=== PATIENT | male | born 1955 | race Caucasian/White ===

== ENCOUNTER → 2020-07-13 15:14 | Outpatient (BNVA) | payer OTHER, SELFPAY | PROVIDERS: PCP Internal Medicine; Referring Provider Physician Assistant; Visit Provider Internal Medicine Cardiovascular Disease | DX: I48.0 Paroxysmal atrial fibrillation (principal) | CPT/HCPCS: 99204 ==

== ENCOUNTER 2020-07-26 09:00 | Outpatient (RCR) | payer OTHER, SELFPAY ==
--- NOTE | 2020-08-29 09:11 | MHC.PT.DC ---
[facility] [place] [facility] [place] [facility] [place] [facility] [address] [phone] F: [phone] F: [phone] F: [phone] F: [phone] Physical Therapy Discharge Report Diagnosis: DIAGNOSIS: RIGHT KNEE OA Date of Surgery: none Date of Evaluation: 07/12/20 Date of Discharge: 07/25/20 Treatments to Date: 3 Cancellations to Date: 0 No Shows to Date: 0 Discharge Status: Recommend MD Follow-up for cardiac complaints Discharge Summary: Pt reported to provider that during bike that he is being worked up for rapid HR/afib. BP after bike 141/104 HR 106, SA02 98%. Following seated rest 118/85 HR 84 [id number] PT cx for Fri. JUL 16 for Cardiac workup. Electronically signed by: Sheila Sheth CONFIGURATION ENGINEER/EVERTON ONEAL PT, DPT Please sign and return to therapist. Thank you for your referral.
== END 2020-08-29 09:20 | disposition other institution (70) ==
LOC: HO.PT 09:00
PROVIDERS: Visit Provider Physician Assistant
DX: M17.11 Unilateral primary osteoarthritis, right knee (principal)
CPT/HCPCS: 97110; 97530

== ENCOUNTER → 2020-07-28 09:24 | Outpatient (REF) | payer OTHER, SELFPAY ==
--- NOTE | 2020-07-28 09:30 | CA_ITS ---
Transthoracic Echocardiogram Patient (Last, First, Middle): Huber Keys R Gender: Male Date of : 1955 Age: 64 Procedure Date: 07/28/2020 Procedure Type: Transthoracic Echocardiogram Location: OP Height: 182.88 cm Weight: 95.25 kg BSA: 2.17 m2 Heart Rate: bpm BP: 122 / 78 mmHg Hydrometer Finisher: Referring MD: Kenny Isabel MD Symptoms: I48.0 PAF Study Quality: Good ECG Rhythm: Atrial Fibrillation Conclusions: - Mildly increased left ventricular cavity size. There is normal left ventricular wall thickness. The left ventricular systolic function is severely decreased. The visually estimated ejection fraction is between 15-20%. - Mildly increased right ventricular cavity size. There is mildly decreased right ventricular systolic function. - Severe biatrial enlargement. - There is moderate to severe mitral valve regurgitation. There is apical tethering of the mitral valve leaflets. - There is moderate tricuspid valve regurgitation. There is apical tethering of the tricuspid valve leaflets. Significantly elevated right atrial pressure. Mild pulmonary hypertension is present. - There is mild dilatation of the ascending aorta. Findings Left Ventricle Mildly increased left ventricular cavity size. There is normal left ventricular wall thickness. The left ventricular systolic function is severely decreased. The visually estimated ejection fraction is between 15 20%. There is severe global hypokinesis. Diastolic function is indeterminate on the basis of available data. Right Ventricle Mildly increased right ventricular cavity size. There is mildly decreased right ventricular systolic function. Atria Severe biatrial enlargement. There is no evidence of interatrial shunt by color Doppler. Aortic Valve There is a normal trileaflet aortic valve. There is no aortic valve stenosis. There is trace (trivial) aortic valve regurgitation. Mitral Valve There is moderate to severe mitral valve regurgitation. There is apical tethering of the mitral valve leaflets. Pulmonic Valve The pulmonic valve is likely normal. Tricuspid Valve There is moderate tricuspid valve regurgitation. There is apical tethering of the tricuspid valve leaflets. Significantly elevated right atrial pressure. Mild pulmonary hypertension is present. Great Vessels There is mild dilatation of the ascending aorta. The visualized portions of the pulmonary artery and branches are normal. Venous The inferior vena cava is dilated and does not collapse with inspiration. Pericardium/Pleural There is no evidence of pericardial effusion. Prior Study Comparison No prior study available for comparison. Measurements 2D Linear Measurements IVSd: 1.05 0.6-0.9/0.6-1.0 cm LVIDd: 6.17 3.9-5.3/4.2-5.9 cm LVIDs: 5.55 2.0-3.6 cm LVPWd: 1.01 0.7-1.1 cm Ao Root: 3.59 2.1-3.5 cm LV Mass: 335.90 67-162/88-224 g LVOT Diam: 2.21 3.0+(-)1.3 cm Mitral Valve MR VTI: 1.85 Aortic Valve AoV Pk Fam: 0.89 AoV Mn Fam: 0.65 AoV VTI: 0.18 AoV Pk Grad: 3.14 Aov Mn Grad: 1.91 LVOT LVOT Pk Fam: 0.81 LVOT Mn Fam: 0.54 LVOT VTI: 0.15 LVOT Pk Grad: 2.65 LVOT Mn Grad: 1.42 LVOT Diam: 2.21 LVOT Area: 3.85 Tricuspid Valve TR Pk Fam: 2.64 TR Pk Grad: 27.90 RA Press: 3.00 RVSP: 45.00 Great Vessels Aorta Ao Root-2D: 3.59 2.0-3.7 cm Ao Asc: 3.70 2.1-3.4 cm Pulmonary Valve PV Pk Fam: 0.74 Peak PV Grad: 2.20 Updated in Other Vendor System with Status of Final Kenny Isabel MD electronically signed on 07/30/2020 8:02:49 PM with status of Final
== END ==
LOC: HO.CARD 09:24
PROVIDERS: Visit Provider Internal Medicine Cardiovascular Disease
DX: I48.0 Paroxysmal atrial fibrillation (principal)
CPT/HCPCS: 93306

== ENCOUNTER 2020-10-19 15:42 | Inpatient (IN) | payer OTHER, SELFPAY ==
[2020-10-19 19:09] VITALS: PULSE 105; RESP 16; TEMP 36.7; O2SAT 97; BMI 29.7
--- NOTE | 2020-10-19 19:38 | ED_ITS ---
HPI - Fall General Chief Complaint: Fall Stated Complaint: FALL Time Seen by Provider: 10/19/20 19:32 Source: patient Mode of arrival: ambulatory Limitations: no limitations History of Present Illness HPI Narrative: Patient was standing on the ladder about 10 ft high did not eat much all day today was exhausted felt lightheaded and next thing he noticed that he fell down was wearing the hard hat found himself face down on the dirt complaining of upper back pain no chest pain or shortness of breath no palpitation a similar episode of dizziness last year patient complaining of pain in the upper back and the lower jaw no headache no extremities pain patient was told that he has atrial fibrillation about 2 months ago and had intermittent palpitation but he did not aware most of the time not been treated with any medications and today also patient earlier in the morning felt dizzy and has slight palpitation but is not sure when he was on the ladder. When he arrived his heart rate was between 130s in 140s AFib complaint: fall Related Data Home Medications Medication Instructions Recorded Confirmed No Known Home Meds 07/13/20 07/13/20 Allergies Allergy/AdvReac Type Severity Reaction Status Date / Time amoxicillin [AMOXICILLIN] AdvReac Unknown STOMACH Verified 07/13/20 15:29 UPSET Review of Systems Review of Systems: Constitutional : No Weight loss, No Fever, No Chills ENT/Mouth : No sore throat, No Rhinorrhea Eyes: No Eye Pain, No Swelling Cardiovascular : No Chest Pain, no palpitations Respiratory : No Cough, No Sputum, no shortness of breath Gastrointestinal : no Nausea, No Vomiting, No Diarrhea, No abdominal Pain, no black stools Genitourinary : No Dysuria, No Urinary Frequency Musculoskeletal : No joint pain, No Myalgias, No Joint Swelling Skin : No Skin Lesions, No rash Neuro : No Weakness, No Numbness, ++ Dizziness, No Headache Psych : No Anxiety/Panic, No Depression Heme/Lymph: No Bruising, No Lymphadenopathy Endocrine : No Polyuria, No Polydipsia All other systems reviewed and are negative [facility] Past Medical History Medical History Basal cell carcinoma Elevated PSA 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 Surgical History Hx of vein stripping S/P left inguinal herniorrhaphy Family History Family History Father Lymphoma Mother Hemochromatosis Factor V Leiden Esophageal cancer Social History Social History Alcohol intake: current Alcohol intake frequency: a few times a month Smoking Status: Never smoker Use of substances other than those prescribed or required for medical reasons: No Advance Directives: No Advance Directives Information Provided: Yes Physical Exam Vital Signs: Vital Signs: Last Vital Signs Temp 98.1 F 10/19/20 19:09 Pulse 93 10/19/20 22:17 Resp 18 10/19/20 22:17 BP 131/93 H 10/19/20 22:17 Pulse Ox 97 10/19/20 22:17 Body Mass Index 29.7 Const: General: cooperative, healthy appearing, comfortable and no acute distress Nutritional Appearance: average body habitus Orientation/con sciousness: oriented to person, oriented to place, oriented to time and patient oriented x3 HENMT: Head: Yes No palpable skull fracture present, Yes normocephalic and Yes atraumatic Ears: hearing grossly normal bilaterally, external ears normal and TM's normal bilaterally General nose exam: Normal external nose present Face and sinus: Yes normal facial exam Mouth: Normal oral and palatal mucosa present Teeth and gingiva: dentition normal Teeth image: 1. Diffuse tenderness lower teeth Eyes: General: appearance normal, both eyes and all related structures Conjunctivae: conjunctivae normal Sclerae: sclerae normal Pupils: Equal, round and reactive pupils present Neck: Neck: Yes normal visual inspection, Yes full ROM, Yes no lymphadenopathy, No midline deformity and No tender Chest: Chest palpation & inspection: normal inspection of the chest and normal palpation of entire chest wall Resp: Effort & Inspection: normal respiratory effort Auscultation: clear to auscultation bilaterally, no crackles, no rales and no rhonchi Cardio: Rate: tachycardic Rhythm: abnormal rhythm irregularly irregular Heart sounds: S1 normal heart sound present and S2 normal heart sound present GI: Inspection: Yes normal to inspection Palpation (GI): Soft to palpation and nontender Percussion: Yes normal to percussion : General: Yes no CVA tenderness Back/Spine/Pelvis: Back: no CVA tenderness Cervical Spine: normal cervical lordosis, cervical ROM normal and No pain with cervical ROM Thoracic/Lumbar Spine: straight leg raise negative bilaterally, thoraco-lumbar spasm, thoracic spinal tenderness at T6 and at T7, No lumbar spinal tenderness and No straight leg raise positive Skin: General skin exam: no rashes or lesions noted Neuro: General: oriented to person, oriented to place, oriented to time, patie nt oriented x3, gait normal, tone normal, moves all extremities, no focal motor deficits, CN's II-XI intact bilaterally and normal sensation to monofilament Cranial nerves: Yes Equal, round and reactive pupils present Extrem: General: Yes normal to inspection, Yes full ROM and Yes no pedal edema MDM - Fall MDM Narrative Medical decision making narrative: Patient with atrial fibrillation not on any treatment came here after syncope episode with fall while on the ladder CT scan did not show any acute injury radiographer cardiac catheterization showed atrial fibrillation with ventricular rate in 130s responded to IV Cardizem patient started on heparin patient denies any chest pain troponin is elevated likely from increased demand because of AFib of the head C-spine and facial bones and thoracic spine is negative for any acute fracture will admit patient for AFib syncope and ACS Differential Diagnosis Differential diagnosis: Likely syncope Medical Records Attestation: I reviewed the patient's medical records. Lab Data Attestation: I reviewed the patient's lab results. Result diagrams: 10/19/20 20:04 10/19/20 20:04 Labs: Lab Results 10/19/20 10/19/20 10/19/20 Range/Units 20:04 20:04 20:04 WBC 10.0 (4.8-10.8) X10*3/uL RBC 4.57 L (4.60-5.80) X10*6/uL Hgb 14.9 (14.0-18.0) g/dl Hct 42.4 (42-52) % MCV 92.8 (80-98) fL MCH 32.6 (27.0-33.0) pg MCHC 35.1 (31.0-36.0) g/dl RDW 12.6 (11.0-16.0) % Plt Count 146 L (160-400) X10*3/uL MPV 9.7 (9.4-12.4) fL Immature Gran % (Auto) 0.2 (0.0-0.4) % Neut % (Auto) 86.0 H (45-73) % Lymph % (Auto) 6.6 L (20-40) % [place] % (Auto) 6.8 (2-11) % Eos % (Auto) 0.1 (0-4) % Baso % (Auto) 0.3 (0-2) % Lymph # (Auto) 0.7 L (1.2-4.9) X10*3/uL [place] # (Auto) 0.7 (0.1-1.2) X10*3/uL Eos # (Auto) 0.0 (0.0-0.4) X10*3/uL Baso # (Auto) 0.0 (0.0-0.2) X10*3/uL Abs Immat Gran (auto) 0.02 (0.00-0.03) X10*3/uL Absolute Neuts (auto) 8.6 H (2.0-8.3) X10*3/uL Absolute Nucleated RBC 0.000 (0.0-0.012) X10*3/uL Nucleated RBC % (auto) 0.0 (0.0-0.2) /100WBC PT 14.1 H (10.8-13.0) SEC INR 1.2 H (0.9-1.1) APTT 35.2 (24.1-38.0) SEC Sodium (135-145) mmol/L Potassium (3.3-5.1) mmol/l Chloride (96-108) mmol/L Carbon Dioxide (22-29) mmol/L Anion Gap (12-20) BUN (9-16) mg/dL Creatinine (0.5-1.4) mg/dL Estim Creat Clear Calc Estimated GFR Random Glucose (60-115) mg/dL Calcium (8.4-10.2) mg/dL Total Bilirubin (0.0-1.0) mg/dL Direct Bilirubin (0.0-0.5) mg/dL AST (5-37) U/L ALT (0-40) U/L Alkaline Phosphatase (39-117) U/L Troponin I High Sens 1149.7 H (<3.5-35.0) ng/L Total Protein (6.5-8.0) g/dL Albumin (3.5-5.0) g/dL 10/19/20 Range/Units 20:04 WBC (4.8-10.8) X10*3/uL RBC (4.60-5.80) X10*6/uL Hgb (14.0-18.0) g/dl Hct (42-52) % MCV (80-98) fL MCH (27.0-33.0) pg MCHC (31.0-36.0) g/dl RDW (11.0-16.0) % Plt Count (160-400) X10*3/uL MPV (9.4-12.4) fL Immature Gran % (Auto) (0.0-0.4) % Neut % (Auto) (45-73) % Lymph % (Auto) (20-40) % [place] % (Auto) (2-11) % Eos % (Auto) (0-4) % Baso % (Auto) (0-2) % Lymph # (Auto) (1.2-4.9) X10*3/uL [place] # (Auto) (0.1-1.2) X10*3/uL Eos # (Auto) (0.0-0.4) X10*3/uL Baso # (Auto) (0.0-0.2) X10*3/uL Abs Immat Gran (auto) (0.00-0.03) X10*3/uL Absolute Neuts (auto) (2.0-8.3) X10*3/uL Absolute Nucleated RBC (0.0-0.012) X10*3/uL Nucleated RBC % (auto) (0.0-0.2) /100WBC PT (10.8-13.0) SEC INR (0.9-1.1) APTT (24.1-38.0) SEC Sodium 136 (135-145) mmol/L Potassium 4.2 (3.3-5.1) mmol/l Chloride 102 (96-108) mmol/L Carbon Dioxide 25 (22-29) mmol/L Anion Gap 13 (12-20) BUN 20 H (9-16) mg/dL Creatinine 0.91 (0.5-1.4) mg/dL Estim Creat Clear Calc 107.3 Estimated GFR > 60 Random Glucose 129 H (60-115) mg/dL Calcium 8.5 (8.4-10.2) mg/dL Total Bilirubin 3.3 H (0.0-1.0) mg/dL Direct Bilirubin 0.7 H (0.0-0.5) mg/dL AST 91 H (5-37) U/L ALT 81 H (0-40) U/L Alkaline Phosphatase 75 (39-117) U/L Troponin I High Sens (<3.5-35.0) ng/L Total Protein 6.8 (6.5-8.0) g/dL Albumin 4.5 (3.5-5.0) g/dL ECG Data Attestation: I personally reviewed and interpreted this ECG as follows: Interpretation: Atrial fibrillation with rapid ventricular rate heart rate 125 incomplete right bundle-branch block left anterior fascicular block no acute ischemic changes impression atrial fibrillation with fast ventricular rate Discharge Plan Discharge Clinical Impression: Atrial fibrillation with rapid ventricular response Syncope Qualifiers: Syncope type: unspecified Qualified Code(s): R55 - Syncope and collapse Fall from ladder Qualifiers: Encounter type: initial encounter Qualified Code(s): W11.XXXA - Fall on and from ladder, initial encounter Patient Disposition: Admitted As Inpatient
--- NOTE | 2020-10-19 19:42 | CT_ITS ---
EXAMINATION: CT THORACIC SPINE WITHOUT CONTRAST CLINICAL INFORMATION: Fall. Pain. COMPARISON: None TECHNIQUE: Axial images obtained through the thoracic spine. Coronal and sagittal reformatted images are performed at CT scanner This CT examination was performed using dose optimization techniques as appropriate, variously including the following: *Automated exposure control *Adjustment of mA and/or kV according to patient size (this includes techniques or standardized protocols for targeted exams where dose is matched to indication/reason for exam; i.e. extremities or head) *Use of iterative reconstruction technique DLP: 831.49+23.39 mGy-cm FINDINGS: Thoracic vertebrae have normal height and alignment. No fracture or bone destruction. No paraspinal soft tissue hematoma or mass. There is degenerative spondylosis. There is multilevel disc height narrowing with bridging and nonbridging vertebral endplate spurs. CT/CT thoracic spine wo con IMPRESSION: No acute abnormality CT of thoracic spine.
--- NOTE | 2020-10-19 19:43 | CT_ITS ---
EXAMINATION: CT HEAD WITHOUT CONTRAST CT FACIAL BONES WITHOUT CONTRAST CT CERVICAL SPINE WITHOUT CONTRAST CLINICAL INFORMATION: Fall. COMPARISON: None. TECHNIQUE: Imaging was performed from the skull base to vertex without intravenous administration of contrast. In addition, helical noncontrast CT imaging was acquired through the cervical spine and facial bones and source images were reviewed along with axial reconstructions and sagittal and coronal MPRs. [This CT examination was performed using dose optimization techniques as appropriate, variously including the following: *Automated exposure control *Adjustment of mA and/or kV according to patient size (this includes techniques or standardized protocols for targeted exams where dose is matched to indication/reason for exam; i.e. extremities or head) *Use of iterative reconstruction technique] DLP: 826.55+513.78+297.02+10.25 mGy-cm FINDINGS: HEAD: No intracranial mass, hemorrhage, or midline shift is visualized. The ventricles and sulci are age-appropriate. No extra-axial collections are identified. FACIAL BONES: There is no facial bone fracture. The orbits and retrobulbar structures are normal. There are small areas of lobular mucosal thickening in the right maxillary sinus. The paranasal sinuses are otherwise normally aerated. There is normal aeration of the mastoid air cells and middle ear cavities. CERVICAL SPINE: There is no evidence of acute cervical spine fracture. Vertebral bodies remain normal in height. There is degenerative disc height narrowing and vertebral endplate spurring C4-C5 through C6-C7. No pre- or paravertebral soft tissue abnormality is identified. Limited assessment of the lung apices is unremarkable. CT/CT cervical spine wo con IMPRESSION: 1. No acute intracranial process or discrete facial bone fracture. 2. No acute cervical spine fracture or traumatic subluxation.
--- NOTE | 2020-10-19 19:45 | ECG_ITS ---
Test Reason : SYNCOPE Blood Pressure : / mmHG Vent. Rate : 125 BPM Atrial Rate : 115 BPM P-R Int : 000 ms QRS Dur : 116 ms QT Int : 342 ms P-R-T Axes : 000 -53 002 degrees QTc Int : 493 ms Atrial fibrillation with rapid ventricular response with premature ventricular or aberrantly conducted complexes Incomplete right bundle branch block Left anterior fascicular block Septal infarct , age undetermined Abnormal ECG No previous ECGs available Referred By: John Avendano Electronically Signed By:Kenny Isabel
--- NOTE | 2020-10-19 19:56 | PC.NURSE ---
pt put on monitor, rythm afib RVR rate 150-161. Pt reports mild dizziness. He states his MD told him he had afib but he was going to seek a second oppinion. He is not taking any meds or blood thinners
[2020-10-19 20:20] LABS: Basophils Percent Auto 0.3 % (0-2); Eosinophils Percent Auto 0.1 % (0-4); Hematocrit 42.4 % (42-52); Hemoglobin 14.9 g/dl (14.0-18.0); Imm Gran Abs Auto 0.02 X10*3/uL (0.00-0.03); Imm Gran Pct Auto 0.2 % (0.0-0.4); Lymphocytes Absolute Auto 0.7 X10*3/uL (1.2-4.9); Lymphocytes Percent Auto 6.6 % (20-40); Mean Corpuscular HGB Conc 35.1 g/dl (31.0-36.0); Mean Corpuscular Hemoglobin 32.6 pg (27.0-33.0); Mean Corpuscular Volume 92.8 fL (80-98); Mean Platelet Volume 9.7 fL (9.4-12.4); Monocytes Absolute Auto 0.7 X10*3/uL (0.1-1.2); Monocytes Percent Auto 6.8 % (2-11); Neutrophils Absolute Auto 8.6 X10*3/uL (2.0-8.3); Platelet Count 146 X10*3/uL (160-400); Red Blood Count 4.57 X10*6/uL (4.60-5.80); Red Cell Distribution Width 12.6 % (11.0-16.0); SCAN SMEAR FLAG 1
[2020-10-19 20:23] LABS: MANUAL DIFF FLAG NO
[2020-10-19 20:26] LABS: INTERNATIONAL NORM RATIO 1.2 (0.9-1.1); Prothrombin Time 14.1 SEC (10.8-13.0)
[2020-10-19 20:28] LABS: Partial Thromboplastin Time 35.2 SEC (24.1-38.0)
[2020-10-19 20:46] LABS: Alanine Aminotransferase 81 U/L (0-40); Albumin Level 4.5 g/dL (3.5-5.0); Alkaline Phosphatase 75 U/L (39-117); Anion Gap 13 (12-20); Aspartate Amino Transferase 91 U/L (5-37); Bilirubin Direct 0.7 mg/dL (0.0-0.5); Bilirubin Total 3.3 mg/dL (0.0-1.0); Blood Urea Nitrogen 20 mg/dL (9-16); Calcium 8.5 mg/dL (8.4-10.2); Carbon Dioxide 25 mmol/L (22-29); Chloride 102 mmol/L (96-108); Creatinine Clr Calc Pharmacy 107.3; Estimated Glomerular Filt Rate > 60; Glucose Random 129 mg/dL (60-115); Potassium 4.2 mmol/l (3.3-5.1); Sodium 136 mmol/L (135-145); Total Protein 6.8 g/dL (6.5-8.0)
[2020-10-19 20:59] LABS: Troponin-I High Sensitivity 1149.7 ng/L (<3.5-35.0)
[2020-10-19] MEDS: dilTIAZem HCL 50 MG/10 ML VIAL 20 MG IVPUSH (21:01)
[2020-10-19 21:25] VITALS: BP 126/99; PULSE 93; RESP 16; O2SAT 99
[2020-10-19] MEDS: Heparin Sodium,Porcine 5,000 UNIT/ML VIAL 5000 UNIT IVPUSH (21:28)
[2020-10-19] MEDS: Heparin Sodium,Porcine/1/2NS 25,000 UNIT/250 ML IV.SOLN 10.5 UNIT IVCONT (21:32)
[2020-10-19] MEDS: Aspirin 81 MG TAB.CHEW 162 MG PO (21:39)
--- NOTE | 2020-10-19 22:10 | PC.NURSE ---
pt got first dose of IVP diltiazem with improvement of HR. He is afib rate 90-100. Pt tolerating PO snack. Hepari drip started per protocol. Will continue to monitor
[2020-10-19 22:17] VITALS: BP 131/93; PULSE 93; RESP 18; O2SAT 97
--- NOTE | 2020-10-19 23:30 | PC.NURSE ---
ASSUMED CARE OF PT. PT RESTING IN STRETCHER IN NAD. PT DENIES ANY COMPLAINTS. HEPARIN UP AND RUNNING ON PUMP AT 10UNITS/KG/HR, SITE INTACT. PT REMAIN ON MONITOR IN A-FIB WTIH A HR OF 90. PT WAKES TO VERBAL STIMULI, RESPIRATIONS EASY, N/L. SKIN W/D. PT ADMITTED AND AWAITING FOR ROOM ASSIGNMENT IN AM.
[2020-10-20] VITALS (12 sets, daily range): BP systolic 121–144; BP diastolic 68–98; PULSE 84–111; RESP 15–24; TEMP 36.9–37.1; O2SAT 95–98
--- NOTE | 2020-10-20 | ECG_ITS ---
Test Reason : SYNCOPE Blood Pressure : / mmHG Vent. Rate : 092 BPM Atrial Rate : 202 BPM P-R Int : 000 ms QRS Dur : 120 ms QT Int : 404 ms P-R-T Axes : 000 -52 -42 degrees QTc Int : 499 ms Atrial fibrillation with premature ventricular or aberrantly conducted complexes Right bundle branch block Left anterior fascicular block Bifascicular block Septal infarct (cited on or before 19-OCT-2020) T wave abnormality, consider lateral ischemia Abnormal ECG When compared with ECG of 19-OCT-2020 20:09, No significant changes seen Referred By: Heather Richter Electronically Signed By:Kenny Isabel
[2020-10-20 00:50] LABS: Appearance Urine CLEAR; Color Urine YELLOW; Glucose Urine UA NEG (NEG); Leukocyte Esterase Urine NEG (NEG); Nitrite Urine NEG (NEG); PH 6.5 (5.0-8.0); Urine Blood 3+ (NEG); Urine Ketones NEG (NEG); Urine Protein NEG (NEG-TRACE)
[2020-10-20 00:57] LABS: Bacteria Urine 1+ /LPF; Squamous Epithelial Cell Urine 1+ /LPF
[2020-10-20] MEDS: oxyCODONE HCl Immed Release 5 MG TABLET 10 MG PO (03:24)
--- NOTE | 2020-10-20 03:45 | PC.NURSE ---
PT C/O PAIN IN NECK, HEAD, AND UPPER BACK. MD AWARE AND MEDICATED FOR PAIN. PT ALSO UNABLE TO SLEEP D/T NOISE FROM OTHER PATIENTS IN ED. PT DENIES ANY OTHER COMPLAINTS. PT REMAINS ON MONITOR WITH HR 90. LABS DRAWN TO LAB FOR EVAL. HEPARIN REMAINS RUNNING ON PUMP, SITE INTACT. CALL ODEN AND URINAL W/I REACH OF PT. BED IN LOW LOCKED POSITION. WILL CONTINUE TO MONITOR PT.
[2020-10-20 04:00] LABS: PLT CLUMP 1
[2020-10-20 04:02] LABS: Hematocrit 39.9 % (42-52); Hemoglobin 13.8 g/dl (14.0-18.0); Mean Corpuscular HGB Conc 34.6 g/dl (31.0-36.0); Mean Corpuscular Volume 92.6 fL (80-98); Mean Platelet Volume 10.2 fL (9.4-12.4); Platelet Count 136 X10*3/uL (160-400); Red Blood Count 4.31 X10*6/uL (4.60-5.80); Red Cell Distribution Width 12.5 % (11.0-16.0); White Blood Count 8.5 X10*3/uL (4.8-10.8)
[2020-10-20 04:06] LABS: INTERNATIONAL NORM RATIO 1.3 (0.9-1.1); Prothrombin Time 15.6 SEC (10.8-13.0)
[2020-10-20 04:08] LABS: PTT Heparin Drip 88.7 SEC (53-77.9)
--- NOTE | 2020-10-20 04:11 | PC.NURSE ---
Pt resting in stretcher in NAD. Heparin up and running on pump, site intact. Pt remains on monitor with HR 71. Pt denies any complaints at this time.
--- NOTE | 2020-10-20 08:05 | PC.NURSE ---
report taken from Mehnaz SOTELO. pt sleeping upon assessment. woke easily to voice. breakfast provided. pt asking when he will be moved to room. informed pt that as soon as room is available and assign will inform him. heparin drip running at 8units/kg/hour. next ptt to be drawn at 930. pt reporting back pain from fall yesterday. alert and oriented x 3. .
[2020-10-20 10:00] LABS: PTT Heparin Drip 66.7 SEC (53-77.9)
--- NOTE | 2020-10-20 10:21 | PC.NURSE ---
pt PTT result 66.7. per protocol no bolus, no rate change. next PTT due 1530.
[2020-10-20] MEDS: Acetaminophen 325 MG TABLET 650 MG PO (11:56)
[2020-10-20 17:00] LABS: PTT Heparin Drip 60.2 SEC (53-77.9)
[2020-10-20 17:18] LABS: COVID-19 Test Negative (Negative); IDNOW Serial# 9DD0AD1C
[2020-10-20 18:03] LABS: Troponin-I High Sensitivity 266.7 ng/L (<3.5-35.0)
--- NOTE | 2020-10-20 18:26 | P.HPHOSP_ITS ---
History of Present Illness Date of Service: 10/20/20 <TYRONE Terrazas - Last Filed: 10/20/20 18:40> Chief Complaint: Syncope <TYRONE Terrazas - Last Filed: 10/20/20 18:40> This is a 64-year-old male who presents the emergency department after syncopal event. Patient states that he was working on his a ladder when he felt himself becoming lightheaded. He passed out falling from the ladder landing face 1st. This fall was witnessed and he came to immediately after falling. He denies any palpitations chest pain or shortness of breath prior to his fall. Imaging including facial bone CT, C-spine CT, thoracic spine CT, head CT showed no acute abnormalities. Patient does report intermittent palpitations over the past several weeks. He denies any chest pain or shortness of breath. He was diagnosed with atrial fibrillation and was evaluated by Cardiology in July. History CHADs score was low and he was not started on anticoagulation and he did not want to start any other rate control medication. He had an echocardiogram which showed an ejection fraction of 15-20%. On arrival he was noted to be in atrial fibrillation with rapid ventricular response. He was treated with a dose of IV Cardizem. Lab work revealed troponin of 1149. He was started on heparin drip. Repeat troponin has decreased to 266. EKG shows T-wave inversions in leads V4 through V6. <TYRONE Terrazas - Last Filed: 10/20/20 18:40> Review of Systems Review of Systems: Yes all other systems are reviewed and are negative <TYRONE Terrazas Last Filed: 10/20/20 18:40> Constitutional: Constitutional: Denies chills and Denies fever(s) <TYRONE Terrazas Last Filed: 10/20/20 18:40> Cardiovascular: Cardiovascular: Denies chest pain <TYRONE Terrazas Last Filed: 10/20/20 18:40> Respiratory: Respiratory: Denies cough <TYRONE Terrazas Last Filed: 10/20/20 18:40> Gastrointestinal: Gastrointestinal: Denies abdominal pain <TYRONE Terrazas Last Filed: 10/20/20 18:40> [facility] Medical History: Medical History (Updated 10/20/20 @ 18:35 by TYRONE Terrazas) Atrial fibrillation Basal cell carcinoma Elevated PSA 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 <TYRONE Terrazas - Last Filed: 10/20/20 18:40> Functional capacity: independent ambulation <TYRONE Terrazas - Last Filed: 10/20/20 18:40> Family History: Family History Father Lymphoma Mother Hemochromatosis Factor V Leiden Esophageal cancer <TYRONE Terrazas - Last Filed: 10/20/20 18:40> Surgical History: Surgical History Hx of vein stripping S/P left inguinal herniorrhaphy <TYRONE Terrazas - Last Filed: 10/20/20 18:40> Social History: Social History Household Members: Spouse Housing: House Do you presently have visiting nurse or other home services: No Alcohol intake: current Alcohol intake frequency: a few times a month Smoking Status: Never smoker Smoked in Last 30 Days: No Patient Interested in Nicotine Replacement: No Patient Given Instructions on How to Stop Smoking: No Second Hand Smoke Exposure: No Use of substances other than those prescribed or required for medical reasons: No Currently Displaying Signs/Symptoms of Drug Intoxication Withdrawal: No Any prior treatment program specific to substance use: No Have you been hit, kicked, punched, or otherwise hurt by someone within the past year? If so, by whom?: No Do you feel safe in your current relationship?: Yes Is there a partner from a previous relationship who is making you feel unsafe now?: No Are you made to feel afraid or neglected: No Advance Directives: No Advance Directives Information Provided: Yes Do you have thoughts of harming others: None Do you have a plan to hurt others: No Plan Recently lost weight without trying: No <TYRONE Terrazas - Last Filed: 10/20/20 18:40> Meds Allergies/Adverse reactions: Allergies Allergy/AdvReac Type Severity Reaction Status Date / Time amoxicillin [AMOXICILLIN] AdvReac Unknown STOMACH Verified 07/13/20 15:29 UPSET <TYRONE Terrazas Last Filed: 10/20/20 18:40> Home medications: Home Medications Medication Instructions Recorded Confirmed Type No Known Home Meds 07/13/20 10/20/20 History <TYRONE Terrazas Last Filed: 10/20/20 18:40> Physical Exam Vital Signs and Narrative: Vital Signs: Last Vital Signs Temp 98.4 F 10/20/20 11:07 Pulse 103 H 10/20/20 16:06 Resp 18 10/20/20 16:00 BP 144/68 H 10/20/20 16:00 Pulse Ox 98 10/20/20 16:00 Body Mass Index 29.7 <TYRONE Terrazas Last Filed: 10/20/20 18:40> Const: Nutritional Appearance: well nourished <TYRONE Terrazas Last Filed: 10/20/20 18:40> Orientation/consciousness: patient oriented x3 <TYRONE Terrazas Last Filed: 10/20/20 18:40> HENMT: Head: Yes normocephalic and Yes atraumatic <TYRONE Terrazas Last Filed: 10/20/20 18:40> Eyes: Sclerae: sclerae normal <TYRONE Terrazas Last Filed: 10/20/20 18:40> Chest: Chest palpation & inspection: normal inspection of the chest <TYRONE Alvarenga Last Filed: 10/20/20 18:40> Resp: Effort & Inspection: normal respiratory effort and no respiratory distress <TYRONE Terrazas Last Filed: 10/20/20 18:40> Auscultation: clear to auscultation bilaterally <TYRONE Terrazas Last Filed: 10/20/20 18:40> Cardio: Rate: tachycardic <TYRONE Terrazas Last Filed: 10/20/20 18:40> Rhythm: abnormal rhythm irregularly irregular <TYRONE Terrazas Last Filed: 10/20/20 18:40> GI: Palpation (GI): Soft to palpation and nontender <TYRONE Terrazas - Last Filed: 10/20/20 18:40> Skin: General skin exam: no rashes or lesions noted <TYRONE Terrazas - Last Filed: 10/20/20 18:40> Neuro: General: patient oriented x3 <TYRONE Terrazas - Last Filed: 10/20/20 18:40> Cranial nerves: Yes CN's II-XII intact bilaterally and Yes Bilaterally intact EOM present <TYRONE Terrazas - Last Filed: 10/20/20 18:40> Extrem: General: Yes normal to inspection <TYRONE Terrazas - Last Filed: 10/20/20 18:40> Results Labs CBC and Chem 7: : 10/21/20 05:57 10/21/20 05:57 <TYRONE Terrazas - Last Filed: 10/20/20 18:40> Labs: Laboratory Results - last 24 hr 10/19/20 10/19/20 10/19/20 20:04 20:04 20:04 MCV 92.8 MCH 32.6 MCHC 35.1 RDW 12.6 Plt Count 146 L MPV 9.7 Immature Gran % (Auto) 0.2 Neut % (Auto) 86.0 H Lymph % (Auto) 6.6 L [place] % (Auto) 6.8 Eos % (Auto) 0.1 Baso % (Auto) 0.3 Lymph # (Auto) 0.7 L [place] # (Auto) 0.7 Eos # (Auto) 0.0 Baso # (Auto) 0.0 Abs Immat Gran (auto) 0.02 Absolute Neuts (auto) 8.6 H Absolute Nucleated RBC 0.000 Nucleated RBC % (auto) 0.0 PT 14.1 H INR 1.2 H APTT 35.2 PTT (Heparin Protocol) Anion Gap Estim Creat Clear Calc Estimated GFR Random Glucose Calcium Total Bilirubin Direct Bilirubin AST ALT Alkaline Phosphatase Troponin I High Sens 1149.7 H Total Protein Albumin Urine Color Urine Appearance Urine pH Ur Specific [place] Urine Protein Urine Glucose (UA) Urine Ketones Urine Blood Urine Nitrite Ur Leukocyte Esterase Urine RBC Urine WBC Ur Squamous Epith Cells Urine Bacteria COVID-19 ([facility]) COVID-19 Clin Com 10/19/20 10/20/20 10/20/20 20:04 00:30 03:42 MCV 92.6 MCH 32.0 MCHC 34.6 RDW 12.5 Plt Count 136 L MPV 10.2 Immature Gran % (Auto) Neut % (Auto) Lymph % (Auto) [place] % (Auto) Eos % (Auto) Baso % (Auto) Lymph # (Auto) [place] # (Auto) Eos # (Auto) Baso # (Auto) Abs Immat Gran (auto) Absolute Neuts (auto) Absolute Nucleated RBC 0.000 Nucleated RBC % (auto) 0.0 PT INR APTT PTT (Heparin Protocol) Anion Gap 13 Estim Creat Clear Calc 107.3 Estimated GFR > 60 Random Glucose 129 H Calcium 8.5 Total Bilirubin 3.3 H Direct Bilirubin 0.7 H AST 91 H ALT 81 H Alkaline Phosphatase 75 Troponin I High Sens Total Protein 6.8 Albumin 4.5 Urine Color YELLOW Urine Appearance CLEAR Urine pH 6.5 Ur Specific [place] 1.020 Urine Protein NEG Urine Glucose (UA) NEG Urine Ketones NEG Urine Blood 3+ H Urine Nitrite NEG Ur Leukocyte Esterase NEG Urine RBC 15-29 H Urine WBC 1-4 Ur Squamous Epith Cells 1+ Urine Bacteria 1+ COVID-19 ([facility]) COVID-19 [place] 10/20/20 10/20/20 10/20/20 03:42 03:42 09:35 MCV MCH MCHC RDW Plt Count MPV Immature Gran % (Auto) Neut % (Auto) Lymph % (Auto) [place] % (Auto) Eos % (Auto) Baso % (Auto) Lymph # (Auto) [place] # (Auto) Eos # (Auto) Baso # (Auto) Abs Immat Gran (auto) Absolute Neuts (auto) Absolute Nucleated RBC Nucleated RBC % (auto) PT Cancelled 15.6 H INR Cancelled 1.3 H APTT PTT (Heparin Protocol) 88.7 H 66.7 D Anion Gap Estim Creat Clear Calc Estimated GFR Random Glucose Calcium Total Bilirubin Direct Bilirubin AST ALT Alkaline Phosphatase Troponin I High Sens Total Protein Albumin Urine Color Urine Appearance Urine pH Ur Specific [place] Urine Protein Urine Glucose (UA) Urine Ketones Urine Blood Urine Nitrite Ur Leukocyte Esterase Urine RBC Urine WBC Ur Squamous Epith Cells Urine Bacteria COVID-19 ([facility]) COVID-19 Clin Com 10/20/20 10/20/20 10/20/20 16:24 16:24 16:44 MCV MCH MCHC RDW Plt Count MPV Immature Gran % (Auto) Neut % (Auto) Lymph % (Auto) [place] % (Auto) Eos % (Auto) Baso % (Auto) Lymph # (Auto) [place] # (Auto) Eos # (Auto) Baso # (Auto) Abs Immat Gran (auto) Absolute Neuts (auto) Absolute Nucleated RBC Nucleated RBC % (auto) PT INR APTT PTT (Heparin Protocol) 60.2 Anion Gap Estim Creat Clear Calc Estimated GFR Random Glucose Calcium Total Bilirubin Direct Bilirubin AST ALT Alkaline Phosphatase Troponin I High Sens 266.7 H D Total Protein Albumin Urine Color Urine Appearance Urine pH Ur Specific [place] Urine Protein Urine Glucose (UA) Urine Ketones Urine Blood Urine Nitrite Ur Leukocyte Esterase Urine RBC Urine WBC Ur Squamous Epith Cells Urine Bacteria COVID-19 ([facility]IE) Negative COVID-19 Clin Com See Note <TYRONE Terrazas - Last Filed: 10/20/20 18:40> Imaging Radiologist's Impressions: Impressions Face CT 10/19/20 19:42 IMPRESSION: 1. No acute intracranial process or discrete facial bone fracture. 2. No acute cervical spine fracture or traumatic subluxation. Thoracic Spine CT 10/19/20 19:42 IMPRESSION: No acute abnormality CT of thoracic spine. Cervical Spine CT 10/19/20 19:43 IMPRESSION: 1. No acute intracranial process or discrete facial bone fracture. 2. No acute cervical spine fracture or traumatic subluxation. Head CT 10/19/20 19:43 IMPRESSION: 1. No acute intracranial process or discrete facial bone fracture. 2. No acute cervical spine fracture or traumatic subluxation. <TYRONE Terrazas - Last Filed: 10/20/20 18:40> Assessment and Plan (1) Syncope: Qualifiers: Syncope type: unspecified Qualified Code(s): R55 - Syncope and collapse <TYRONE Terrazas Last Filed: 10/20/20 18:40> Status: Acute <TYRONE Terrazas Last Filed: 10/20/20 18:40> (2) Atrial fibrillation with rapid ventricular response: Status: Acute <TYRONE Terrazas Last Filed: 10/20/20 18:40> (3) NSTEMI (non-ST elevated myocardial infarction): Status: Acute <TYRONE Terrazas - Last Filed: 10/20/20 18:40> This is a 64-year-old male with a history of atrial fibrillation who presents the emergency department after syncopal then found to have atrial fibrillation with rapid ventricular response, NSTEMI NSTEMI Initial troponin 1149, repeat 266 Anticoagulation with heparin Aspirin, statin, beta-xavier Echocardiogram Lipid profile Cardiology consult Syncope Possibly secondary to a AFib with RVR Tele monitoring Echocardiogram AFib with RVR Heart rate improved somewhat after IV Cardizem Started on beta-xavier Cardiac monitoring Cardiology consult Elevated LFTs No abdominal pain Repeat LFTs DVT prophylaxis-heparin Code status-full code This case was discussed with Dr. Cordoba <TYRONE Terrazas - Last Filed: 10/20/20 18:40>
[2020-10-20] MEDS: Metoprolol Tartrate 25 MG TABLET PO (21:59)
[2020-10-20] MEDS: Atorvastatin Calcium 80 MG TABLET PO (22:00)
[2020-10-21] VITALS (7 sets, daily range): BP systolic 104–122; BP diastolic 67–98; PULSE 57–120; RESP 18–20; TEMP 36.4–36.8; O2SAT 97–98
[2020-10-21] MEDS: Heparin Sodium,Porcine/1/2NS 25,000 UNIT/250 ML IV.SOLN 8.4 UNIT IVCONT (02:35)
[2020-10-21 06:53] LABS: Basophils Absolute Auto 0.1 X10*3/uL (0.0-0.2); Basophils Percent Auto 0.8 % (0-2); Hemoglobin 13.9 g/dl (14.0-18.0); Imm Gran Abs Auto 0.02 X10*3/uL (0.00-0.03); Imm Gran Pct Auto 0.3 % (0.0-0.4); MANUAL DIFF FLAG SCAN; PLT CLUMP 1; SCAN SMEAR FLAG 1
[2020-10-21 06:54] LABS: Eosinophils Absolute Auto 0.1 X10*3/uL (0.0-0.4); Eosinophils Percent Auto 1.8 % (0-4); Hematocrit 40.4 % (42-52); Lymphocytes Absolute Auto 1.3 X10*3/uL (1.2-4.9); Mean Corpuscular HGB Conc 34.4 g/dl (31.0-36.0); Mean Corpuscular Hemoglobin 31.8 pg (27.0-33.0); Mean Corpuscular Volume 92.4 fL (80-98); Mean Platelet Volume 10.3 fL (9.4-12.4); Monocytes Absolute Auto 0.8 X10*3/uL (0.1-1.2); Monocytes Percent Auto 11.3 % (2-11); Neutrophils Percent Auto 67.8 % (45-73); Red Blood Count 4.37 X10*6/uL (4.60-5.80); Red Cell Distribution Width 12.1 % (11.0-16.0); White Blood Count 7.4 X10*3/uL (4.8-10.8)
[2020-10-21 07:31] LABS: Alanine Aminotransferase 76 U/L (0-40); Albumin Level 3.9 g/dL (3.5-5.0); Alkaline Phosphatase 66 U/L (39-117); Anion Gap 12 (12-20); Aspartate Amino Transferase 75 U/L (5-37); Bilirubin Direct 0.5 mg/dL (0.0-0.5); Bilirubin Total 4.7 mg/dL (0.0-1.0); Blood Urea Nitrogen 16 mg/dL (9-16); Calcium 8.3 mg/dL (8.4-10.2); Carbon Dioxide 26 mmol/L (22-29); Chloride 102 mmol/L (96-108); Cholesterol 146 mg/dL; Creatinine Clr Calc Pharmacy 131.9; Estimated Glomerular Filt Rate > 60; Glucose Random 97 mg/dL (60-115); HDL Cholesterol 51 mg/dL; LDL Cholesterol Calculated 82 mg/dl; Potassium 4.3 mmol/l (3.3-5.1); Sodium 136 mmol/L (135-145); Triglycerides 66 mg/dL
[2020-10-21 08:00] LABS: PTT Heparin Drip 51.6 SEC (53-77.9)
[2020-10-21] MEDS: Heparin Sodium,Porcine 5,000 UNIT/ML VIAL 4200 UNIT IVPUSH ×2 (08:42→23:14)
[2020-10-21] MEDS: Metoprolol Tartrate 25 MG TABLET PO ×2 (08:43→21:26)
[2020-10-21] MEDS: Aspirin Enteric Coated 81 MG TABLET.DR PO (08:43)
[2020-10-21 09:57] LABS: Platelet Count 135 X10*3/uL (160-400); SLIDE REVIEW VERIFIED
--- NOTE | 2020-10-21 13:41 | P.PNIM_ITS ---
Subjective Subjective Date of Service: 10/27/20 Interval History: Patient seen and examined at bedside patient denies any chest pain or shortness of breath Constitutional Constitutional: Denies chills and Denies fever(s) Cardiovascular Cardiovascular: Denies chest pain Respiratory Respiratory: Denies cough Gastrointestinal Gastrointestinal: Denies abdominal pain Physical Exam Vital Signs: Vital Signs: Last Vital Signs Temp 97.8 F 10/21/20 12:00 Pulse 57 10/21/20 12:00 Resp 20 10/21/20 12:00 BP 107/79 10/21/20 12:00 Pulse Ox 98 10/21/20 12:00 Body Mass Index 29.7 Const: Nutritional Appearance: well nourished Orientation/consciousness: patient oriented x3 HENMT: Head: Yes normocephalic and Yes atraumatic Eyes: Sclerae: sclerae normal Chest: Chest palpation & inspection: normal inspection of the chest Resp: Effort & Inspection: normal respiratory effort and no respiratory distress Auscultation: clear to auscultation bilaterally Cardio: Rate: tachycardic Rhythm: abnormal rhythm irregularly irregular GI: Palpation (GI): Soft to palpation and nontender Skin: General skin exam: no rashes or lesions noted Neuro: General: patient oriented x3 Cranial nerves: Yes CN's II-XII intact bilaterally and Yes Bilaterally intact EOM present Extrem: General: Yes normal to inspection Objective Data Current Medications Generic Name Dose Route Start Last Admin Trade Name Freq PRN Reason Stop Dose Admin Acetaminophen 650 mg 10/20/20 18:23 Acetaminophen 325 Mg Tablet PO Q6H PRN Pain, Mild (Pain Scale 1-3) Aspirin 81 mg 10/21/20 09:00 10/21/20 08:43 Aspirin Enteric Coated 81 Mg Tablet.Dr PO 81 mg DAILY RUBI Administration Atorvastatin Calcium 80 mg 10/20/20 21:00 10/20/20 22:00 Atorvastatin Calcium 80 Mg Tablet PO 80 mg BEDTIME RUBI Administration Docusate Sodium 100 mg 10/20/20 18:23 Docusate Sodium 100 Mg Capsule PO DAILY PRN Constipation Heparin Sodium (Porcine) 8,400 unit 10/19/20 21:01 Heparin Sodium,Porcine 5,000 Unit/Ml Vial 80 unit/kg (8400 unit) IVPUSH BOLUS PRN 80 unit/kg - Heparin Protocol Heparin Sodium (Porcine) 4,200 unit 10/19/20 21:01 10/21/20 08:42 Heparin Sodium,Porcine 5,000 Unit/Ml Vial 40 unit/kg (4200 unit) 4,200 unit IVPUSH Administration BOLUS PRN HEPARINPRO Heparin Sodium/Sodium Chloride 25,000 unit in 250 mls @ 0 mls/hr 10/19/20 21:15 10/21/20 08:44 IVCONT 10 units/kg/hr .Q0M RUBI 10.5 mls/hr Titration Protocol Per Protocol Metoprolol Tartrate 25 mg 10/20/20 21:00 10/21/20 08:43 Metoprolol Tartrate 25 Mg Tablet PO 25 mg BID RUBI Administration Protocol Sodium Chloride 3 ml 10/21/20 00:00 10/21/20 08:50 0.9 % Sodium Chloride Flush 3 Ml Syringe IVFLUSH Not Given QSHIFT [facility] Labs CBC & Chem 7: 10/21/20 05:57 10/23/20 05:34 Assessment and Plan (1) Syncope: Status: Acute (2) Atrial fibrillation with rapid ventricular response: Status: Acute (3) NSTEMI (non-ST elevated myocardial infarction): Status: Acute Assessment and Plan: This is a 64-year-old male with a history of atrial fibrillation who presents the emergency department after syncopal then found to have atrial fibrillation with rapid ventricular response, NSTEMI NSTEMI Initial troponin 1149, repeat 266 continue heparin drip Aspirin, statin, beta-xavier Echocardiogram pending Lipid profile Cardiology consult Syncope Possibly secondary to a AFib with RVR Tele monitoring Echocardiogrampending AFib with RVR heart rate improving continue beta-xavier Cardiac monitoring Cardiology consult Elevated LFTs No abdominal pain Repeat LFTs DVT prophylaxis-heparin
[2020-10-21 15:23] LABS: PTT Heparin Drip 87.6 SEC (53-77.9)
--- NOTE | 2020-10-21 18:56 | P.CONCA_ITS ---
History of Present Illness History of Present Illness Date of Service: 10/21/20 Requesting physician: Danny Cordoba Chief complaint: NSTEMI Atrial fibrillation Syncope Narrative: 64-year-old gentleman who is here for syncope. He has background history of atrial fibrillation for which I saw him in the office few months back. He was clinically stable. He was sent for echocardiography which showed ejection fraction was 15-20% with severe global hypokinesis, mildly increased right ventricular cavity size and mildly decreased right ventricular systolic function, severe biatrial enlargement, moderate severe mitral valve regurgitation, moderate tricuspid valve regurgitation and significantly elevated right atrial pressures and mild dilation of ascending aorta. He lost to follow- up and did not come back for follow-up despite multiple phone calls and discussi on with his primary care physician. 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 He was on a ladder when he felt he is going to pass out and then blacked out and fell. After this he was brought to the emergency department. He was noticed to be in atrial fibrillation with rapid ventricular response. He denied chest pain or shortness of breath. He said occasionally feels shortness of breath and sometimes he gets orthopnea like episodes. He has some palpitations off and on but not all the time. He rarely drinks. He does not do any drugs. He does not smoke. I am reading in past history that he has hemochromatosis which I do not know details of right now. I do not show any recent blood workup. 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 Functional capacity: independent ambulation Family History Family History Father Lymphoma Mother Hemochromatosis Factor V Leiden Esophageal cancer Surgical History Surgical History Hx of vein stripping S/P left inguinal herniorrhaphy Social History Social History Household Members: Spouse Housing: House Do you presently have visiting nurse or other home services: No Alcohol intake: current Alcohol intake frequency: a few times a month Smoking Status: Never smoker Smoked in Last 30 Days: No Patient Interested in Nicotine Replacement: No Patient Given Instructions on How to Stop Smoking: No Second Hand Smoke Exposure: No Use of substances other than those prescribed or required for medical reasons: No Currently Displaying Signs/Symptoms of Drug Intoxication Withdrawal: No Any prior treatment program specific to substance use: No Have you been hit, kicked, punched, or otherwise hurt by someone within the past year? If so, by whom?: No Do you feel safe in your current relationship?: Yes Is there a partner from a previous relationship who is making you feel unsafe now?: No Are you made to feel afraid or neglected: No Advance Directives: No Advance Directives Information Provided: Yes Do you have thoughts of harming others: None Do you have a plan to hurt others: No Plan Recently lost weight without trying: No Meds Allergies Allergy/AdvReac Type Severity Reaction Status Date / Time amoxicillin [AMOXICILLIN] AdvReac Unknown STOMACH Verified 07/13/20 15:29 UPSET Home Medications Medication Instructions Recorded Confirmed Type No Known Home Meds 07/13/20 10/20/20 History Physical Exam Vital Signs: Vital Signs: Last Vital Signs Temp 98.3 F 10/21/20 15:31 Pulse 78 10/21/20 15:31 Resp 18 10/21/20 15:31 BP 104/67 10/21/20 15:31 Pulse Ox 98 10/21/20 15:31 Body Mass Index 29.7 GENERAL APPEARANCE: in no acute distress, well developed, well nourished. HEENT: unremarkable. HEAD: normocephalic, atraumatic. NECK/THYROID: no carotid bruit, no jugular venous distention. SKIN: no suspicious lesions, warm and dry. HEART: no murmurs, irregular rate and rhythm, S1, S2 normal. LUNGS: clear to auscultation bilaterally. ABDOMEN: normal, bowel sounds present, soft, nontender, nondistended. EXTREMITIES: no clubbing, cyanosis, or edema. PERIPHERAL PULSES: equal. NEUROLOGIC: nonfocal, alert and oriented. PSYCH: mood/affect full range. Results Labs and Meds Result diagrams: 10/21/20 05:57 10/21/20 05:57 Lab results: Laboratory Results - last 24 hr 10/21/20 10/21/20 10/21/20 05:57 05:57 07:33 WBC 7.4 RBC 4.37 L Hgb 13.9 L Hct 40.4 L MCV 92.4 MCH 31.8 MCHC 34.4 RDW 12.1 Plt Count 135 L MPV 10.3 Immature Gran % (Auto) 0.3 Neut % (Auto) 67.8 Lymph % (Auto) 18.0 L [place] % (Auto) 11.3 H Eos % (Auto) 1.8 Baso % (Auto) 0.8 Lymph # (Auto) 1.3 [place] # (Auto) 0.8 Eos # (Auto) 0.1 Baso # (Auto) 0.1 Abs Immat Gran (auto) 0.02 Absolute Neuts (auto) 5.0 Absolute Nucleated RBC 0.000 Nucleated RBC % (auto) 0.0 Smear Tech's Comments VERIFIED PTT (Heparin Protocol) 51.6 L Sodium 136 Potassium 4.3 Chloride 102 Carbon Dioxide 26 Anion Gap 12 BUN 16 Creatinine 0.74 Estim Creat Clear Calc 131.9 Estimated GFR > 60 Random Glucose 97 Calcium 8.3 L Total Bilirubin 4.7 H Direct Bilirubin 0.5 AST 75 H ALT 76 H Alkaline Phosphatase 66 Total Protein 6.0 L Albumin 3.9 Triglycerides 66 Cholesterol 146 LDL Cholesterol, Calc 82 HDL Cholesterol 51 10/21/20 14:20 WBC RBC Hgb Hct MCV MCH MCHC RDW Plt Count MPV Immature Gran % (Auto) Neut % (Auto) Lymph % (Auto) [place] % (Auto) Eos % (Auto) Baso % (Auto) Lymph # (Auto) [place] # (Auto) Eos # (Auto) Baso # (Auto) Abs Immat Gran (auto) Absolute Neuts (auto) Absolute Nucleated RBC Nucleated RBC % (auto) Smear Tech's Comments PTT (Heparin Protocol) 87.6 H D Sodium Potassium Chloride Carbon Dioxide Anion Gap BUN Creatinine Estim Creat Clear Calc Estimated GFR Random Glucose Calcium Total Bilirubin Direct Bilirubin AST ALT Alkaline Phosphatase Total Protein Albumin Triglycerides Cholesterol LDL Cholesterol, Calc HDL Cholesterol Assessment and Plan (1) NSTEMI (non-ST elevated myocardial infarction): Status: Acute (2) Syncope: Qualifiers: Syncope type: unspecified Qualified Code(s): R55 - Syncope and collapse Status: Acute (3) Atrial fibrillation with rapid ventricular response: Status: Acute (4) Cardiomyopathy: Status: Acute 64-year-old gentleman who is presenting with syncope. He has background history of atrial fibrillation and had echocardiography in July which showed severe but LV dysfunction with moderate severe mitral regurgitation and mild right ventricular dysfunction. He lost to follow-up in the clinic and has not come back to the clinic since then. While working he developed some dizziness and passed out. He came and his cardiac enzymes were abnormal. He had no chest pain or shortness of breath. He was in atrial fibrillation with rapid ventricular response. Rate control is okay on metoprolol. I think he can tolerate for more metoprolol and he can be changed to 50 mg twice a day. If his rates are still not controlled on digoxin can be tried. I had a detailed discussion with the patient about the seriousness of his situation. He was in favor of going home but he has agreed to stay and try medications. I think he does not need IV diuretics as he is clinically compensated. I think will try to do a FREEDOM cardioversion on him on Friday. If in fact we can break atrial fibrillation then possibilities will be to put him on amiodarone short-term to see his cardiomyopathy improves. He does not have any significant dyspnea or chest discomfort to suggest coronary disease but I think he will require cardiac catheterization at some stage. I think his syncope is likely ventricular tachycardia or VFib. He has severe cardiomyopathy and that is the likely cause for him passing out. Once cardioverted he may require a Zoll vest. BP soft and he may not be able tolerate multiple neural hormonal medications. We will follow along with you. Thank you for allowing me to participate in the care of your patient. Please feel free to contact me if you have any questions.
--- NOTE | 2020-10-21 19:43 | PC.NURSE ---
pt alert, oriented and very pleasant. Afebrile. BP staple HR 80-110s at rest. in a fib at this time HR goes up to 120s with any exertion HR did go up to the 160s when pt is OOB walking - cardio aware In all situations pt is not feeling any chest pain/pressure/palpitations/heart racing in any way. No SOB, no edema. Pt states he does occasionally get SOB or sometimes at home has felt like his heart was racing when lying flat in the middle of the night but there is no pattern and has not happened here. Pt remains on hep drip PTTHD q6hr and titrating appropriately per protocol. Echo ordered at this time Cardio closely following Lungs remain clear. Skin intact besides some bruise/scab on his face r/t his recent fall. NO dizziness/headache Only reported pain was some back pain possibily related to the fall per pt. Offered pt hot or ice packs or prn tylenol - pt refused a this time but stated would ask if he wanted any of those items. Supervising pt to bathroom because of recent fall- pt remains steady on his feet at this time. High fall risk measures remain in place.
[2020-10-21] MEDS: Atorvastatin Calcium 80 MG TABLET PO (21:26)
[2020-10-21 22:27] LABS: PTT Heparin Drip 49.9 SEC (53-77.9)
[2020-10-22] VITALS (8 sets, daily range): BP systolic 103–125; BP diastolic 73–94; PULSE 68–132; RESP 18–20; TEMP 36.4–37; O2SAT 95–98
[2020-10-22] MEDS: Heparin Sodium,Porcine/1/2NS 25,000 UNIT/250 ML IV.SOLN 10.5 UNIT IVCONT (00:35)
[2020-10-22 04:20] LABS: PTT Heparin Drip 95.5 SEC (53-77.9)
--- NOTE | 2020-10-22 07:45 | US_ITS ---
EXAMINATION: US ABDOMEN LIMITED CLINICAL INFORMATION: Elevated LFTs evaluate for CBD stones. COMPARISON: None TECHNIQUE: Real-time imaging of the right upper quadrant abdominal viscera. FINDINGS: PANCREAS: Normal. LIVER: The liver is normal in size. The liver contour is normal. Parenchymal echogenicity is normal. No focal hepatic lesion. There is no intrahepatic biliary duct dilatation seen. GALLBLADDER: Normal. The gallbladder is physiologically distended without evidence of stones, sludge, polyps, wall thickening or pericholecystic fluid. Sonographic Gaffney sign is negative. COMMON BILE DUCT: Normal in caliber measuring 0.3 cm in diameter. RIGHT KIDNEY: No hydronephrosis. No renal calculi or focal parenchymal lesions. The kidney measures 13.1 cm in maximum dimension. In the interpolar region there are 2 cysts noted measuring 1.2 x 1.2 x 1.4 cm and 0.8 x 0.9 x 0.8 cm. FREE FLUID: Trace free fluid noted adjacent to the right hepatic lobe US/US abdomen limited IMPRESSION: 1. No cholelithiasis or sonographic evidence of acute cholecystitis. 2. Trace free fluid noted adjacent to the right hepatic lobe. 3. Right renal interpolar cysts, the largest measuring up to 1.4 cm.
[2020-10-22 08:01] LABS: Ferritin 809 ng/mL (20-250)
[2020-10-22] MEDS: Metoprolol Tartrate 25 MG TABLET PO (09:08)
[2020-10-22] MEDS: Aspirin Enteric Coated 81 MG TABLET.DR PO (09:08)
--- NOTE | 2020-10-22 13:58 | HO.PM.IMPN ---
Subjective Subjective Date of Service: 10/22/20 Interval History: Patient is sitting comfortably offers no acute complaints other than chest and back pain with sneezing, no overnight acute issues. Review of Systems General no headache, no dizziness no fever chills. CVS no chest pain, no palpitation. Respiratory no cough, no sputum production, no respiratory distress. Gastrointestinal no nausea, no vomiting, no abdominal pain Musculoskeletal back and chest pain with sneezing Physical Exam Vital Signs: Vital Signs: Last Vital Signs Temp 97.6 F 10/22/20 12:00 Pulse 73 10/22/20 12:00 Resp 18 10/22/20 12:00 BP 111/80 10/22/20 12:00 Pulse Ox 98 10/22/20 12:00 Body Mass Index 29.7 Const: Other: General patient resting comfortably in no acute distress. Neck is supple no JVD. CVS iregular rate rhythm, Respiratory lungs clear to auscultation, no respiratory distress. Gastrointestinal abdomen soft, nontender, bowel sounds audible Extremities no clubbing cyanosis or edema. Neuro nonfocal , speech clear. Skin no rash Objective Data Current Medications Generic Name Dose Route Start Last Admin Trade Name Freq PRN Reason Stop Dose Admin Acetaminophen 650 mg 10/20/20 18:23 Acetaminophen 325 Mg Tablet PO Q6H PRN Pain, Mild (Pain Scale 1-3) Apixaban 5 mg 10/22/20 21:00 Apixaban 5 Mg Tablet PO BID [facility] Atorvastatin Calcium 80 mg 10/20/20 21:00 10/21/20 21:26 Atorvastatin Calcium 80 Mg Tablet PO 80 mg BEDTIME [facility] Administration Docusate Sodium 100 mg 10/20/20 18:23 Docusate Sodium 100 Mg Capsule PO DAILY PRN Constipation Metoprolol Tartrate 50 mg 10/22/20 21:00 Metoprolol Tartrate 25 Mg Tablet PO BID [facility] Protocol Sodium Chloride 3 ml 10/21/20 00:00 10/22/20 09:01 0.9 % Sodium Chloride Flush 3 Ml Syringe IVFLUSH Not Given QSHIFT [facility] Labs CBC & Chem 7: 10/21/20 05:57 10/21/20 05:57 Assessment and Plan (1) Syncope: Status: Acute (2) Atrial fibrillation with rapid ventricular response: Status: Acute (3) NSTEMI (non-ST elevated myocardial infarction): Status: Acute Assessment and Plan: This is a 64-year-old male with a history of atrial fibrillation who presents the emergency department after syncopal then found to have atrial fibrillation with rapid ventricular response, NSTEMI Elevated troponin, patient seen by Cardiology since patient had no chest discomfort or shortness of breath, Cardiology feel elevated troponin is related to atrial fibrillation with rapid ventricular rate Will discontinue IV heparin drip, Initial troponin 1149, repeat 266 Echocardiogram showed EF 15-20,, severe biatrial enlargement, moderate to severe mitral valve regurgitation, moderate tricuspid valve with regurgitation, significantly elevated right atrial pressure Patient will need outpatient cardiac catheterization. Syncope/cardiomyopathy Possibly secondary to ventricular tachycardia or VFib since he has severe cardiomyopathy, patient is scheduled for cardioversion tomorrow, will need outpatient cardiac catheterization to assess for ischemia, continue tele monitor, and adjust medication Elevated ferritin of 809, normal MCV will obtain iron saturation to rule out hemochromatosis. AFib with RVR heart rate improving,continue beta-xavier, will add Eliquis Elevated LFTs Total bili trending up but liver enzymes are stable, No abdominal pain Await abdominal ultrasound report, follow LFTs DVT prophylaxis-heparin
--- NOTE | 2020-10-22 15:42 | MHC.CM.PN ---
PT REPORTS HE LIVES AT HOME WITH HIS AND IS INDEPENDENT WITH CARE AND MOBILITY. PT REPORTS HE HAS A CANE THAT HE DOES NOT USE AT BASELINE BUT HAS BEEN USING RECENTLY. PT DOES NOT HAVE A HCP AND DOES NOT WANT TO COMPLETE ONE TODAY BUT DID TAKE A BLANK ONE TO CONSIDER. PTS CURRENT DC PLAN IS HOME WITH NO SERVICES PT WILL SELF ARRANGE TRANSPORT
[2020-10-22] MEDS: 0.9 % Sodium Chloride Flush 3 ML SYRINGE IVFLUSH ×2 (18:17→20:51)
[2020-10-22] MEDS: Metoprolol Tartrate 25 MG TABLET 50 MG PO (20:42)
[2020-10-22] MEDS: Apixaban 5 MG TABLET PO (20:42)
[2020-10-23] VITALS (13 sets, daily range): BP systolic 94–129; BP diastolic 61–99; PULSE 59–108; RESP 14–18; TEMP 36.2–36.9; O2SAT 96–98
[2020-10-23 07:33] LABS: Alanine Aminotransferase 51 U/L (0-40); Albumin Level 3.7 g/dL (3.5-5.0); Alkaline Phosphatase 68 U/L (39-117); Anion Gap 14 (12-20); Aspartate Amino Transferase 40 U/L (5-37); Bilirubin Direct 0.5 mg/dL (0.0-0.5); Bilirubin Total 3.2 mg/dL (0.0-1.0); Blood Urea Nitrogen 17 mg/dL (9-16); Calcium 8.4 mg/dL (8.4-10.2); Carbon Dioxide 25 mmol/L (22-29); Chloride 103 mmol/L (96-108); Creatinine Clr Calc Pharmacy 126.8; Estimated Glomerular Filt Rate > 60; Glucose Random 94 mg/dL (60-115); Iron 97 mcg/dL (45-160); Percent Iron Saturation 37 % (15-50); Potassium 4.7 mmol/l (3.3-5.1); Sodium 137 mmol/L (135-145); Total Iron Binding Capacity 265 mcg/dL (228-428); Total Protein 5.9 g/dL (6.5-8.0); Unsaturated Iron Binding 168 ug/dL
[2020-10-23] MEDS: 0.9 % Sodium Chloride Flush 3 ML SYRINGE IVFLUSH ×2 (08:27→16:12)
[2020-10-23] MEDS: Metoprolol Tartrate 25 MG TABLET 50 MG PO (08:27)
[2020-10-23] MEDS: Apixaban 5 MG TABLET PO ×2 (08:27→20:57)
--- NOTE | 2020-10-23 09:58 | PM.PNCARD ---
Subjective Subjective Date of Service: 10/23/20 Principal diagnosis: Atrial fibrillation, cardiomyopathy Interval history: Patient is denying any significant complaints at this time. No palpitations. Heart rate is better controlled than on admission. Still in the 90-100 range. No significant ventricular arrhythmias Review of Systems Cardiovascular: Reports irregular heart rhythm, Reports palpitations and Reports orthopnea (Occasionally at home) Respiratory: Reports no additional respiratory complaints Gastrointestinal: Reports no additional gastrointestinal complaints Reports system reviewed and no additional complaints, except as documented Psychiatric: Reports no additional psychiatric complaints Endocrine: Reports no additional endocrine complaints and Reports palpitations Physical Exam Vital Signs: Last Vital Signs Temp 98.3 F 10/23/20 08:00 Pulse 88 10/23/20 08:27 Resp 18 10/23/20 08:00 BP 125/90 H 10/23/20 08:27 Pulse Ox 97 10/23/20 08:00 Body Mass Index 29.7 Const General: cooperative, alert and awake Nutritional Appearance: average body habitus Orientation/consciousness: patient oriented x3 Limitations: no limitations HENMT Head: Yes normocephalic and Yes atraumatic Neck Neck: Yes trachea midline, Yes supple and Yes no JVD Chest Chest palpation & inspection: normal inspection of the chest Resp Effort & Inspection: normal respiratory effort Auscultation: clear to auscultation bilaterally Cardio Palpation: abnormal PMI displaced PMI Rhythm: abnormal rhythm irregularly irregular Heart sounds: S1 normal heart sound present, S2 normal heart sound present and Murmur heart sound present Skin General skin exam: no rashes or lesions noted Neuro General: patient oriented x3 Extrem General: Yes no clubbing, cyanosis or edema Results Labs and Meds Result diagrams: 10/21/20 05:57 10/23/20 05:34 Lab results: Laboratory Results - last 24 hr 10/23/20 05:34 Sodium 137 Potassium 4.7 Chloride 103 Carbon Dioxide 25 Anion Gap 14 BUN 17 H Creatinine 0.77 Estim Creat Clear Calc 126.8 Estimated GFR > 60 Random Glucose 94 Calcium 8.4 Iron 97 TIBC 265 % Saturation 37 Unsat Iron Binding 168 Total Bilirubin 3.2 H Direct Bilirubin 0.5 AST 40 H D ALT 51 H Alkaline Phosphatase 68 Total Protein 5.9 L Albumin 3.7 Progress Note: A&P Assessment and plan (1) Syncope: Status: Acute Assessment and Plan: Syncope of unclear etiology. Given his severe LV systolic dysfunction ventricular arrhythmias highly likely. There is no evidence of any ventricular arrhythmias on cardiac telemetry at this point in time. On discharge will need external vest defibrillator to prevent sudden cardiac that. This was discussed with him. He understands and agrees. (2) Cardiomyopathy: Status: Acute Assessment and Plan: Cardiomyopathy by echocardiogram in July. He does have some symptoms related to cardiomyopathy but without any symptoms of overt heart failure. Possible related to tachycardia mediated cardiomyopathy due to uncontrolled atrial fibrillation. This was discussed with him. Other etiologies including ischemic etiology will need to be eventually ruled out. Will perform a FREEDOM guided cardioversion for better rate control later today if possible. Will add valsartan to his regimen for neurohormonal modulation. Continue metoprolol as well for neurohormonal modulation. Signs and symptoms of heart failure were discussed. (3) Atrial fibrillation with rapid ventricular response: Status: Acute Assessment and Plan: Atrial fibrillation with borderline rate control. Will up titrate metoprolol to 50 mg 3 times a day. Continue Eliquis therapy. Given his significant biatrial enlargement possible that atrial fibrillation is longer lasting than suspected. This was discussed in. He says he does have sleep apnea symptoms at home will need sleep study as an outpatient. Will try to achieve rhythm control approach as soon as possible. Discussed about FREEDOM guided cardioversion today. We discussed risks, benefits, alternatives 2nd opinion to the procedure. He understands and agrees any is planned for later today. Once cardioverted if he successfully cardioverted today. Will start him on amiodarone therapy for rhythm control as outpatient given his significant biatrial enlargement while V pursue outpatient workup. This was discussed with him as well. He understands and agrees. Will follow with the patient. Fall Risk Details Current Medications: Current Medications Generic Name Dose Route Start Last Admin Trade Name Freq PRN Reason Stop Dose Admin Acetaminophen 650 mg 10/20/20 18:23 Acetaminophen 325 Mg Tablet PO Q6H PRN Pain, Mild (Pain Scale 1-3) Apixaban 5 mg 10/22/20 21:00 10/23/20 08:27 Apixaban 5 Mg Tablet PO 5 mg BID [facility] Administration Docusate Sodium 100 mg 10/20/20 18:23 Docusate Sodium 100 Mg Capsule PO DAILY PRN Constipation Metoprolol Tartrate 50 mg 10/23/20 15:00 Metoprolol Tartrate 25 Mg Tablet PO TID [facility] Protocol Sodium Chloride 3 ml 10/21/20 00:00 10/23/20 08:27 0.9 % Sodium Chloride Flush 3 Ml Syringe IVFLUSH 3 ml QSHIFT [facility] Administration Time Spent With Patient Time: Total time spent is greater than 50% in coordination of care (as documented) at patient's floor/unit and/or counseling patient: Time with patient: 25 - 35 minutes
--- NOTE | 2020-10-23 10:06 | CA_ITS ---
Transesophageal Echocardiogram Patient (Last, First, Middle): Huber Keys R Gender: Male Date of : 1955 Age: 64 Procedure Date: 10/23/2020 Procedure Type: Transesophageal Echocardiogram [place] [facility] [place]: 170.18 cm Weight: kg [place] Operator: FELY Referring MD: Rk Shipman MD Symptoms: AFIB, Pre cardioversion Conclusion: ??? 1. Mildly dilated LV with severe LV systolic dysfunction with LVEF of 15-20% 2. No intracardiac thrombi, masses or vegetations 3. Moderate biatrial enlargement 4. [id number] mitral regurgitation 5. No gross pericardial effusion 6. No significant atherosclerosis in the aorta Findings Procedure Information Consent was obtained prior to the procedure. Pre FREEDOM oral cavity was checked and revealed no overcrowding. The adult 3D probe was passed with no difficulty. Left Ventricle Mildly increased left ventricular cavity size. The visually estimated ejection fraction is between 15-20%. There is severe global hypokinesis. Diastolic function is indeterminate on the basis of available data. Right Ventricle Normal right ventricular cavity size and systolic function. Atria There is no evidence of interatrial shunt. Moderate left atrial enlargement. There are no clots seen in the left atrial cavity. Left atrial appendage was identified in multiple view. There are no clots seen within left atrial appendage cavity. There is smoke formation seen within left atrium. The left atrial appendage ejection velocity significantly reduce consistent with atrial stunning. The left upper, right upper and right lower pulmonary vein drain normally into the left atrium. right atrium also appears to be at least moderately enlarged. The IVC and SVC drain normally into the right atrium. There are no clots seen with the right atrial cavity. Aortic Valve Normal aortic valve structure and function. There is no aortic valve stenosis. There is trace (trivial) aortic valve regurgitation. Mitral Valve There is mild anterior and posterior mitral leaflet thickening. There is mild to moderate mitral valve regurgitation. There is no mitral valve stenosis. During the initial phase of the FREEDOM, when patient was slightly tachycardic appeared the mitral regurgitation was moderate in severity. However after complete sedation the severity reduced to [id number] range. Pulmonic Valve The pulmonic valve is normal. Tricuspid Valve Normal tricuspid valve structure. There is mild tricuspid valve regurgitation. The right ventricular systolic pressure is not calculated. Great Vessels All visible segments of the aorta are normal in size. The pulmonary artery was not well visualized. Venous The inferior vena cava is normal in size. Pericardium/Pleural There is no evidence of pericardial effusion. Updated by Rk Shipman on 05:10 PM with Status of Final Rk Shipman MD electronically signed on 10/23/2020 5:10:59 PM with status of Final
[2020-10-23] MEDS: Valsartan 40 MG TABLET PO ×2 (10:29→20:57)
--- NOTE | 2020-10-23 11:10 | MHC.CM.PN ---
Patient will have Cardioversion today. Home w/o services is the goal for dc and CM will continue to follow for dc planning and the possible need to adjust the dc plan.
--- NOTE | 2020-10-23 11:15 | HO.ANESPROP2 ---
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 Severe left ventricular systolic dysfunction Varicose veins of left lower extremity Functional capacity: independent ambulation Family History Family History Father Lymphoma Mother Hemochromatosis Factor V Leiden Esophageal cancer Surgical History Surgical History Hx of vein stripping S/P left inguinal herniorrhaphy Social History Social History Household Members: Spouse Housing: House Do you presently have visiting nurse or other home services: No Alcohol intake: current Alcohol intake frequency: a few times a month Smoking Status: Never smoker Smoked in Last 30 Days: No Patient Interested in Nicotine Replacement: No Patient Given Instructions on How to Stop Smoking: No Second Hand Smoke Exposure: No Use of substances other than those prescribed or required for medical reasons: No Currently Displaying Signs/Symptoms of Drug Intoxication Withdrawal: No Any prior treatment program specific to substance use: No Have you been hit, kicked, punched, or otherwise hurt by someone within the past year? If so, by whom?: No Do you feel safe in your current relationship?: Yes Is there a partner from a previous relationship who is making you feel unsafe now?: No Are you made to feel afraid or neglected: No Advance Directives: No Advance Directives Information Provided: Yes Do you have thoughts of harming others: None Do you have a plan to hurt others: No Plan Recently lost weight without trying: No service: No Current occupational status: employed Meds Allergies Allergy/AdvReac Type Severity Reaction Status Date / Time amoxicillin [AMOXICILLIN] AdvReac Unknown STOMACH Verified 10/23/20 11:08 UPSET Home Medications Medication Instructions Recorded Confirmed Type No Known Home Meds 07/13/20 10/20/20 History Exam Exam Date and Time: October 23, 2020 1115 Height,Weight and Vital Signs: Height 6 ft 2 in Weight 105 kg Last Vital Signs Temp 98.0 F 10/23/20 10:58 Pulse 108 H 10/23/20 10:58 Resp 18 10/23/20 10:58 BP 129/99 H 10/23/20 10:58 Pulse Ox 97 10/23/20 10:58 Pertinent Lab Results Pertinent Lab Results: Laboratory Tests 10/19/20 10/19/20 10/19/20 20:04 20:04 20:04 WBC 10.0 RBC 4.57 L Hgb 14.9 Hct 42.4 MCV 92.8 MCH 32.6 MCHC 35.1 RDW 12.6 Plt Count 146 L MPV 9.7 Immature Gran % (Auto) 0.2 Neut % (Auto) 86.0 H Lymph % (Auto) 6.6 L [place] % (Auto) 6.8 Eos % (Auto) 0.1 Baso % (Auto) 0.3 Lymph # (Auto) 0.7 L [place] # (Auto) 0.7 Eos # (Auto) 0.0 Baso # (Auto) 0.0 Abs Immat Gran (auto) 0.02 Absolute Neuts (auto) 8.6 H Absolute Nucleated RBC 0.000 Nucleated RBC % (auto) 0.0 Smear Tech's Comments PT 14.1 H INR 1.2 H APTT 35.2 PTT (Heparin Protocol) Sodium Potassium Chloride Carbon Dioxide Anion Gap BUN Creatinine Estim Creat Clear Calc Estimated GFR Random Glucose Calcium Iron TIBC % Saturation Unsat Iron Binding Ferritin Total Bilirubin Direct Bilirubin AST ALT Alkaline Phosphatase Troponin I High Sens 1149.7 H Total Protein Albumin Triglycerides Cholesterol LDL Cholesterol, Calc HDL Cholesterol Urine Color Urine Appearance Urine pH Ur Specific [place] Urine Protein Urine Glucose (UA) Urine Ketones Urine Blood Urine Nitrite Ur Leukocyte Esterase Urine RBC Urine WBC Ur Squamous Epith Cells Urine Bacteria COVID-19 ([facility]) COVID-19 Clin Com 10/19/20 10/20/20 10/20/20 20:04 00:30 03:42 WBC 8.5 RBC 4.31 L Hgb 13.8 L Hct 39.9 L MCV 92.6 MCH 32.0 MCHC 34.6 RDW 12.5 Plt Count 136 L MPV 10.2 Immature Gran % (Auto) Neut % (Auto) Lymph % (Auto) [place] % (Auto) Eos % (Auto) Baso % (Auto) Lymph # (Auto) [place] # (Auto) Eos # (Auto) Baso # (Auto) Abs Immat Gran (auto) Absolute Neuts (auto) Absolute Nucleated RBC 0.000 Nucleated RBC % (auto) 0.0 Smear Tech's Comments PT INR APTT PTT (Heparin Protocol) Sodium 136 Potassium 4.2 Chloride 102 Carbon Dioxide 25 Anion Gap 13 BUN 20 H Creatinine 0.91 Estim Creat Clear Calc 107.3 Estimated GFR > 60 Random Glucose 129 H Calcium 8.5 Iron TIBC % Saturation Unsat Iron Binding Ferritin Total Bilirubin 3.3 H Direct Bilirubin 0.7 H AST 91 H ALT 81 H Alkaline Phosphatase 75 Troponin I High Sens Total Protein 6.8 Albumin 4.5 Triglycerides Cholesterol LDL Cholesterol, Calc HDL Cholesterol Urine Color YELLOW Urine Appearance CLEAR Urine pH 6.5 Ur Specific [place] 1.020 Urine Protein NEG Urine Glucose (UA) NEG Urine Ketones NEG Urine Blood 3+ H Urine Nitrite NEG Ur Leukocyte Esterase NEG Urine RBC 15-29 H Urine WBC 1-4 Ur Squamous Epith Cells 1+ Urine Bacteria 1+ COVID-19 ([facility]IE) COVID-19 [employer] 10/20/20 10/20/20 10/20/20 03:42 03:42 09:35 WBC RBC Hgb Hct MCV MCH MCHC RDW Plt Count MPV Immature Gran % (Auto) Neut % (Auto) Lymph % (Auto) [place] % (Auto) Eos % (Auto) Baso % (Auto) Lymph # (Auto) [place] # (Auto) Eos # (Auto) Baso # (Auto) Abs Immat Gran (auto) Absolute Neuts (auto) Absolute Nucleated RBC Nucleated RBC % (auto) Smear Tech's Comments PT Cancelled 15.6 H INR Cancelled 1.3 H APTT PTT (Heparin Protocol) 88.7 H 66.7 D Sodium Potassium Chloride Carbon Dioxide Anion Gap BUN Creatinine Estim Creat Clear Calc Estimated GFR Random Glucose Calcium Iron TIBC % Saturation Unsat Iron Binding Ferritin Total Bilirubin Direct Bilirubin AST ALT Alkaline Phosphatase Troponin I High Sens Total Protein Albumin Triglycerides Cholesterol LDL Cholesterol, Calc HDL Cholesterol Urine Color Urine Appearance Urine pH Ur Specific [place] Urine Protein Urine Glucose (UA) Urine Ketones Urine Blood Urine Nitrite Ur Leukocyte Esterase Urine RBC Urine WBC Ur Squamous Epith Cells Urine Bacteria COVID-19 ([facility]) COVID-19 Clin Com 10/20/20 10/20/20 10/20/20 16:24 16:24 16:44 WBC RBC Hgb Hct MCV MCH MCHC RDW Plt Count MPV Immature Gran % (Auto) Neut % (Auto) Lymph % (Auto) [place] % (Auto) Eos % (Auto) Baso % (Auto) Lymph # (Auto) [place] # (Auto) Eos # (Auto) Baso # (Auto) Abs Immat Gran (auto) Absolute Neuts (auto) Absolute Nucleated RBC Nucleated RBC % (auto) Smear Tech's Comments PT INR APTT PTT (Heparin Protocol) 60.2 Sodium Potassium Chloride Carbon Dioxide Anion Gap BUN Creatinine Estim Creat Clear Calc Estimated GFR Random Glucose Calcium Iron TIBC % Saturation Unsat Iron Binding Ferritin Total Bilirubin Direct Bilirubin AST ALT Alkaline Phosphatase Troponin I High Sens 266.7 H D Total Protein Albumin Triglycerides Cholesterol LDL Cholesterol, Calc HDL Cholesterol Urine Color Urine Appearance Urine pH Ur Specific [place] Urine Protein Urine Glucose (UA) Urine Ketones Urine Blood Urine Nitrite Ur Leukocyte Esterase Urine RBC Urine WBC Ur Squamous Epith Cells Urine Bacteria COVID-19 ([facility]) Negative COVID-19 Clin Com See Note 10/21/20 10/21/20 10/21/20 05:57 05:57 07:33 WBC 7.4 RBC 4.37 L Hgb 13.9 L Hct 40.4 L MCV 92.4 MCH 31.8 MCHC 34.4 RDW 12.1 Plt Count 135 L MPV 10.3 Immature Gran % (Auto) 0.3 Neut % (Auto) 67.8 Lymph % (Auto) 18.0 L [place] % (Auto) 11.3 H Eos % (Auto) 1.8 Baso % (Auto) 0.8 Lymph # (Auto) 1.3 [place] # (Auto) 0.8 Eos # (Auto) 0.1 Baso # (Auto) 0.1 Abs Immat Gran (auto) 0.02 Absolute Neuts (auto) 5.0 Absolute Nucleated RBC 0.000 Nucleated RBC % (auto) 0.0 Smear Tech's Comments VERIFIED PT INR APTT PTT (Heparin Protocol) 51.6 L Sodium 136 Potassium 4.3 Chloride 102 Carbon Dioxide 26 Anion Gap 12 BUN 16 Creatinine 0.74 Estim Creat Clear Calc 131.9 Estimated GFR > 60 Random Glucose 97 Calcium 8.3 L Iron TIBC % Saturation Unsat Iron Binding Ferritin Total Bilirubin 4.7 H Direct Bilirubin 0.5 AST 75 H ALT 76 H Alkaline Phosphatase 66 Troponin I High Sens Total Protein 6.0 L Albumin 3.9 Triglycerides 66 Cholesterol 146 LDL Cholesterol, Calc 82 HDL Cholesterol 51 Urine Color Urine Appearance Urine pH Ur Specific [place] Urine Protein Urine Glucose (UA) Urine Ketones Urine Blood Urine Nitrite Ur Leukocyte Esterase Urine RBC Urine WBC Ur Squamous Epith Cells Urine Bacteria COVID-19 ([facility]) COVID-19 Clin Com 10/21/20 10/21/20 10/22/20 14:20 22:08 04:01 WBC RBC Hgb Hct MCV MCH MCHC RDW Plt Count MPV Immature Gran % (Auto) Neut % (Auto) Lymph % (Auto) [place] % (Auto) Eos % (Auto) Baso % (Auto) Lymph # (Auto) [place] # (Auto) Eos # (Auto) Baso # (Auto) Abs Immat Gran (auto) Absolute Neuts (auto) Absolute Nucleated RBC Nucleated RBC % (auto) Smear Tech's Comments PT INR APTT PTT (Heparin Protocol) 87.6 H D 49.9 L D 95.5 H D Sodium Potassium Chloride Carbon Dioxide Anion Gap BUN Creatinine Estim Creat Clear Calc Estimated GFR Random Glucose Calcium Iron TIBC % Saturation Unsat Iron Binding Ferritin Total Bilirubin Direct Bilirubin AST ALT Alkaline Phosphatase Troponin I High Sens Total Protein Albumin Triglycerides Cholesterol LDL Cholesterol, Calc HDL Cholesterol Urine Color Urine Appearance Urine pH Ur Specific [place] Urine Protein Urine Glucose (UA) Urine Ketones Urine Blood Urine Nitrite Ur Leukocyte Esterase Urine RBC Urine WBC Ur Squamous Epith Cells Urine Bacteria COVID-19 ([facility]) COVID-19 Clin Com 10/22/20 10/23/20 06:02 05:34 WBC RBC Hgb Hct MCV MCH MCHC RDW Plt Count MPV Immature Gran % (Auto) Neut % (Auto) Lymph % (Auto) [place] % (Auto) Eos % (Auto) Baso % (Auto) Lymph # (Auto) [place] # (Auto) Eos # (Auto) Baso # (Auto) Abs Immat Gran (auto) Absolute Neuts (auto) Absolute Nucleated RBC Nucleated RBC % (auto) Smear Tech's Comments PT INR APTT PTT (Heparin Protocol) Sodium 137 Potassium 4.7 Chloride 103 Carbon Dioxide 25 Anion Gap 14 BUN 17 H Creatinine 0.77 Estim Creat Clear Calc 126.8 Estimated GFR > 60 Random Glucose 94 Calcium 8.4 Iron 97 TIBC 265 % Saturation 37 Unsat Iron Binding 168 Ferritin 809 H Total Bilirubin 3.2 H Direct Bilirubin 0.5 AST 40 H D ALT 51 H Alkaline Phosphatase 68 Troponin I High Sens Total Protein 5.9 L Albumin 3.7 Triglycerides Cholesterol LDL Cholesterol, Calc HDL Cholesterol Urine Color Urine Appearance Urine pH Ur Specific [place] Urine Protein Urine Glucose (UA) Urine Ketones Urine Blood Urine Nitrite Ur Leukocyte Esterase Urine RBC Urine WBC Ur Squamous Epith Cells Urine Bacteria COVID-19 ([facility]) COVID-19 Clin Com
[2020-10-23] MEDS: Lactated Ringers 1,000 ML 50 ML IVCONT (11:24)
--- NOTE | 2020-10-23 11:26 | HO.PM.IMPN ---
Subjective Subjective Date of Service: 10/23/20 Interval History: Patient being followed for atrial fibrillation RVR and syncope patient offers no acute complaints is NPO for cardioversion this morning no overnight abnormal rhythm on tele monitor. Review of Systems General no headache, no dizziness, no fever, chills. CVS no chest pain, no palpitation. Respiratory no cough, no sputum production, no respiratory distress. Gastrointestinal no nausea, no vomiting, no abdominal pain Physical Exam Vital Signs: Vital Signs: Last Vital Signs Temp 98.0 F 10/23/20 10:58 Pulse 108 H 10/23/20 10:58 Resp 18 10/23/20 10:58 BP 129/99 H 10/23/20 10:58 Pulse Ox 97 10/23/20 10:58 Body Mass Index 29.7 Const: Other: General no acute distress. Neck is supple no JVD. CVS irregular rate rhythm, Respiratory lungs clear to auscultation, no respiratory distress Gastrointestinal abdomen soft, nontender, bowel sounds audible, Extremities no clubbing cyanosis or edema. Neuro nonfocal . Skin no rash Objective Data Current Medications Generic Name Dose Route Start Last Admin Trade Name Freq PRN Reason Stop Dose Admin Acetaminophen 650 mg 10/20/20 18:23 Acetaminophen 325 Mg Tablet PO Q6H PRN Pain, Mild (Pain Scale 1-3) Apixaban 5 mg 10/22/20 21:00 10/23/20 08:27 Apixaban 5 Mg Tablet PO 5 mg BID RUBI Administration Docusate Sodium 100 mg 10/20/20 18:23 Docusate Sodium 100 Mg Capsule PO DAILY PRN Constipation Lactated Ringer's 1,000 mls @ 50 mls/hr 10/23/20 11:30 10/23/20 11:24 Lr IVCONT 50 mls/hr .Q20H RUBI Administration Metoprolol Tartrate 50 mg 10/23/20 15:00 Metoprolol Tartrate 50 Mg Tablet PO TID RUBI Protocol Sodium Chloride 3 ml 10/21/20 00:00 10/23/20 08:27 0.9 % Sodium Chloride Flush 3 Ml Syringe IVFLUSH 3 ml QSHIFT RUBI Administration Valsartan 40 mg 10/23/20 10:05 10/23/20 10:29 Valsartan 40 Mg Tablet PO 40 mg BID RUBI Administration Protocol Labs CBC & Chem 7: 10/21/20 05:57 10/23/20 05:34 Assessment and Plan (1) Syncope: Status: Acute (2) Atrial fibrillation with rapid ventricular response: Status: Acute (3) NSTEMI (non-ST elevated myocardial infarction): Status: Acute Assessment and Plan: This is a 64-year-old male with a history of atrial fibrillation who presents the emergency department after syncopal then found to have atrial fibrillation with rapid ventricular response, NSTEMI Elevated troponin, likely due to atrial fibrillation and rapid ventricular rate, no chest pain no shortness of breath troponin 1149, repeat 266 Echocardiogram showed EF 15-20,, severe biatrial enlargement, moderate to severe mitral valve regurgitation, moderate tricuspid valve with regurgitation, significantly elevated right atrial pressure Patient will need outpatient cardiac catheterization. LDL 82 total cholesterol 146, aspirin discontinued AFib with RVR heart rate improving, but remain elevated dose of metoprolol increased to 50 mg q.8 hours by Cardiology, continue Eliquis patient is scheduled for FREEDOM cardioversion this a.m. by Cardiology, Goal is for rhythm control. Syncope/cardiomyopathy Possibly secondary to ventricular tachycardia or VFib since he has severe cardiomyopathy, patient is scheduled for cardioversion today ,will need outpatient cardiac catheterization to assess for ischemia, continue tele monitor, continue losartan, beta-blockers and Eliquis Elevated ferritin of 809, normal MCV, normal iron saturation less likely hemochromatosis. Elevated LFTs LFTs trending down, No abdominal pain, abdominal ultrasound showed no gallstones but showed mild fluid above the right lobe, likely related to passive congestion Await abdominal ultrasound report, follow LFTs DVT prophylaxis-heparin
--- NOTE | 2020-10-23 11:50 | MHC.SHP ---
Pre-Procedural Eval Section A The patient is an INPATIENT: Yes Changes since office visit: Yes Patient answered all questions The History & Physical has been completed within 30 days and I have reviewed it.: Yes Section B Chief Complaint: NSTEMI Atrial fibrillation Syncope Allergies: Allergies Allergy/AdvReac Type Severity Reaction Status Date / Time amoxicillin [AMOXICILLIN] AdvReac Unknown STOMACH Verified 10/23/20 11:08 UPSET Plan I have reviewed the history and physical and performed a pertinent physical examination on my patient. No changes have occurred unless specified.
--- NOTE | 2020-10-23 12:23 | ECG_ITS ---
Test Reason : CARDIOVERSION Blood Pressure : / mmHG Vent. Rate : 062 BPM Atrial Rate : 044 BPM P-R Int : 128 ms QRS Dur : 166 ms QT Int : 476 ms P-R-T Axes : 000 240 070 degrees QTc Int : 483 ms Suspect limb lead reversal, interpretation assumes no reversal Normal sinus rhythm with Accelerated Idioventricular rhythm with AV block Abnormal ECG When compared with ECG of 20-OCT-2020 16:09, Sinus rhythm has replaced Atrial fibrillation Vent. rate has decreased BY 30 BPM Accelerated Idioventricular rhythm with AV block is now Present Referred By: Rk Shipman Electronically Signed By:RK SHIPMAN MD
--- NOTE | 2020-10-23 12:24 | HO.CARDIVERS ---
Cardioversion Procedure Note Cardioversion Date of Procedure: 10/23/2020 Ordering Provider: Myself Performing Provider: Myself Indication for Procedure: Persistent atrial fibrillation rapid ventricular response with cardiomyopathy suspected to be tachycardia mediated Pre-Op Diagnosis: Persistent atrial fibrillation Post-Op Diagnosis: Sinus bradycardia with PVC Performed with Transesophageal Echo: Yes FREEDOM findings (if FREEDOM Performed): Dictated separately. In brief there were no left atrial or left atrial appendage thrombi noted History: See the consult note Consent: Verbal and Written consent was obtained from the patient before starting. The patient was made aware of the risk benefits, alternatives a 2nd opinion. Understood and agreed. Procedure: After consent obtained, cardioversion pads were attached in anteroposterior and the patient was sedated by the anesthesia team. Once adequate sedation achieved, patient was delivered 200 joules of biphasic synchronized energy in anteroposterior configuration. Complications: None Impression: Patient converted to sinus rhythm with PACs and PVCs with sinus bradycardia Recommendations: 1. Plan reduce metoprolol to 25 mg b.i.d. 2. Start amiodarone 400 mg b.i.d. for rhythm support 3. Continue full oral anticoagulation 4. Twelve lead EKG.
[2020-10-23] MEDS: Amiodarone HCL 200 MG TABLET 400 MG PO ×2 (13:32→20:57)
--- NOTE | 2020-10-23 18:23 | CA_ITS ---
Transthoracic Echocardiogram Patient (Last, First, Middle): Huber Keys R Gender: Male Date of : 1955 Age: 64 Procedure Date: 10/23/2020 Procedure Type: Transthoracic Echocardiogram Location: [facility] [place] Height: 187.96 cm Weight: 104.78 kg BSA: 2.31 m2 Heart Rate: bpm BP: 122 / 65 mmHg [employer]: SEAN Referring MD: Heather HANSEN Superintendent Nonselling: Rk Shipman MD Symptoms: nstemi Study Quality: Good ECG Rhythm: Sinus Conclusions: - 1. Mildly dilated left ventricle with severe LV systolic dysfunction with LVEF of 15-20% 2. Moderate biatrial enlargement 3. Moderate mitral regurgitation 4. Normal RV systolic pressure 5. No pericardial effusion Findings Left Ventricle Mildly increased left ventricular cavity size. The left ventricular systolic function is severely decreased. The visually estimated ejection fraction is between 15-20%. There is severe global hypokinesis. Diastolic function is indeterminate on the basis of available data. Right Ventricle Mildly increased right ventricular cavity size. There is normal right ventricular systolic function. Atria Moderate biatrial enlargement. There is no evidence of interatrial shunt. Aortic Valve Normal aortic valve structure and function. There is no aortic valve stenosis. There is trace (trivial) aortic valve regurgitation. Mitral Valve There is mild anterior and posterior mitral leaflet thickening. There is moderate mitral valve regurgitation. There is no mitral valve stenosis. Pulmonic Valve The pulmonic valve is likely normal. There is trace pulmonic valve regurgitation. Tricuspid Valve Normal tricuspid valve structure. There is mild tricuspid valve regurgitation. The right ventricular systolic pressure is normal. The right ventricular systolic pressure is 30 mmHg. Normal right atrial pressure. There is no evidence of pulmonary hypertension. Great Vessels All visible segments of the aorta are normal in size. The pulmonary artery was not well visualized. Venous The inferior vena cava is normal in size and collapses greater than 50% with inspiration. Pericardium/Pleural There is no evidence of pericardial effusion. Prior Study Comparison No significant change compared to prior study. Measurements M-Mode Liner Measurements Normals - Women/Men LVIDd: 7.17 3.9-5.3/4.2-5.9 cm LVIDd Index: 3.10 1.9-3.2 cm/m2 LVIDs: 5.57 2.0-3.8 cm M-Mode Volumes LV EDV: 270.00 LV ESV: 152.00 2D Linear Measurements IVSd: 1.17 0.6-0.9/0.6-1.0 cm LVIDd: 6.15 3.9-5.3/4.2-5.9 cm LVIDd Index: 2.66 2.4-3.2/2.2-3.1 cm/m2 LVIDs: 5.20 2.0-3.6 cm LVPWd: 1.60 0.7-1.1 cm Ao Root: 3.00 2.1-3.5 cm LA Diam: 4.10 2.7-3.8/3.0-4.0 cm LAIDs Index: 1.77 1.5-2.3 cm/m2 LV Mass: 496.21 67-162/88-224 g LV Mass Index: 214.81 43-95/49-115 g/m2 LVOT Diam: 2.30 3.0+(-)1.3 cm 2D Systolic Function EF 4C: 40.40 >55% EF 2C: 58.10 >55% M-Mode Systolic Function FS: 22.30 27-47/25-43% Mitral Valve MV Pk E: 0.65 MV Decel Time: 167.00 E'Medial: 6.93 E/E' Med: 9.40 PHT: 49.00 MVA PHT: 4.49 Decel [place]: 3.89 Aortic Valve AoV Pk Fam: 1.03 AoV Pk Grad: 4.00 LVOT LVOT Pk Fam: 1.01 LVOT Mn Fam: 0.69 LVOT VTI: 0.17 LVOT Pk Grad: 4.00 LVOT Mn Grad: 3.00 LVOT Diam: 2.30 LVOT Area: 4.15 Diastolic Function MV Pk E: 0.65 E'Medial: 6.93 E/E' Med: 9.40 Tricuspid Valve TR Pk Fam: 2.35 TR Pk Grad: 22.00 RA Press: 8.00 RVSP: 30.00 Great Vessels Aorta Ao Root-2D: 3.00 2.0-3.7 cm Ao Asc: 3.40 2.1-3.4 cm Updated in Other Vendor System with Status of Final Rk Shipman MD electronically signed on 10/23/2020 5:02:33 PM with status of Final
[2020-10-23] MEDS: Metoprolol Tartrate 25 MG TABLET PO (20:56)
[2020-10-24] VITALS: BP 98/68; PULSE 64; RESP 18; TEMP 36.8; O2SAT 94
--- NOTE | 2020-10-24 | ECG_ITS ---
Test Reason : CK RHYTHM Blood Pressure : / mmHG Vent. Rate : 071 BPM Atrial Rate : 071 BPM P-R Int : 136 ms QRS Dur : 172 ms QT Int : 474 ms P-R-T Axes : 016 -51 108 degrees QTc Int : 515 ms Sinus rhythm with Accelerated Idioventricular rhythm with AV block Abnormal ECG When compared with ECG of 24-OCT-2020 09:04, Sinus rhythm has replaced Accelerated Idioventricular rhythm with AV block Referred By: Nica Flynn Electronically Signed By:SELENA KIDD MD
--- NOTE | 2020-10-24 | ECG_ITS ---
Test Reason : CK RHYTHM Blood Pressure : / mmHG Vent. Rate : 067 BPM Atrial Rate : 066 BPM P-R Int : 000 ms QRS Dur : 162 ms QT Int : 478 ms P-R-T Axes : 000 -53 108 degrees QTc Int : 505 ms Accelerated Idioventricular rhythm with AV block Abnormal ECG When compared with ECG of 23-OCT-2020 12:37, Persistent AIVR is present Referred By: Nica Flynn Electronically Signed By:SELENA KIDD MD
[2020-10-24] MEDS: 0.9 % Sodium Chloride Flush 3 ML SYRINGE IVFLUSH ×2 (00:54→08:23)
[2020-10-24 04:00] VITALS: BP 104/80; PULSE 67; RESP 18; TEMP 37.1; O2SAT 99
[2020-10-24 07:23] VITALS: BP 116/84; PULSE 69; RESP 20; TEMP 36.6; O2SAT 98
[2020-10-24 08:23] VITALS: BP 116/84; PULSE 70
[2020-10-24] MEDS: Apixaban 5 MG TABLET PO (08:23)
[2020-10-24] MEDS: Metoprolol Tartrate 25 MG TABLET PO (08:23)
[2020-10-24 08:24] VITALS: BP 116/84; PULSE 70
[2020-10-24] MEDS: Valsartan 40 MG TABLET PO (08:24)
[2020-10-24] MEDS: Amiodarone HCL 200 MG TABLET 400 MG PO (08:24)
--- NOTE | 2020-10-24 09:34 | P.PNCA_ITS ---
Subjective Subjective Date of Service: 10/24/20 <CHARLOTTE Saunders - Last Filed: 10/24/20 10:01> 10/24/20 <Rk Shipman MD - Last Filed: 10/24/20 10:09> Principal diagnosis: Syncope, Atrial fibrillation, cardiomyopathy <CHARLOTTE Saunders - Last Filed: 10/24/20 10:01> Interval history: Cardiology follow up for syncope, afib, CMP. Seen at 0845. Today he report feeling good with less heart palpitations then prior to CVR. He denies sob, chest discomfort, dizziness, presyncope. No PND, orthopnea or edema. Did not sleep well due to hospital activity. Requesting to go home today. <CHARLOTTE Saunders - Last Filed: 10/24/20 10:01> Review of Systems Review of Systems as above <CHARLOTTE Saunders - Last Filed: 10/24/20 10:01> Yes all other systems are reviewed and are negative <CHARLOTTE Saunders - Last Filed: 10/24/20 10:01> Physical Exam Vital Signs: Last Vital Signs Temp 97.8 F 10/24/20 07:23 Pulse 70 10/24/20 08:24 Resp 20 10/24/20 07:23 BP 116/84 10/24/20 08:24 Pulse Ox 98 10/24/20 07:23 Body Mass Index 29.7 <CHARLOTTE Saunders - Last Filed: 10/24/20 10:01> Const General: cooperative, healthy appearing, no acute distress, alert and awake <CHARLOTTE Saunders - Last Filed: 10/24/20 10:01> Orientation/consciousness: patient oriented x3 <CHARLOTTE Saunders - Last Filed: 10/24/20 10:01> Neck Neck: Yes normal visual inspection and Yes no JVD <CHARLOTTE Saunders Last Filed: 10/24/20 10:01> Resp Effort & Inspection: normal respiratory effort, able to speak in complete sentences and not labored <CHARLOTTE Saunders - Last Filed: 10/24/20 10:01> Auscultation: clear to auscultation bilaterally, no crackles, no rales, no rhonchi and no wheezes <CHARLOTTE Saunders - Last Filed: 10/24/20 10:01> Cardio Palpation: normal PMI <CHARLOTTE Saunders Last Filed: 10/24/20 10:01> Rate: regular rate <MAYRA Saunders - Last Filed: 10/24/20 10:01> Rhythm: regular rhythm <MAYRA Saunders - Last Filed: 10/24/20 10:01> Heart sounds: S1 normal heart sound present and S2 normal heart sound present <CHARLOTTE Saunders - Last Filed: 10/24/20 10:01> Peripheral pulses: Peripheral pulses 2+ throughout <MAYRA Saunders - Last Filed: 10/24/20 10:01> GI Inspection: Yes normal to inspection <Nica Flynn MAYRA Hugo Last Filed: 10/24/20 10:01> Skin General skin exam: no rashes or lesions noted <MAYRA Saunders - Last Filed: 10/24/20 10:01> Neuro General: patient oriented x3 <CHARLOTTE Saunders Last Filed: 10/24/20 10:01> Extrem General: Yes normal to inspection and No edema <Nica Flynn MAYRA - Last Filed: 10/24/20 10:01> Results Labs and Meds Result diagrams: : 10/21/20 05:57 10/23/20 05:34 <Nica Flynn MAYRA - Last Filed: 10/24/20 10:01> Progress Note: A&P Assessment and plan (1) Syncope: Status: Acute <Nica Flynn CHARLOTTE Arias Last Filed: 10/24/20 10:01> Assessment and Plan: Syncope while at work prior to admit. Has known reduced EF. He likely had ventricular arrhythmia contributing to this event. Echo shows EF 15- 20%, mod biatrial enlargement, mod MR, normal RV. He did have afib RVR, CVR. Now on Amiodarone and Metoprolol. EKG pending for this am. Tele does show Accelerated idioventricular rhythm alternating with SR, PACs, brief PAF episodes, average rates 60-70s. Reviewed with Dr Shipman. Will stop Metoprolol and continue Amiodarone. We are arranging Life Vest for him, for outpt use. Spent 15 minute with him going over all of his questions regarding medical condition, meds, life vest. <CHARLOTTE Saunders - Last Filed: 10/24/20 10:01> Patient seen and examined with non Rina. Case was discussed in details. Physical exam as above. Syncope of unclear etiology in patient with severe LV systolic dysfunction. Ventricular arrhythmias likely. Will arrange for external vest defibrillator prior to discharge. <Rk Shipman MD - Last Filed: 10/24/20 10:09> (2) Atrial fibrillation with rapid ventricular response: Status: Acute <CHARLOTTE Saunders - Last Filed: 10/24/20 10:01> Assessment and Plan: Afib RVR on admit. He had not been on any meds at home. Started on Eliquis for anticoagulation. Amiodarone and Metoprolol for rhythm and rate control. He underwent FREEDOM CVR yesterday with successful conversion back to SR. Tele this am as above. Will stop Metoprolol. Ongoing Tele monitoring during admit. <CHARLOTTE Saunders - Last Filed: 10/24/20 10:01> (3) Cardiomyopathy: Status: Acute <CHARLOTTE Saunders - Last Filed: 10/24/20 10:01> Assessment and Plan: Severe reduced LV systolic function with EF 15-20%. No clinical signs of decompensated HF. CMP may be tachycardia induced with his untreated Afib RVR prior to admit. May also be ischemic. Has been started on Diovan for neurohormonal modulation. Metoprolol being stopped due to accelerated idioventricular rhythm. Will need outpt ischemic evaluation. 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 Ischemic workup will be pursued as an outpatient. Will eventually re-evaluate LV systolic function as outpatient once rate is adequately controlled. Hold metoprolol for now due to x-ray did idioventricular rhythm, see below. Continue valsartan for neurohormonal modulation. Signs and symptoms of heart failure were discussed, he understands. <Rk Shipman MD - Last Filed: 10/24/20 10:09> (4) NSTEMI (non-ST elevated myocardial infarction): Status: Acute <CHARLOTTE Saunders - Last Filed: 10/24/20 10:01> Assessment and Plan: Troponin elevated at 1100 on admit. No report of CP, sob. EKG initially without ischemic changes. EKG on 10/20 with inverted T waves V4-V6. Likely a secondary type NSTEMI in setting of his afib RVR. Pt is insistent on going home today. Will need outpt ischemic eval and cardiology follow up in next week. <CHARLOTTE Saunders - Last Filed: 10/24/20 10:01> (5) Accelerated idioventricular rhythm: Status: Acute <CHARLOTTE Saunders - Last Filed: 10/24/20 10:01> Assessment and Plan: Excellent idioventricular rhythm, could suggest underlying sinoatrial edith dysfunction of ventricular irritability. However this is not a very malignant arrhythmias. Will reduce metoprolol as above. Continue amiodarone therapy. Vest defibrillator. Will obtain outpatient Holter monitor. <Rk Shipman MD - Last Filed: 10/24/20 10:09> (6) PAF (paroxysmal atrial fibrillation): Status: Acute <CHARLOTTE Saunders - Last Filed: 10/24/20 10:01> Assessment and Plan: Paroxysmal atrial fibrillation status post FREEDOM guided cardioversion. Tolerated this procedure well. Now noted some sinus rhythm with accelerated idioventricular rhythm. Will continue amiodarone therapy. Hold of her metoprolol therapy. Outpatient Holter monitor will be pursued. Continue full oral anticoagulation as prescribed currently. Management of atrial fibrillation including rhythm control approach was discussed in details. He shows understanding. Symptoms of palpitations have improved. Once the vest defibrillator as attached to the patient patient can be discharged home. Will set up for followup in 7-10 days. <Rk Shipman MD - Last Filed: 10/24/20 10:09> Fall Risk Details Current Medications: Current Medications Generic Name Dose Route Start Last Admin Trade Name Russ PRN Reason Stop Dose Admin Acetaminophen 650 mg 10/20/20 18:23 Acetaminophen 325 Mg Tablet PO Q6H PRN Pain, Mild (Pain Scale 1-3) Amiodarone HCl 400 mg 10/23/20 12:30 10/24/20 08:24 Amiodarone Hcl 200 Mg Tablet PO 400 mg BID RUBI Administration Apixaban 5 mg 10/22/20 21:00 10/24/20 08:23 Apixaban 5 Mg Tablet PO 5 mg BID RUBI Administration Docusate Sodium 100 mg 10/20/20 18:23 Docusate Sodium 100 Mg Capsule PO DAILY PRN Constipation Metoprolol Tartrate 25 mg 10/23/20 21:00 10/24/20 08:23 Metoprolol Tartrate 25 Mg Tablet PO 25 mg BID RUBI Administration Protocol Sodium Chloride 3 ml 10/21/20 00:00 10/24/20 08:23 0.9 % Sodium Chloride Flush 3 Ml Syringe IVFLUSH 3 ml QSHIFT RUBI Administration Valsartan 40 mg 10/23/20 10:05 10/24/20 08:24 Valsartan 40 Mg Tablet PO 40 mg BID RUBI Administration Protocol <CHARLOTTE Saunders - Last Filed: 10/24/20 10:01> Time Spent With Patient Time: Total time spent is greater than 50% in coordination of care (as documented) at patient's floor/unit and/or counseling patient: 24min <CHARLOTTE Saunders - Last Filed: 10/24/20 10:01> Time with patient: 15 - 24 minutes <CHARLOTTE Saunders - Last Filed: 10/24/20 10:01>
[2020-10-24 11:42] VITALS: BP 110/75; PULSE 66; RESP 20; TEMP 36.8; O2SAT 97
--- NOTE | 2020-10-24 12:22 | MHC.CM.PN ---
CM informed that Patient's Life Vest has been ordered and once it has arrived it will be fitted (Contact is Ruddy @ [phone]).
--- NOTE | 2020-10-24 14:42 | PM.DS ---
DS: Providers Provider Date of Service: 10/24/20 Date of admission: 10/20/20 18:23 Primary care physician: Kati Russ MD Consults: 10/20/20 18:23 Consult to Cardiology Routine Consulting Provider: Kenny Isabel Reason for consultation: NSTEMI, syncope, atrial fibrillation Has provider been notified: No DS: Diagnosis Discharge Diagnosis (1) Syncope: Status: Acute (2) Cardiomyopathy: Status: Acute (3) Accelerated idioventricular rhythm: Status: Acute (4) PAF (paroxysmal atrial fibrillation): Status: Acute DS: Medications Discharge Medications Home Medications: Home Medications Medication Instructions Recorded Confirmed No Known Home Meds 07/13/20 10/20/20 DS: Summary Hospital Course Hospital Course: History of presenting illness Syncope This is a 64-year-old male who presents the emergency department after syncopal event. Patient states that he was working on his a ladder when he felt himself becoming lightheaded. He passed out falling from the ladder landing face 1st. This fall was witnessed and he came to immediately after falling. He denies any palpitations chest pain or shortness of breath prior to his fall. Imaging including facial bone CT, C-spine CT, thoracic spine CT, head CT showed no acute abnormalities. Patient does report intermittent palpitations over the past several weeks. He denies any chest pain or shortness of breath. He was diagnosed with atrial fibrillation and was evaluated by Cardiology in July. History CHADs score was low and he was not started on anticoagulation and he did not want to start any other rate control medication. He had an echocardiogram which showed an ejection fraction of 15-20%. On arrival he was noted to be in atrial fibrillation with rapid ventricular response. He was treated with a dose of IV Cardizem. Lab work revealed troponin of 1149. He was started on heparin drip. Repeat troponin has decreased to 266. EKG shows T-wave inversions in leads V4 through V6. Hospital course Syncope/cardiomyopathy with EF 15-20 64-year-old gentleman with past medical history of known reduced EF presented to [facility] due to syncopal episode that was felt to be related to ventricular arrhythmia and echocardiogram showed an EF of 15-20% with moderate by atrial enlargement, moderate mitral regurg and normal right ventricle patient was noted to be in AFib with rapid ventricular rate therefore treated with metoprolol initially a IV heparin later transitioned to Eliquis subsequently patient underwent a successful FREEDOM guided cardioversion patient remains in sinus rhythm patient is being followed by Dr. Cruz and has been placed on amiodarone and Lupillo inhibitors due to significantly low EF and ventricular arrhythmia of external vest defibrillator has been arranged for the patient he has been instructed to have follow-up with cardiology in next 7-10 days it was felt the patient cardiomyopathy is likely rate related consistent with tachycardia ischemic workup will be pursued as an outpatient by Cardiology Patient has received teachings with for congestive heart failure Atrial fibrillation with RVR continue amiodarone and Eliquis patient is status post successful cardioversion Syncope likely due to ventricular arrhythmia Secondary non ST-elevation LA in setting of atrial fibrillation with RVR Time Spent with Patient Time attestation: Total time spent providing and/or coordinating discharge services: Discharge coordination time: Greater than 30 minutes Physical Exam Vital Signs: Vital Signs: Last Vital Signs Temp 98.2 F 10/24/20 11:42 Pulse 66 10/24/20 11:42 Resp 20 10/24/20 11:42 BP 110/75 10/24/20 11:42 Pulse Ox 97 10/24/20 11:42 Body Mass Index 29.7 General patient resting comfortably in no acute distress. Neck is supple no JVD. CVS regular rate rhythm, Respiratory lungs clear to auscultation, no respiratory distress Gastrointestinal abdomen soft, nontender, bowel sounds audible Extremities no clubbing cyanosis or edema. Neuro nonfocal . Skin no rash DS: Data Data Completed and Pending Labs on day of discharge: Laboratory Tests 10/19/20 10/19/20 10/19/20 20:04 20:04 20:04 WBC 10.0 RBC 4.57 L Hgb 14.9 Hct 42.4 MCV 92.8 MCH 32.6 MCHC 35.1 RDW 12.6 Plt Count 146 L MPV 9.7 Immature Gran % (Auto) 0.2 Neut % (Auto) 86.0 H Lymph % (Auto) 6.6 L [place] % (Auto) 6.8 Eos % (Auto) 0.1 Baso % (Auto) 0.3 Lymph # (Auto) 0.7 L [place] # (Auto) 0.7 Eos # (Auto) 0.0 Baso # (Auto) 0.0 Abs Immat Gran (auto) 0.02 Absolute Neuts (auto) 8.6 H Absolute Nucleated RBC 0.000 Nucleated RBC % (auto) 0.0 Smear Tech's Comments PT 14.1 H INR 1.2 H APTT 35.2 PTT (Heparin Protocol) Sodium Potassium Chloride Carbon Dioxide Anion Gap BUN Creatinine Estim Creat Clear Calc Estimated GFR Random Glucose Calcium Iron TIBC % Saturation Unsat Iron Binding Ferritin Total Bilirubin Direct Bilirubin AST ALT Alkaline Phosphatase Troponin I High Sens 1149.7 H Total Protein Albumin Triglycerides Cholesterol LDL Cholesterol, Calc HDL Cholesterol Urine Color Urine Appearance Urine pH Ur Specific [place] Urine Protein Urine Glucose (UA) Urine Ketones Urine Blood Urine Nitrite Ur Leukocyte Esterase Urine RBC Urine WBC Ur Squamous Epith Cells Urine Bacteria COVID-19 ([facility]) COVID-19 Clin Com 10/19/20 10/20/20 10/20/20 20:04 00:30 03:42 WBC 8.5 RBC 4.31 L Hgb 13.8 L Hct 39.9 L MCV 92.6 MCH 32.0 MCHC 34.6 RDW 12.5 Plt Count 136 L MPV 10.2 Immature Gran % (Auto) Neut % (Auto) Lymph % (Auto) [place] % (Auto) Eos % (Auto) Baso % (Auto) Lymph # (Auto) [place] # (Auto) Eos # (Auto) Baso # (Auto) Abs Immat Gran (auto) Absolute Neuts (auto) Absolute Nucleated RBC 0.000 Nucleated RBC % (auto) 0.0 Smear Tech's Comments PT INR APTT PTT (Heparin Protocol) Sodium 136 Potassium 4.2 Chloride 102 Carbon Dioxide 25 Anion Gap 13 BUN 20 H Creatinine 0.91 Estim Creat Clear Calc 107.3 Estimated GFR > 60 Random Glucose 129 H Calcium 8.5 Iron TIBC % Saturation Unsat Iron Binding Ferritin Total Bilirubin 3.3 H Direct Bilirubin 0.7 H AST 91 H ALT 81 H Alkaline Phosphatase 75 Troponin I High Sens Total Protein 6.8 Albumin 4.5 Triglycerides Cholesterol LDL Cholesterol, Calc HDL Cholesterol Urine Color YELLOW Urine Appearance CLEAR Urine pH 6.5 Ur Specific [place] 1.020 Urine Protein NEG Urine Glucose (UA) NEG Urine Ketones NEG Urine Blood 3+ H Urine Nitrite NEG Ur Leukocyte Esterase NEG Urine RBC 15-29 H Urine WBC 1-4 Ur Squamous Epith Cells 1+ Urine Bacteria 1+ COVID-19 ([facility]) COVID-19 Clin Com 10/20/20 10/20/2010/20/21 03:42 03:42 09:35 WBC RBC Hgb Hct MCV MCH MCHC RDW Plt Count MPV Immature Gran % (Auto) Neut % (Auto) Lymph % (Auto) [place] % (Auto) Eos % (Auto) Baso % (Auto) Lymph # (Auto) [place] # (Auto) Eos # (Auto) Baso # (Auto) Abs Immat Gran (auto) Absolute Neuts (auto) Absolute Nucleated RBC Nucleated RBC % (auto) Smear Tech's Comments PT Cancelled 15.6 H INR Cancelled 1.3 H APTT PTT (Heparin Protocol) 88.7 H 66.7 D Sodium Potassium Chloride Carbon Dioxide Anion Gap BUN Creatinine Estim Creat Clear Calc Estimated GFR Random Glucose Calcium Iron TIBC % Saturation Unsat Iron Binding Ferritin Total Bilirubin Direct Bilirubin AST ALT Alkaline Phosphatase Troponin I High Sens Total Protein Albumin Triglycerides Cholesterol LDL Cholesterol, Calc HDL Cholesterol Urine Color Urine Appearance Urine pH Ur Specific [place] Urine Protein Urine Glucose (UA) Urine Ketones Urine Blood Urine Nitrite Ur Leukocyte Esterase Urine RBC Urine WBC Ur Squamous Epith Cells Urine Bacteria COVID-19 ([facility]IE) COVID-19 Clin Com 10/20/20 10/20/20 10/20/20 16:24 16:24 16:44 WBC RBC Hgb Hct MCV MCH MCHC RDW Plt Count MPV Immature Gran % (Auto) Neut % (Auto) Lymph % (Auto) [place] % (Auto) Eos % (Auto) Baso % (Auto) Lymph # (Auto) [place] # (Auto) Eos # (Auto) Baso # (Auto) Abs Immat Gran (auto) Absolute Neuts (auto) Absolute Nucleated RBC Nucleated RBC % (auto) Smear Tech's Comments PT INR APTT PTT (Heparin Protocol) 60.2 Sodium Potassium Chloride Carbon Dioxide Anion Gap BUN Creatinine Estim Creat Clear Calc Estimated GFR Random Glucose Calcium Iron TIBC % Saturation Unsat Iron Binding Ferritin Total Bilirubin Direct Bilirubin AST ALT Alkaline Phosphatase Troponin I High Sens 266.7 H D Total Protein Albumin Triglycerides Cholesterol LDL Cholesterol, Calc HDL Cholesterol Urine Color Urine Appearance Urine pH Ur Specific [place] Urine Protein Urine Glucose (UA) Urine Ketones Urine Blood Urine Nitrite Ur Leukocyte Esterase Urine RBC Urine WBC Ur Squamous Epith Cells Urine Bacteria COVID-19 ([facility]) Negative COVID-19 Clin Com See Note 01/09/21 01/09/21 01/09/21 05:57 05:57 07:33 WBC 7.4 RBC 4.37 L Hgb 13.9 L Hct 40.4 L MCV 92.4 MCH 31.8 MCHC 34.4 RDW 12.1 Plt Count 135 L MPV 10.3 Immature Gran % (Auto) 0.3 Neut % (Auto) 67.8 Lymph % (Auto) 18.0 L [place] % (Auto) 11.3 H Eos % (Auto) 1.8 Baso % (Auto) 0.8 Lymph # (Auto) 1.3 [place] # (Auto) 0.8 Eos # (Auto) 0.1 Baso # (Auto) 0.1 Abs Immat Gran (auto) 0.02 Absolute Neuts (auto) 5.0 Absolute Nucleated RBC 0.000 Nucleated RBC % (auto) 0.0 Smear Tech's Comments VERIFIED PT INR APTT PTT (Heparin Protocol) 51.6 L Sodium 136 Potassium 4.3 Chloride 102 Carbon Dioxide 26 Anion Gap 12 BUN 16 Creatinine 0.74 Estim Creat Clear Calc 131.9 Estimated GFR > 60 Random Glucose 97 Calcium 8.3 L Iron TIBC % Saturation Unsat Iron Binding Ferritin Total Bilirubin 4.7 H Direct Bilirubin 0.5 AST 75 H ALT 76 H Alkaline Phosphatase 66 Troponin I High Sens Total Protein 6.0 L Albumin 3.9 Triglycerides 66 Cholesterol 146 LDL Cholesterol, Calc 82 HDL Cholesterol 51 Urine Color Urine Appearance Urine pH Ur Specific [place] Urine Protein Urine Glucose (UA) Urine Ketones Urine Blood Urine Nitrite Ur Leukocyte Esterase Urine RBC Urine WBC Ur Squamous Epith Cells Urine Bacteria COVID-19 ([facility]IE) COVID-19 Clin Com 10/21/20 10/21/20 10/22/20 14:20 22:08 04:01 WBC RBC Hgb Hct MCV MCH MCHC RDW Plt Count MPV Immature Gran % (Auto) Neut % (Auto) Lymph % (Auto) [place] % (Auto) Eos % (Auto) Baso % (Auto) Lymph # (Auto) [place] # (Auto) Eos # (Auto) Baso # (Auto) Abs Immat Gran (auto) Absolute Neuts (auto) Absolute Nucleated RBC Nucleated RBC % (auto) Smear Tech's Comments PT INR APTT PTT (Heparin Protocol) 87.6 H D 49.9 L D 95.5 H D Sodium Potassium Chloride Carbon Dioxide Anion Gap BUN Creatinine Estim Creat Clear Calc Estimated GFR Random Glucose Calcium Iron TIBC % Saturation Unsat Iron Binding Ferritin Total Bilirubin Direct Bilirubin AST ALT Alkaline Phosphatase Troponin I High Sens Total Protein Albumin Triglycerides Cholesterol LDL Cholesterol, Calc HDL Cholesterol Urine Color Urine Appearance Urine pH Ur Specific [place] Urine Protein Urine Glucose (UA) Urine Ketones Urine Blood Urine Nitrite Ur Leukocyte Esterase Urine RBC Urine WBC Ur Squamous Epith Cells Urine Bacteria COVID-19 ([facility]IE) COVID-19 Clin Com 10/22/20 10/23/20 06:02 05:34 WBC RBC Hgb Hct MCV MCH MCHC RDW Plt Count MPV Immature Gran % (Auto) Neut % (Auto) Lymph % (Auto) [place] % (Auto) Eos % (Auto) Baso % (Auto) Lymph # (Auto) [place] # (Auto) Eos # (Auto) Baso # (Auto) Abs Immat Gran (auto) Absolute Neuts (auto) Absolute Nucleated RBC Nucleated RBC % (auto) Smear Tech's Comments PT INR APTT PTT (Heparin Protocol) Sodium 137 Potassium 4.7 Chloride 103 Carbon Dioxide 25 Anion Gap 14 BUN 17 H Creatinine 0.77 Estim Creat Clear Calc 126.8 Estimated GFR > 60 Random Glucose 94 Calcium 8.4 Iron 97 TIBC 265 % Saturation 37 Unsat Iron Binding 168 Ferritin 809 H Total Bilirubin 3.2 H Direct Bilirubin 0.5 AST 40 H D ALT 51 H Alkaline Phosphatase 68 Troponin I High Sens Total Protein 5.9 L Albumin 3.7 Triglycerides Cholesterol LDL Cholesterol, Calc HDL Cholesterol Urine Color Urine Appearance Urine pH Ur Specific [place] Urine Protein Urine Glucose (UA) Urine Ketones Urine Blood Urine Nitrite Ur Leukocyte Esterase Urine RBC Urine WBC Ur Squamous Epith Cells Urine Bacteria COVID-19 ([facility]) COVID-19 Clin Com Discharge Plan Discharge Patient Disposition: Home, Self-Care Referrals: Kati Baird MD [Primary Care Provider] - Discharge Medications: New Eliquis 5 mg Tablet 5 mg PO BID Qty: 60 RF: 0 valsartan 40 mg Tablet 40 mg PO BID Qty: 60 RF: 0 amiodarone 200 mg tablet 200 mg PO DAILY Qty: 30 RF: 0 amiodarone 200 mg tablet 400 mg PO BID Qty: 60 RF: 0 Discharge Orders: Discharge Order (Routine); Ordered 10/24/20 Ordered By: Matias Cao Diet: low fat, low cholesterol and low salt diet Activity on Discharge: As tolerated Patient Instructions: Amiodarone (By mouth), Apixaban (By mouth) Visit Report Forms: Patient Portal Discharge page Care Plan Goals: Take all medications as prescribed Health Concerns: Cardiomyopathy Plan of Treatment: Close outpatient follow-up with Cardiology and primary care physician
--- NOTE | 2020-10-24 14:45 | MHC.CM.PN ---
Patient has been medically cleared for dc to home today, no services.
--- NOTE | 2020-10-24 14:51 | HO.POSTANES ---
Post Anesthesia Evaluation Post Anesthesia Evaluation Vital Signs: Vital Signs Temp Pulse Resp BP Pulse Ox 10/24/20 11:42 98.2 F 66 20 110/75 97 10/24/20 08:24 70 116/84 10/24/20 08:23 70 116/84 10/24/20 07:23 97.8 F 69 20 116/84 98 10/24/20 04:00 98.8 F 67 18 104/80 99 Anesthesia: Monitored Mental Status: Awake Pain Control: Satisfactory Nausea/Vomiting: None Hydration: Adequate Anesthesia-Related Issues: No Anes. Related Issues
== END 2020-10-24 15:30 | disposition home or self-care (01) | DRG 201 ==
LOC: HO.ED 23:00 → HO.IMC 10-20 18:28
PROVIDERS: Internal Medicine; Internal Medicine Cardiovascular Disease; Nurse Practitioner Family; Physician Assistant Medical; Admitting Provider Internal Medicine; Emergency Provider Internal Medicine; PCP Internal Medicine; Visit Provider Hospitalist
PROC: 5A2204Z Restoration of Cardiac Rhythm, Single (ICD-10-PCS; principal; 2020-10-23 11:30)
DX: I48.0 Paroxysmal atrial fibrillation (principal); I21.A1 Myocardial infarction type 2; I42.9 Cardiomyopathy, unspecified; Z20.828 Contact with and (suspected) exposure to other viral communicable diseases; Z88.0 Allergy status to penicillin; Z79.01 Long term (current) use of anticoagulants; Z79.899 Other long term (current) drug therapy
CPT/HCPCS: 36415; 70450; 70486; 72125; 72128; 76705; 80048; 80061; 80076; 81001; 82728; 83540; 84484; 85025; 85027; 85610; 85730; 87635; 92960; 93005; 93306; 93312; 96374; 96375; 99285

== ENCOUNTER → 2020-11-09 10:09 | Outpatient (REF) | payer OTHER, SELFPAY ==
--- NOTE | 2020-11-09 10:00 | CA_ITS ---
Acquisition Time: 2020-11-09 11:34:26 Total Exercise Time: 00:02:00 Test Indications: Post IA Medications: ELIQUIS VALSARTAN AMIODORONE Protocol: LEXISCAN Max HR: 150 BPM 95% of Pred: 157 BPM Max BP: 148/080 mmHG Max Work Load: 1.0 METS Pharmacological stress test with Lexiscan injection, while sitting and kicking his legs, without anginal symptoms, with isolated PVCs, with normotensive response to injection, with nondiagnostic EKG for ischemia. Heart rate elevated to max of 150, 95% MPHR. In recovery he was given Aminophylline 75mg IVP to reverse Lexiscan. Nuclear images pending. Test reviewed with Dr Shipman. Referred By: Rk Shipman Overread By: ARANZA FARRIS
--- NOTE | 2020-11-09 10:29 | NM_ITS ---
Lexiscan Myocardial perfusion study Indication: Atrial fibrillation, cardiomyopathy, assess for coronary disease and ischemia Technique: The patient was brought in for a Lexiscan perfusion study on 11/09/2020 and was injected 0.4 mg of Lexiscan intravenously. Within a minute of this injection 30 mCi of sestamibi was given intravenously. Images were obtained using the SPECT gamma camera interlaced with the gating device. Images were obtained in supine position. Resting perfusion study was performed on 11/10/2020. Patient was administered 30 mCi of sestamibi intravenously at rest. Images were then obtained in supine position. Total DLP 74mGy-cm. Images were processed with the software and compared side to side in short axis, horizontal long axis and vertical long axis views. Findings: Raw acquisition was reviewed. The stress perfusion study showed diminished tracer uptake along the inferior wall and inferolateral wall. With CT attenuation correction, this improves suggestive of diaphragmatic attenuation artifact. The gated study shows globally diminished LV systolic function with calculated LVEF of 32%. LV cavity is dilated in size. The gated study shows diminished wall thickening and contraction of segments. Resting study shows diminished tracer uptake along the inferior wall and inferolateral wall which improves with CT attenuation correction. Gating at rest reveals ejection fraction at 38%. The findings are consistent with no reversible defects. Fixed inferior/inferolateral defect suspected be from diaphragmatic attenuation. NM/NM cardiolite stress test Impression: 1. Myocardial perfusion imaging study shows no evidence of any ischemia. Fixed inferior/inferolateral defect suspected to be from diaphragmatic attenuation artifact. 2. Gated LVEF is 32% during stress; 38% during rest. Correlate with echocardiogram. 3. Transient ischemic dilatation not present but LV cavity is dilated. EKG component of the test reported separately.
== END ==
LOC: HO.CARD 10:09
PROVIDERS: PCP Internal Medicine; Visit Provider Internal Medicine Cardiovascular Disease
DX: I48.0 Paroxysmal atrial fibrillation (principal); R55 Syncope and collapse; I21.4 Non-ST elevation (NSTEMI) myocardial infarction; I42.9 Cardiomyopathy, unspecified; I51.9 Heart disease, unspecified
CPT/HCPCS: 78452; 93017; A9500; J0280; J2785

== ENCOUNTER → 2020-11-13 11:08 | Outpatient (BNVA) | payer OTHER, SELFPAY | PROVIDERS: PCP Internal Medicine; Visit Provider Nurse Practitioner Family | DX: I48.0 Paroxysmal atrial fibrillation (principal); I42.9 Cardiomyopathy, unspecified; I51.9 Heart disease, unspecified; I44.2 Atrioventricular block, complete; I21.4 Non-ST elevation (NSTEMI) myocardial infarction; R55 Syncope and collapse | CPT/HCPCS: 93005; 99212 ==

== ENCOUNTER 2020-11-15 10:32 | Day surgery (SDC) | payer OTHER, SELFPAY ==
[2020-11-14 12:48] VITALS: BMI 27.0
[2020-11-15] VITALS (9 sets, daily range): BP systolic 122–138; BP diastolic 83–105; PULSE 54–83; RESP 12–18; TEMP 36.3–36.4; O2SAT 96–100
--- NOTE | 2020-11-15 08:47 | MHC.SHP ---
Pre-Procedural Eval Section A The patient is an INPATIENT: No Changes since office visit: Yes Patient answered all questions; No Cold of Flu in the past 2 weeks, No New Medical Problems and No Changes in Medication The History & Physical has been completed within 30 days and I have reviewed it.: Yes Section B Chief Complaint: afib Allergies: Allergies Allergy/AdvReac Type Severity Reaction Status Date / Time amoxicillin [AMOXICILLIN] AdvReac Unknown STOMACH Verified 10/23/20 11:08 UPSET Plan I have reviewed the history and physical and performed a pertinent physical examination on my patient. No changes have occurred unless specified.
--- NOTE | 2020-11-15 11:26 | HO.ANESPROP2 ---
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 NSTEMI (non-ST elevated myocardial infarction) Severe left ventricular systolic dysfunction Syncope Varicose veins of left lower extremity Family History Family History Father Lymphoma Mother Hemochromatosis Factor V Leiden Esophageal cancer Surgical History Surgical History Hx of vein stripping S/P left inguinal herniorrhaphy Social History Social History Household Members: Spouse Housing: House Alcohol intake: current Alcohol intake frequency: a few times a month Smoking Status: Never smoker Second Hand Smoke Exposure: No Use of substances other than those prescribed or required for medical reasons: No Advance Directives: No Advance Directives Information Provided: No Recently lost weight without trying: No service: No Current occupational status: employed Meds Allergies Allergy/AdvReac Type Severity Reaction Status Date / Time amoxicillin [AMOXICILLIN] AdvReac Unknown STOMACH Verified 10/23/20 11:08 UPSET Exam Exam Date and Time: November 15, 2020 1126 Height,Weight and Vital Signs: Height 6 ft 2 in Weight 95.51 kg Last Vital Signs Temp 97.5 F 11/15/20 11:12 Pulse 83 11/15/20 11:12 Resp 16 11/15/20 11:12 BP 138/105 H 11/15/20 11:12 Pulse Ox 96 11/15/20 11:12 Airway Mallampati Class: II (Trauma from fall shift ) TM Dist: >3cm Neck ROM: Full Heart: RRR Lungs: CTA BL Assessment and Plan Assessment Anesthesia Assessment: Anesthesia Plan Discussed and Chart Reviewed Final Anesthetic Review NPO: Yes (Sip water with med) ASA Class: III Final Preanesthetic Review: Meds/Allgs Chart Reviewed and Consent Obtained/Reviewed Patient Risk: Intermediate Procedure Risk: Intermediate Anesthetic Plan Anesthetic Plan: MAC: Disposition: Standard PACU
[2020-11-15] MEDS: Lactated Ringers 1,000 ML 100 ML IVCONT (11:27)
--- NOTE | 2020-11-15 12:23 | ECG_ITS ---
Test Reason : S/P CARDIOVERSION Blood Pressure : / mmHG Vent. Rate : 057 BPM Atrial Rate : 057 BPM P-R Int : 170 ms QRS Dur : 128 ms QT Int : 478 ms P-R-T Axes : 060 -45 012 degrees QTc Int : 465 ms Sinus bradycardia with Premature atrial complexes Right bundle branch block Left anterior fascicular block Bifascicular block Minimal voltage criteria for LVH, may be normal variant Abnormal ECG When compared with ECG of 24-OCT-2020 09:07, Premature atrial complexes are now Present Accelerated idioventricular rhythm is not present Referred By: Rk Shipman Electronically Signed By:RK SHIPMAN MD
--- NOTE | 2020-11-15 12:24 | HO.CARDIVERS ---
Cardioversion Procedure Note Cardioversion Date of Procedure: 11/15/2020 Ordering Provider: Myself Performing Provider: Myself Indication for Procedure: Persistent recurrent atrial fibrillation on amiodarone with heart failure and cardiomyopathy Pre-Op Diagnosis: Persistent atrial fibrillation Post-Op Diagnosis: Sinus rhythm Performed with Transesophageal Echo: No History: See history and physical for details Consent: Verbal and Written consent was obtained from the patient before starting and confirming oral anticoagulation. The patient was made aware of the risk benefits, 2nd opinion as well as alternatives. Patient understood and agreed. Procedure: After consent obtained, cardioversion pads were attached AP configuration and the patient was sedated by the anesthesia team. Once adequate sedation achieved, 200 joules of biphasic synchronized energy was delivered in AP configuration Complications: Non Impression: Successful conversion to sinus rhythm Recommendations: 1. Continue amiodarone 2. Continue Eliquis 3. EKG next 4. Follow up in the office
--- NOTE | 2020-11-15 13:32 | HO.POSTANES ---
Post Anesthesia Evaluation Post Anesthesia Evaluation Vital Signs: Vital Signs Temp Pulse Resp BP Pulse Ox 11/15/20 13:08 56 16 130/91 H 98 11/15/20 12:53 57 18 134/87 98 11/15/20 12:38 56 16 123/88 99 11/15/20 12:33 54 18 123/86 98 11/15/20 12:28 55 16 122/84 100 11/15/20 12:23 97.4 F 57 12 133/83 100 11/15/20 11:12 97.5 F 83 16 138/105 H 96 Anesthesia: General Mental Status: Awake Pain Control: Satisfactory Nausea/Vomiting: None Hydration: Adequate Anesthesia-Related Issues: No Anes. Related Issues
== END 2020-11-15 13:48 | disposition home or self-care (01) ==
PROVIDERS: PCP Internal Medicine; Visit Provider Internal Medicine Cardiovascular Disease
PROC: 5A2204Z Restoration of Cardiac Rhythm, Single (ICD-10-PCS; principal; 2020-11-15 12:00)
DX: I48.0 Paroxysmal atrial fibrillation (principal); I51.9 Heart disease, unspecified; Z79.01 Long term (current) use of anticoagulants; Z79.899 Other long term (current) drug therapy; Z88.1 Allergy status to other antibiotic agents; Z85.828 Personal history of other malignant neoplasm of skin
CPT/HCPCS: 92960; 93005

== ENCOUNTER → 2020-11-28 10:36 | Outpatient (BNVA) | payer OTHER, SELFPAY | PROVIDERS: PCP Internal Medicine; Visit Provider Nurse Practitioner Family | DX: I48.0 Paroxysmal atrial fibrillation (principal); R55 Syncope and collapse; I42.9 Cardiomyopathy, unspecified; I51.9 Heart disease, unspecified; I44.2 Atrioventricular block, complete; I21.4 Non-ST elevation (NSTEMI) myocardial infarction | CPT/HCPCS: 93005; 99212 ==

== ENCOUNTER 2020-12-05 11:51 | Outpatient (REF) | payer OTHER, SELFPAY ==
[2020-12-05 13:38] LABS: Alanine Aminotransferase 85 U/L (0-40); Albumin Level 4.5 g/dL (3.5-5.0); Alkaline Phosphatase 112 U/L (39-117); Anion Gap 13 (12-20); Aspartate Amino Transferase 55 U/L (5-37); Bilirubin Total 1.3 mg/dL (0.0-1.0); Blood Urea Nitrogen 17 mg/dL (9-16); Carbon Dioxide 27 mmol/L (22-29); Chloride 102 mmol/L (96-108); Estimated Glomerular Filt Rate > 60; Glucose Random 84 mg/dL (60-115); Potassium 4.4 mmol/L (3.3-5.1); Sodium 138 mmol/L (135-145); Total Protein 7.2 g/dL (6.5-8.0)
[2020-12-05 14:03] LABS: TSH reflex Free T4 7.61 uIU/mL (0.32-4.0)
[2020-12-05 14:37] LABS: Free T4 (Free Thyroxine) 0.91 ng/dL (0.71-1.85)
== END 2020-12-05 11:52 | disposition home or self-care (01) ==
LOC: HO.LAB 11:51
PROVIDERS: PCP Internal Medicine; Visit Provider Nurse Practitioner Family
DX: I51.9 Heart disease, unspecified (principal)
CPT/HCPCS: 36415; 80053; 84439; 84443

== ENCOUNTER → 2020-12-08 07:36 | Outpatient (REF) | payer OTHER, SELFPAY ==
--- NOTE | 2020-12-08 07:39 | CA_ITS ---
Transthoracic Echocardiogram Patient (Last, First, Middle): Huber Keys R Gender: Male Date of : 1955 Age: 64 Procedure Date: 12/08/2020 Procedure Type: Transthoracic Echocardiogram Location: OP Height: 187.96 cm Weight: 97.52 kg BSA: 2.24 m2 Heart Rate: bpm BP: 120 / 74 mmHg Equipment Oiler: [email or web address] Referring MD: Nica Flynn NP-[facility] Windows Security Engineer: Rk Shipman MD Symptoms: I51.9 - Heart disease, unspecified Study Quality: Good ECG Rhythm: Bradycardia Conclusions: - Low normal LV systolic function with mild LVH with impaired relaxation filling pattern Findings Left Ventricle Normal left ventricular cavity size. There is mildly increased left ventricular wall thickness. The left ventricular systolic function is low normal. The visually estimated ejection fraction is between 50-55%. Spectral Doppler is indicative of an impaired relaxation filling pattern. E/E prime ratio is between 8 and 15 consistent with indeterminate filling pressures. Right Ventricle Normal right ventricular cavity size and systolic function. Pericardium/Pleural There is no evidence of pericardial effusion. Prior Study Comparison Significant changes compared to prior study dated: 10/23/2020. LV systolic function significantly improved Measurements 2D Linear Measurements IVSd: 1.26 0.6-0.9/0.6-1.0 cm LVIDd: 5.22 3.9-5.3/4.2-5.9 cm LVIDd Index: 2.33 2.4-3.2/2.2-3.1 cm/m2 LVIDs: 4.48 2.0-3.6 cm LVPWd: 1.20 0.7-1.1 cm LV Mass: 323.18 67-162/88-224 g LV Mass Index: 144.28 43-95/49-115 g/m2 2D Systolic Function EF 4C: 53.80 >55% EF 2C: 53.00 >55% EF BiP: 52.80 >55% Mitral Valve MV Pk E: 0.60 MV PK A: 0.43 MV Decel Time: 232.00 E/A: 1.40 E'Lateral: 7.51 E'Medial: 5.00 E/E' Med: 12.00 E/E' Lat: 8.00 PHT: 68.00 MVA PHT: 3.24 Decel [place]: 2.59 Diastolic Function MV Pk E: 0.60 MV Pk A: 0.43 E/A: 1.40 E'Medial: 5.00 E/E' Med: 12.00 E' Laterial: 7.51 E/E' Lat: 8.00 Tricuspid Valve TR Pk Fam: 2.51 TR Pk Grad: 25.00 RA Press: 3.00 RVSP: 28.00 Updated in Other Vendor System with Status of Final Rk Shipman MD electronically signed on 12/09/2020 1:59:09 PM with status of Final
== END ==
LOC: HO.CARD 07:36
PROVIDERS: Visit Provider Nurse Practitioner Family
DX: I51.9 Heart disease, unspecified (principal)
CPT/HCPCS: 93308

== ENCOUNTER → 2020-12-18 09:48 | Outpatient (REF) | payer OTHER, SELFPAY ==
--- NOTE | 2020-12-18 11:30 | ECG_ITS ---
Hook-up date: 2020-12-18 10:56:00 Duration: 26:49:00 Test Indications: NSTEMI, CARDIOMY, PAF, SYNCOPE Medications: 15485 QRS complexes 33 Ventricular ectopics which represent <1 % of total QRS comp. 87 Supraventricular ectopics which represent <1 % of total QRS comp. * Paced QRS complexs which represent % of total QRS comp. VENTRICULAR ECTOPY 33 Isolated 0 Bigeminal Cycles 0 Couplets 0 Runs 0 Beats in Runs * Beats LONGEST at * BPM at :: -- * Beats FASTEST at * BPM at :: -- SUPRAVENTRICULAR ECTOPY 47 Isolated 5 Couplets 6 Runs 30 Beats in Runs 13 Beats LONGEST at 73 BPM at 14:41:22 2020-12-18 5 Beats FASTEST at 170 BPM at 21:18:18 2020-12-18 HEART RATES 48 MIN at 17:06:46 2020-12-18 62 AVG 89 MAX at 05:37:46 2020-12-19 LONGEST RR 1.4240 secs at 18:26:18 2020-12-18 S-T LEVELS Channel 1 - 128 mm at 10:56:00 2020-12-18 - 128 mm at 10:56:00 2020-12-18 Channel 2 - 128 mm at 10:56:00 2020-12-18 - 128 mm at 10:56:00 2020-12-18 Channel 3 - 128 mm at 03:01:51 -- - 128 mm at 03:01:51 Basic rhythm Normal sinus rhythm No long pause or profound bradycardia Rare ectopics No sustained Atrial fibrillation Patient did not report any symptoms in the diary I was requested to read this reported on 01/09/21 Referred By: Nica Flynn Overread By: SELENA KIDD MD
== END ==
LOC: HO.CARD 09:48
PROVIDERS: PCP Internal Medicine; Visit Provider Nurse Practitioner Family
DX: I44.2 Atrioventricular block, complete (principal); I45.2 Bifascicular block; I48.0 Paroxysmal atrial fibrillation
CPT/HCPCS: 93226

== ENCOUNTER 2020-12-29 08:25 | Outpatient (REF) | payer OTHER, SELFPAY ==
[2020-12-29 09:15] LABS: Hematocrit 41.6 % (42-52); Hemoglobin 14.1 g/dl (14.0-18.0); Mean Corpuscular HGB Conc 33.9 g/dl (31.0-36.0); Mean Corpuscular Hemoglobin 31.3 pg (27.0-33.0); Mean Corpuscular Volume 92.4 fL (80-98); Mean Platelet Volume 9.4 fL (9.4-12.4); Platelet Count 198 X10*3/uL (160-400); Red Cell Distribution Width 12.7 % (11.0-16.0); White Blood Count 4.8 X10*3/uL (4.8-10.8)
[2020-12-29 09:55] LABS: Alanine Aminotransferase 43 U/L (0-40); Albumin Level 4.2 g/dL (3.5-5.0); Alkaline Phosphatase 85 U/L (39-117); Anion Gap 10 (12-20); Aspartate Amino Transferase 32 U/L (5-37); Bilirubin Total 1.7 mg/dL (0.0-1.0); Blood Urea Nitrogen 18 mg/dL (9-16); Calcium 8.7 mg/dL (8.4-10.2); Carbon Dioxide 28 mmol/L (22-29); Chloride 104 mmol/L (96-108); Cholesterol 173 mg/dL; Estimated Glomerular Filt Rate > 60; Glucose Fasting 85 mg/dL (60-99); HDL Cholesterol 51 mg/dL; LDL Cholesterol Calculated 110 mg/dl; Potassium 4.3 mmol/L (3.3-5.1); Sodium 138 mmol/L (135-145); Total Protein 6.8 g/dL (6.5-8.0); Triglycerides 60 mg/dL
== END 2020-12-29 08:26 | disposition home or self-care (01) ==
LOC: HO.LAB 08:25
PROVIDERS: PCP Internal Medicine; Visit Provider Physician Assistant
DX: Z12.5 Encounter for screening for malignant neoplasm of prostate (principal); R97.20 Elevated prostate specific antigen [PSA]; I10 Essential (primary) hypertension; I48.0 Paroxysmal atrial fibrillation
CPT/HCPCS: 36415; 80053; 80061; 84153; 85027

== ENCOUNTER → 2021-01-09 08:57 | Outpatient (BNVA) | payer OTHER, SELFPAY | PROVIDERS: PCP Internal Medicine; Visit Provider Internal Medicine Cardiovascular Disease | DX: I48.19 Other persistent atrial fibrillation (principal); I42.9 Cardiomyopathy, unspecified; Z79.899 Other long term (current) drug therapy | CPT/HCPCS: 93005; 99212 ==

== ENCOUNTER → 2021-02-08 12:46 | Outpatient (BNVA) | payer OTHER, SELFPAY | PROVIDERS: PCP Internal Medicine; Visit Provider Internal Medicine Cardiovascular Disease | DX: I48.19 Other persistent atrial fibrillation (principal); I42.9 Cardiomyopathy, unspecified; Z79.899 Other long term (current) drug therapy | CPT/HCPCS: 93005; 99212 ==

== ENCOUNTER 2021-02-28 07:37 | Outpatient (REF) | payer OTHER, SELFPAY ==
[2021-02-28 08:50] LABS: Hematocrit 40.8 % (42-52); Hemoglobin 13.7 g/dl (14.0-18.0); Mean Corpuscular HGB Conc 33.6 g/dl (31.0-36.0); Mean Corpuscular Hemoglobin 31.6 pg (27.0-33.0); Mean Corpuscular Volume 94.2 fL (80-98); Mean Platelet Volume 9.6 fL (9.4-12.4); Platelet Count 190 X10*3/uL (160-400); Red Blood Count 4.33 X10*6/uL (4.60-5.80); Red Cell Distribution Width 13.1 % (11.0-16.0)
[2021-02-28 09:15] LABS: Alanine Aminotransferase 20 U/L (0-40); Alkaline Phosphatase 73 U/L (39-117); Anion Gap 10 (12-20); Aspartate Amino Transferase 21 U/L (5-37); Bilirubin Total 1.6 mg/dL (0.0-1.0); Blood Urea Nitrogen 19 mg/dL (9-16); Calcium 8.4 mg/dL (8.4-10.2); Carbon Dioxide 25 mmol/L (22-29); Chloride 107 mmol/L (96-108); Cholesterol 164 mg/dL; Estimated Glomerular Filt Rate > 60; Glucose Fasting 93 mg/dL (60-99); HDL Cholesterol 43 mg/dL; LDL Cholesterol Calculated 109 mg/dl; Potassium 4.2 mmol/L (3.3-5.1); Sodium 138 mmol/L (135-145); Total Protein 6.5 g/dL (6.5-8.0); Triglycerides 60 mg/dL
[2021-02-28 09:22] LABS: TSH reflex Free T4 4.14 uIU/mL (0.32-4.0)
[2021-02-28 09:25] LABS: Prostate Specific Antigen Scr 4.65 ng/mL (<0.05-4.0); TSH reflex Free T4 4.45 uIU/mL (0.32-4.0)
[2021-02-28 09:58] LABS: Free T4 (Free Thyroxine) 1.02 ng/dL (0.71-1.85)
[2021-03-01 09:07] LABS: Thyroglobulin Antibodies <1 IU/mL (< or = 1); Thyroid Peroxidase Antibodies 1 IU/mL (<9)
== END 2021-02-28 07:38 | disposition home or self-care (01) ==
LOC: HO.LAB 07:37
PROVIDERS: Internal Medicine; PCP Physician Assistant; Visit Provider Physician Assistant
DX: I10 Essential (primary) hypertension (principal); I48.19 Other persistent atrial fibrillation; R97.20 Elevated prostate specific antigen [PSA]; R79.89 Other specified abnormal findings of blood chemistry; Z12.5 Encounter for screening for malignant neoplasm of prostate; Z83.2 Family history of diseases of the blood and blood-forming organs and certain disorders involving the immune mechanism
CPT/HCPCS: 36415; 80053; 80061; 81241; 84153; 84439; 84443; 85027; 86376; 86800

== ENCOUNTER → 2021-04-03 13:08 | Outpatient (REF) | payer OTHER, SELFPAY ==
--- NOTE | 2021-04-03 13:13 | CA_ITS ---
Transthoracic Echocardiogram Patient (Last, First, Middle): Huber Keys R Gender: Male Date of : 1955 Age: 65 Procedure Date: 04/03/2021 Procedure Type: Transthoracic Echocardiogram Location: OP Height: 187.96 cm Weight: 95.26 kg BSA: 2.22 m2 Heart Rate: bpm BP: 120 / 80 mmHg Contract Administration Coordinator: LUDY Referring MD: Rk Shipman MD Symptoms: I42.9 - Cardiomyopathy, unspecified Study Quality: Good ECG Rhythm: Atrial Fibrillation Conclusions: - The left ventricular systolic function is low normal. The visually estimated ejection fraction is between 50-55%. Findings Left Ventricle Mildly increased left ventricular cavity size. The left ventricular systolic function is low normal. The visually estimated ejection fraction is between 50-55%. Prior Study Comparison No significant change compared to prior study dated: 12/08/2020. Measurements 2D Linear Measurements IVSd: 1.22 0.6-0.9/0.6-1.0 cm LVIDd: 5.53 3.9-5.3/4.2-5.9 cm LVIDd Index: 2.49 2.4-3.2/2.2-3.1 cm/m2 LVIDs: 4.21 2.0-3.6 cm LVPWd: 1.18 0.7-1.1 cm LV Mass: 342.75 67-162/88-224 g LV Mass Index: 154.39 43-95/49-115 g/m2 2D Systolic Function EF 4C: 51.70 >55% EF 2C: 53.60 >55% Updated in Other Vendor System with Status of Final Artem Abdalla MD electronically signed on 04/04/2021 8:27:09 AM with status of Final
--- NOTE | 2021-04-03 13:50 | ECG_ITS ---
Hook-up date: 2021-04-03 13:42:00 Duration: 26:06:00 Test Indications: PERSISTANT AFIB Medications: 927901 QRS complexes 17460 Ventricular ectopics which represent 10 % of total QRS comp. * Supraventricular ectopics which represent % of total QRS comp. * Paced QRS complexs which represent % of total QRS comp. VENTRICULAR ECTOPY 67716 Isolated 141 Bigeminal Cycles 21 Couplets 0 Runs 0 Beats in Runs * Beats LONGEST at * BPM at :: -- * Beats FASTEST at * BPM at :: -- SUPRAVENTRICULAR ECTOPY * Isolated * Couplets * Runs * Beats in Runs * Beats LONGEST at * BPM at :: -- * Beats FASTEST at * BPM at :: -- HEART RATES 40 MIN at 23:10:13 2021-04-03 73 AVG 160 MAX at 11:35:50 2021-04-04 LONGEST RR 2.4880 secs at 23:22:29 2021-04-03 S-T LEVELS Channel 1 - 128 mm at 13:42:00 2021-04-03 - 128 mm at 13:42:00 2021-04-03 Channel 2 - 128 mm at 13:42:00 2021-04-03 - 128 mm at 13:42:00 2021-04-03 Channel 3 - 128 mm at 03:30:11 -- - 128 mm at 03:30:11 Basic rhythm Atrial fibrillation Good rate control with average HR of 73 bpm Frequent Premature ventricular complexes , 10% of total beats pat Referred By: Rk Shipman Overread By: RK SHIPMAN MD
== END ==
LOC: HO.CARD 13:08
PROVIDERS: Visit Provider Internal Medicine Cardiovascular Disease
DX: I48.19 Other persistent atrial fibrillation (principal); I42.9 Cardiomyopathy, unspecified; Z88.1 Allergy status to other antibiotic agents
CPT/HCPCS: 93225; 93226; 93308

== ENCOUNTER → 2021-07-11 10:15 | Outpatient (BNVA) | payer OTHER, SELFPAY | PROVIDERS: Visit Provider Internal Medicine Cardiovascular Disease | DX: I48.19 Other persistent atrial fibrillation (principal); I42.9 Cardiomyopathy, unspecified | CPT/HCPCS: 99212 ==

== ENCOUNTER 2021-09-20 08:37 | Outpatient (REF) | payer OTHER, SELFPAY ==
[2021-09-20 09:35] LABS: Hematocrit 41.8 % (42.0-52.0); Hemoglobin 14.2 g/dl (14.0-18.0); Mean Corpuscular Hemoglobin 31.6 pg (27.0-33.0); Mean Corpuscular Volume 92.9 fL (80.0-98.0); Mean Platelet Volume 9.5 fL (9.4-12.4); Platelet Count 187 X10*3/uL (160-400); White Blood Count 5.9 X10*3/uL (4.8-10.8)
[2021-09-20 10:03] LABS: Alanine Aminotransferase 21 U/L (0-40); Alkaline Phosphatase 64 U/L (39-117); Anion Gap 10 (12-20); Aspartate Amino Transferase 22 U/L (5-37); Bilirubin Total 1.5 mg/dL (0.0-1.0); Blood Urea Nitrogen 18 mg/dL (9-16); Carbon Dioxide 27 mmol/L (22-29); Chloride 106 mmol/L (96-108); Cholesterol 183 mg/dL; Estimated Glomerular Filt Rate > 60; Glucose Fasting 86 mg/dL (60-99); HDL Cholesterol 46 mg/dL; LDL Cholesterol Calculated 123 mg/dl; Potassium 4.2 mmol/L (3.3-5.1); Sodium 139 mmol/L (135-145); Total Protein 6.6 g/dL (6.5-8.0); Triglycerides 73 mg/dL
[2021-09-20 10:38] LABS: Prostate Specific Antigen Scr 4.67 ng/mL (<0.05-4.0); TSH reflex Free T4 3.29 uIU/mL (0.32-4.0)
[2021-09-20 14:22] LABS: Estimated Average Glucose 108 mg/dL; Hemoglobin A1c % 5.4 %
== END 2021-09-20 08:38 | disposition home or self-care (01) ==
LOC: HO.LAB 08:37
PROVIDERS: PCP Physician Assistant; Visit Provider Physician Assistant
DX: Z12.5 Encounter for screening for malignant neoplasm of prostate (principal); R97.20 Elevated prostate specific antigen [PSA]; I48.19 Other persistent atrial fibrillation; R79.89 Other specified abnormal findings of blood chemistry
CPT/HCPCS: 36415; 80053; 80061; 83036; 84153; 84443; 85027

== ENCOUNTER → 2022-01-18 09:25 | Outpatient (REF) | payer MEDICARE, MEDICAID, OTHER, SELFPAY ==
--- NOTE | 2022-01-18 09:28 | CA_ITS ---
Transthoracic Echocardiogram Patient (Last, First, Middle): Huber Keys R Gender: Male Date of : 1955 Age: 66 Procedure Date: 01/18/2022 Procedure Type: Transthoracic Echocardiogram Location: OP Height: 187.96 cm Weight: 95.26 kg BSA: 2.22 m2 Heart Rate: bpm BP: 106 / 74 mmHg Resin Coater: YASMINE Referring MD: Rk Shipman MD Integrated Circuit Design Engineer: Rk Shipman MD Symptoms: I42.9 - Cardiomyopathy, unspecified Study Quality: Good ECG Rhythm: Atrial Fibrillation Conclusions: - 1. Low normal LV ejection fraction with LVEF of 50-55% 2. Severe biatrial enlargement 3. Moderately dilated right ventricle preserved systolic function 4. Trivial aortic and mild mitral regurgitation 5. Normal RV systolic pressure 6. No gross pericardial effusion Findings Left Ventricle Mildly increased left ventricular cavity size. There is normal left ventricular wall thickness. The left ventricular systolic function is low normal. The visually estimated ejection fraction is between 50-55%. Diastolic function is indeterminate on the basis of available data. Right Ventricle Moderately increased right ventricular cavity size. There is normal right ventricular systolic function. Atria Severe biatrial enlargement. There is no evidence of interatrial shunt. Aortic Valve Normal aortic valve structure and function. There is no aortic valve stenosis. There is trace (trivial) aortic valve regurgitation. Mitral Valve Normal mitral valve structure and function. There is mild mitral valve regurgitation. There is no mitral valve stenosis. Pulmonic Valve The pulmonic valve is likely normal. There is mild pulmonic valve regurgitation. Tricuspid Valve Normal tricuspid valve structure. There is mild tricuspid valve regurgitation. The right ventricular systolic pressure is normal. The right ventricular systolic pressure is 25 mmHg. Normal right atrial pressure. There is no evidence of pulmonary hypertension. Great Vessels All visible segments of the aorta are normal in size. The pulmonary artery was not well visualized. Venous The inferior vena cava is normal in size and collapses greater than 50% with inspiration. Pericardium/Pleural There is no evidence of pericardial effusion. Prior Study Comparison No significant change compared to prior study dated: 04/03/2021. Measurements 2D Linear Measurements IVSd: 1.11 0.6-0.9/0.6-1.0 cm LVIDd: 5.70 3.9-5.3/4.2-5.9 cm LVIDd Index: 2.57 2.4-3.2/2.2-3.1 cm/m2 LVIDs: 4.14 2.0-3.6 cm LVPWd: 0.93 0.7-1.1 cm LA Diam: 4.50 2.7-3.8/3.0-4.0 cm LAIDs Index: 2.03 1.5-2.3 cm/m2 LV Mass: 289.44 67-162/88-224 g LV Mass Index: 130.38 43-95/49-115 g/m2 LVOT Diam: 2.30 3.0+(-)1.3 cm 2D Systolic Function EF 4C: 50.20 >55% EF 2C: 50.30 >55% EF BiP: 49.90 >55% Mitral Valve MV Pk E: 0.52 MV PK A: 0.30 MV Decel Time: 214.00 E/A: 1.80 E'Lateral: 14.60 E'Medial: 12.60 E/E' Med: 4.20 E/E' Lat: 3.60 PHT: 63.00 MVA PHT: 3.49 Decel [place]: 2.45 Aortic Valve AoV Pk Fam: 1.02 AoV Mn Fam: 0.74 AoV VTI: 0.22 AoV Pk Grad: 4.00 Aov Mn Grad: 2.00 DIOGENES Cont.VTI: 2.81 LVOT LVOT Pk Fam: 0.71 LVOT Mn Fam: 0.50 LVOT VTI: 0.15 LVOT Pk Grad: 2.00 LVOT Mn Grad: 1.00 LVOT Diam: 2.30 LVOT Area: 4.15 Diastolic Function MV Pk E: 0.52 MV Pk A: 0.30 E/A: 1.80 E'Medial: 12.60 E/E' Med: 4.20 E' Laterial: 14.60 E/E' Lat: 3.60 Right Ventricle TAPSE (mm): 23.30 TVS' Fam: 9.79 Tricuspid Valve TR Pk Fam: 2.08 TR Pk Grad: 17.00 RA Press: 8.00 RVSP: 25.00 Great Vessels Aorta Sinus of Valsalva: 3.30 2.0-3.[address] [place]: 3.01 1.7-3.4 cm Ao Asc: 3.50 2.1-3.4 cm Updated in Other Vendor System with Status of Final Rk Shipman MD electronically signed on 01/19/2022 1:22:26 PM with status of Final
== END ==
LOC: HO.CARD 09:25
PROVIDERS: PCP Physician Assistant; Visit Provider Internal Medicine Cardiovascular Disease
DX: I42.9 Cardiomyopathy, unspecified (principal)
CPT/HCPCS: 93306

== ENCOUNTER 2022-01-25 09:44 | Outpatient (REF) | payer MEDICARE, OTHER, SELFPAY ==
[2022-01-25 10:59] LABS: Hematocrit 39.5 % (42.0-52.0); Hemoglobin 13.5 g/dl (14.0-18.0); Mean Corpuscular HGB Conc 34.2 g/dl (31.0-36.0); Mean Corpuscular Hemoglobin 31.8 pg (27.0-33.0); Mean Corpuscular Volume 92.9 fL (80.0-98.0); Mean Platelet Volume 9.5 fL (9.4-12.4); Platelet Count 175 X10*3/uL (160-400); Red Blood Count 4.25 X10*6/uL (4.60-5.80); Red Cell Distribution Width 12.6 % (11.0-16.0); White Blood Count 4.7 X10*3/uL (4.8-10.8)
[2022-01-25 11:44] LABS: Anion Gap 10 (12-20); Blood Urea Nitrogen 17 mg/dL (9-16); Calcium 8.9 mg/dL (8.4-10.2); Carbon Dioxide 25 mmol/L (22-29); Chloride 106 mmol/L (96-108); Estimated Glomerular Filt Rate > 60; Glucose Random 77 mg/dL (60-115); Potassium 4.4 mmol/L (3.3-5.1); Sodium 137 mmol/L (135-145)
== END 2022-01-25 09:45 | disposition home or self-care (01) ==
LOC: HO.LAB 09:44
PROVIDERS: PCP Physician Assistant; Referring Provider Physician Assistant; Visit Provider Internal Medicine Cardiovascular Disease
DX: I48.19 Other persistent atrial fibrillation (principal); I42.9 Cardiomyopathy, unspecified; R79.89 Other specified abnormal findings of blood chemistry
CPT/HCPCS: 36415; 80048; 84443; 85027; 93005; 99212

== ENCOUNTER 2022-07-04 08:36 | Outpatient (REF) | payer MEDICARE, MEDICAID, SELFPAY ==
[2022-07-04 10:53] LABS: Anion Gap 17 (12-20); Blood Urea Nitrogen 17 mg/dL (9-16); Calcium 8.4 mg/dL (8.4-10.2); Carbon Dioxide 24 mmol/L (22-29); Chloride 100 mmol/L (96-108); Estimated Glomerular Filt Rate > 60; Glucose Random 92 mg/dL (60-115); Sodium 137 mmol/L (135-145)
== END 2022-07-04 08:37 | disposition home or self-care (01) ==
LOC: HO.LAB 08:36
PROVIDERS: PCP Physician Assistant; Referring Provider Physician Assistant; Visit Provider Internal Medicine Cardiovascular Disease
DX: I42.9 Cardiomyopathy, unspecified (principal); I48.19 Other persistent atrial fibrillation
CPT/HCPCS: 36415; 80048; 99212

== ENCOUNTER → 2022-07-23 08:59 | Outpatient (BNVA) | payer MEDICARE, MEDICAID, SELFPAY | PROVIDERS: PCP Physician Assistant; Visit Provider Surgery | DX: K40.90 Unilateral inguinal hernia, without obstruction or gangrene, not specified as recurrent (principal) | CPT/HCPCS: 99202 ==

== ENCOUNTER 2022-08-26 07:27 | Day surgery (SDC) | payer MEDICARE, MEDICAID, SELFPAY ==
[2022-08-09 10:49] VITALS: BMI 25.7
--- NOTE | 2022-08-12 | ECG_ITS ---
Test Reason : preop Blood Pressure : / mmHG Vent. Rate : 065 BPM Atrial Rate : 000 BPM P-R Int : 000 ms QRS Dur : 118 ms QT Int : 394 ms P-R-T Axes : 000 -48 -03 degrees QTc Int : 409 ms Atrial fibrillation with premature ventricular or aberrantly conducted complexes Incomplete right bundle branch block Left anterior fascicular block Abnormal ECG When compared with ECG of 15-NOV-2020 12:36, Atrial fibrillation has replaced Sinus rhythm QT has shortened Referred By: Mirta Jacobo Electronically Signed By:MIKE EDGRA MD
[2022-08-12 12:04] VITALS: BP 125/73; PULSE 73; RESP 16; O2SAT 97; BMI 26.2
--- NOTE | 2022-08-12 12:14 | P.CONAN_ITS ---
Documented by User: Mirta Jacobo NP 08/14/22 14:41 HPI - Anesthesia Eval Consult details Narrative: 66yo M for Right Hernia Repair Inguinal with mesh Eliquis for afib Optimized per cardiology [facility] Active Problems Active Problems: All Active Problems (Updated 08/12/22 @ 12:02 by Monserrat Yuan, DEEPAK) Hemochromatosis (Acute) Cardiomyopathy (Acute) Accelerated idioventricular rhythm (Acute) Bifascicular block (Acute) Elevated PSA (Acute) Persistent atrial fibrillation (Acute) FHx: factor V Leiden mutation (Acute) Skin lesion (Acute) Annual physical exam (Acute) Knee osteoarthritis (Acute) Constipation (Acute) Elevated TSH (Acute) NSTEMI (non-ST elevated myocardial infarction) (Acute) Syncope (Acute) Past Medical History Medical History (Updated 08/12/22 @ 12:15 by Mirta Jacobo NP) Atrial fibrillation Basal cell carcinoma Cardiomyopathy Elevated PSA Elevated TSH 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 Low back pain NSTEMI (non-ST elevated myocardial infarction) PAF (paroxysmal atrial fibrillation) Seasonal allergies Syncope Varicose veins of left lower extremity Family History Family History Father Lymphoma Mother Hemochromatosis Factor V Leiden Esophageal cancer Surgical History Surgical History (Updated 08/09/22 @ 10:49 by Monserrat Yuan RN) History of cardioversion (~11/15/20) Hx of colonoscopy Hx of vein stripping S/P left inguinal herniorrhaphy Social History Social History Household Members: Spouse Housing: House Are you a primary home care companion to a significant other at home: No Do you presently have visiting nurse or other home services: No Alcohol intake: current Alcohol intake frequency: a few times a month Alcohol type: beer Patient Tobacco Use Status: Never used Tobacco Tobacco use type: Cigarette e-Cigarette/Vaping Use: Never Used Second Hand Smoke Exposure: No service: No Current occupational status: employed 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 Narrative Narrative: Mild URI last week, but negative COVID and no residual symptoms No CP/SOB/Edema Meds Allergies Allergy/AdvReac Type Severity Reaction Status Date / Time amoxicillin [AMOXICILLIN] AdvReac Intermediate STOMACH Verified 08/09/22 10:47 UPSET Exam Exam Date and Time: August 12, 2022 1214 Height,Weight and Vital Signs: Height 6 ft 2 in Weight 92.5 kg Last Vital Signs Pulse 73 08/12/22 12:04 Resp 16 08/12/22 12:04 BP 125/73 08/12/22 12:04 Pulse Ox 97 08/12/22 12:04 O2 Del Method 08/12/22 12:04 Pertinent Lab Results Pertinent Lab Results: Laboratory Tests 07/04/22 08/12/22 09:26 12:43 WBC 4.9 Hgb 13.8 L Hct 40.9 L Plt Count 171 Sodium 137 Potassium 4.0 Chloride 100 Carbon Dioxide 24 BUN 17 H Creatinine 1.01 Narrative Narrative: EKG 07/2022 Vent. Rate : 065 BPM ? ? Atrial Rate : 000 BPM ?? P-R Int : 000 ms? QRS Dur : 118 ms ? ? QT Int : 394 ms ? ? ? P-R-T Axes : 000 -48 -03 degrees ?? QTc Int : 409 ms ? Atrial fibrillation with premature ventricular or aberrantly conducted complexes Incomplete right bundle branch block Left anterior fascicular block Abnormal ECG When compared with ECG of 15-NOV-2020 12:36, Atrial fibrillation has replaced Sinus rhythm QT has shortened ECHO 01/2022 Conclusions: - 1. Low normal LV ejection fraction with LVEF of 50-55% ? 2. Severe biatrial enlargement ? 3. Moderately dilated right ventricle preserved systolic function 4. Trivial aortic and mild mitral regurgitation? 5.? Normal RV systolic pressure? 6.? No gross pericardial effusion? ? 24 Holter 03/2021 Basic rhythm Atrial fibrillation Good rate control with average HR of 73 bpm Frequent Premature ventricular complexes , 10% of total beats Airway Mallampati Class: I TM Dist: >3cm Neck ROM: Full Loose/Missing/Broken Teeth: No (Capped molars) Heart: RRR Lungs: CTAB Assessment and Plan Assessment Anesthesia Assessment: Anesthesia Plan Discussed and PAT Visit Documented by User: Golden Chavez MD 08/26/22 17:47 [facility] Past Medical History Medical History (Updated 08/12/22 @ 12:15 by Mirta Jacobo NP) Atrial fibrillation Basal cell carcinoma Cardiomyopathy Elevated PSA Elevated TSH 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 Low back pain NSTEMI (non-ST elevated myocardial infarction) PAF (paroxysmal atrial fibrillation) Seasonal allergies Syncope Varicose veins of left lower extremity Functional capacity: independent ambulation Family History Family History Father Lymphoma Mother Hemochromatosis Factor V Leiden Esophageal cancer Family history of problems with anesthesia: No Surgical History Surgical History (Updated 08/09/22 @ 10:49 by Monserrat Yuan RN) History of cardioversion (~11/15/20) Hx of colonoscopy Hx of vein stripping S/P left inguinal herniorrhaphy History of Problems with Anesthesia: No Social History Social History Household Members: Spouse Housing: House Are you a primary home care companion to a significant other at home: No Do you presently have visiting nurse or other home services: No Alcohol intake: current Alcohol intake frequency: a few times a month Alcohol type: beer Patient Tobacco Use Status: Never used Tobacco Tobacco use type: Cigarette e-Cigarette/Vaping Use: Never Used Second Hand Smoke Exposure: No service: No Current occupational status: employed 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 Meds Allergies Allergy/AdvReac Type Severity Reaction Status Date / Time amoxicillin [AMOXICILLIN] AdvReac Intermediate STOMACH Verified 08/09/22 10:47 UPSET Exam Airway Loose/Missing/Broken Teeth: Yes (Chipped front upper , poor dentition overall , caps) and No Assessment and Plan Assessment Anesthesia Assessment: Chart Reviewed Final Anesthetic Review Family History of Problems with Anesthesia: No History of Problems with Anesthesia: No NPO: Yes ASA Class: III Final Preanesthetic Review: Meds/Allgs Chart Reviewed, Consent Obtained/Reviewed and Anes Risks/Benef Reviewed Patient Risk: Intermediate Procedure Risk: Intermediate Anesthetic Plan Anesthetic Plan: GA Disposition: Standard PACU
[2022-08-12 12:59] LABS: Hematocrit 40.9 % (42.0-52.0); Hemoglobin 13.8 g/dl (14.0-18.0); Mean Corpuscular HGB Conc 33.7 g/dl (31.0-36.0); Mean Corpuscular Hemoglobin 30.9 pg (27.0-33.0); Mean Corpuscular Volume 91.5 fL (80.0-98.0); Mean Platelet Volume 9.1 fL (9.4-12.4); Platelet Count 171 X10*3/uL (160-400); Red Blood Count 4.47 X10*6/uL (4.60-5.80); Red Cell Distribution Width 12.7 % (11.0-16.0); White Blood Count 4.9 X10*3/uL (4.8-10.8)
[2022-08-26] VITALS (7 sets, daily range): BP systolic 114–131; BP diastolic 76–92; PULSE 65–110; RESP 16–18; TEMP 36.3–36.4; O2SAT 97–99
[2022-08-26] MEDS: Lactated Ringers 1,000 ML 50 ML IVCONT (08:20)
--- NOTE | 2022-08-26 08:45 | MHC.SHP ---
Pre-Procedural Eval Section A Date of Service: 08/26/22 The patient is an INPATIENT: No Changes since office visit: Yes Patient answered all questions; No Cold of Flu in the past 2 weeks, No New Medical Problems and No Changes in Medication The History & Physical has been completed within 30 days and I have reviewed it.: Yes Section B Chief Complaint: Unilateral inguinal hernia, without obstruction or Details of Present Illness: 66 year old male with complaints of a lump in the right groin which increases in size with lifting and straining and reduces with light pressure. He has a previous history of a left inguinal hernia. Since his office visit he denies any new complaints regarding hernia. Relevant Family History (Specify if Yes): No Relevant Social History: None Present Medications: see Short Stay Collaborative assessment Medical History: No relevant PMH History of Previous Operations: Relevant previous surgery/procedure and date(s) ( Left inguinal hernia repair) Allergies: Allergies Allergy/AdvReac Type Severity Reaction Status Date / Time amoxicillin [AMOXICILLIN] AdvReac Intermediate STOMACH Verified 08/09/22 10:47 UPSET Review of Systems Sugical H&P ROS: Negative: Constitution, Cardiovascular, Respiratory, Neurological, Psychiatric, Hem-Onc, Allergic/Immunologic, Gastrointestinal, Genitourinary, Musculoskeletal, Integumentary, Endocrine and Eyes/Ears/Nose/Throat Exam Surgical H&P Exam: Normal: HEENT, Normal: Heart, Normal: Lungs, Normal: Extremities, Normal: Abdomen, Normal: Skin and Normal: Neurological Plan Diagnosis/Plan: Unchanged I have reviewed the history and physical and performed a pertinent physical examination on my patient. No changes have occurred unless specified.
--- NOTE | 2022-08-26 10:14 | P.OP_ITS ---
Operative Note Operative Note Date of Service: 08/26/22 Narrative: Preoperative diagnosis: right inguinal hernia Postoperative diagnosis: same Procedure: repair of right inguinal hernia with mesh Surgeon: Alfonso Stahl MD Coding Manager: Avelina Mar PA-C, BG Nunes Anesthesia: general LMA Indications for procedure: 66-year-old male patient with a prior history of left inguinal hernia now presenting with a lump in the right groin which increases in size with lifting and standing and reduces with light pressure. On examination patient was found to have a palpable right inguinal hernia which increases with Valsalva maneuvers. Operative findings: Indirect right inguinal hernia with weakness in the direct space as well. Specimen: Hernia sac and lipoma of the cord right side Estimated blood loss: less than 2 mL Complications: none Procedure details: patient was brought to the OR and placed in a supine position. After administering general anesthesia the patient's abdomen was prepped with ChloraPrep and draped in a sterile fashion. A surgical time-out was called and the consent confirmed. Patient received preoperative antibiotics and Venodyne boots were in place. Local anesthesia consisting of 0.5% Sensorcaine With epinephrine was infiltra haley over the right inguinal ligament. An incision was then made over the right inguinal ligament carried out through subcutaneous tissue . Incision was carried down past Analilia's fascia up to the external oblique aponeurosis. Additional local was infiltrated below the external oblique aponeurosis. This was then incised with a scalpel and wide with the Metzenbaum scissors. Spermatic cord was then dissected free from the surrounding inguinal canal. This was then retracted using a [place] drain. Weakness was noted in the floor of the inguinal canal. Fibers of the cremasteric muscle were then and a indirect sac identified. This was dissected down to the internal ring. The sac was opened and contents reduced. The sac was then ligated with a 0 Polysorb suture and excised. The sac was sent as a specimen. Lipoma of the cord was also identified dissected free from the cord contents and then ligated with a 3- 0 Polysorb suture. This was then excised and sent to pathology as well. Fibers of the internal oblique aponeurosis and transversalis aponeurosis were then divided between Allis clamps and the preperitoneal space entered. This was then widened with an open Ray-Neeraj sponge. A large extended PHS mesh was then obtained. The circular underlay was deployed within the preperitoneal space in the overlay secured to the pubic tubercle, conjoined tendon, and shelving edge of the inguinal ligament using a 0 Polysorb suture. A slit was made in the mesh in the mesh wrapped around the spermatic cord at the internal ring. This was secured to the shelving edge of the inguinal ligament using the 0 Polysorb suture. The internal ring was noted to be loose enough allow the passage of the tip of the index finger. Wounds were then irrigated with saline solution and suctioned dry. Remainder of the mesh was placed below the external oblique aponeurosis laterally. External oblique aponeurosis was then closed using a running 2 0 Polysorb suture. 6 mL of Zenrelef was then infiltrated below the external oblique aponeurosis along the mesh. Analilia's fascia and dermis were then reapproximated using interrupted 3-0 Polysorb sutures. Skin was then closed using a running subcuticular 4-0 Polysorb suture. Steri-Strips, 2 x 2 gauze and Tegaderm were then applied. The patient tolerated the procedure well. Sponge, instrument, and needle counts reported as correct. Patient was transferred to PACU in stable condition.
== END 2022-08-26 12:26 | disposition home or self-care (01) ==
PROVIDERS: Nurse Practitioner; PCP Physician Assistant; Visit Provider Surgery
PROC: (CPT 49505; principal; 2022-08-26 09:10)
DX: K40.90 Unilateral inguinal hernia, without obstruction or gangrene, not specified as recurrent (principal); D17.6 Benign lipomatous neoplasm of spermatic cord; I48.0 Paroxysmal atrial fibrillation; I25.2 Old myocardial infarction; Z14.8 Genetic carrier of other disease; Z79.01 Long term (current) use of anticoagulants; Z79.899 Other long term (current) drug therapy; Z88.0 Allergy status to penicillin
CPT/HCPCS: 49505; 36415; 85027; 88302; 88304; 93005; C1781; C9088; J0690; J1100; J2250; J2405; J3010

== ENCOUNTER → 2022-09-03 09:40 | Outpatient (BNVA) | payer MEDICARE, MEDICAID, SELFPAY | PROVIDERS: PCP Physician Assistant; Visit Provider Surgery | DX: Z98.890 Other specified postprocedural states (principal); Z87.19 Personal history of other diseases of the digestive system | CPT/HCPCS: 99212 ==

== ENCOUNTER → 2022-09-26 10:32 | Outpatient (BNVA) | payer MEDICARE, MEDICAID, SELFPAY | PROVIDERS: PCP Physician Assistant; Visit Provider Physician Assistant Surgical | DX: Z48.815 Encounter for surgical aftercare following surgery on the digestive system (principal); Z98.890 Other specified postprocedural states; Z87.19 Personal history of other diseases of the digestive system | CPT/HCPCS: 99212 ==

== ENCOUNTER 2022-10-31 08:43 | Outpatient (REF) | payer MEDICARE, MEDICAID, SELFPAY ==
--- NOTE | ~2022-10-31 | XR_ITS ---
EXAMINATION: XR knee RT 2V, XR knee standing BI CLINICAL INFORMATION: Reason for Exam M25.569 - Pain in unspecified knee COMPARISON: None available at the time of this dictation. TECHNIQUE: frontal, lateral, tunnel and patella sunrise views FINDINGS: BONES: No fracture or dislocation is present. JOINTS: Mild narrowing of medial joint space compartments bilaterally. SOFT TISSUE: Normal XR/XR knee standing BI IMPRESSION: Mild arthritis involving medial compartments.
--- NOTE | ~2022-10-31 | XR_ITS ---
EXAMINATION: XR knee RT 2V, XR knee standing BI CLINICAL INFORMATION: Reason for Exam M25.569 - Pain in unspecified knee COMPARISON: None available at the time of this dictation. TECHNIQUE: frontal, lateral, tunnel and patella sunrise views FINDINGS: BONES: No fracture or dislocation is present. JOINTS: Mild narrowing of medial joint space compartments bilaterally. SOFT TISSUE: Normal XR/XR knee RT 2V IMPRESSION: Mild arthritis involving medial compartments.
== END 2022-10-31 08:44 | disposition home or self-care (01) ==
LOC: HO.HOSX 08:43
PROVIDERS: Visit Provider Orthopaedic Surgery
DX: M17.11 Unilateral primary osteoarthritis, right knee (principal)
CPT/HCPCS: 73560; 73565; 99202

== ENCOUNTER → 2022-11-11 14:59 | Outpatient (REF) | payer MEDICARE, MEDICAID, SELFPAY ==
--- NOTE | 2022-11-11 15:02 | CA_ITS ---
Transthoracic Echocardiogram Patient (Last, First, Middle): Huber Keys R Gender: Male Date of : 1955 Age: 66 Procedure Date: 11/11/2022 Procedure Type: Transthoracic Echocardiogram Location: OP Height: 187.96 cm Weight: 95.26 kg BSA: 2.22 m2 Heart Rate: 60 bpm BP: 110 / 70 mmHg Nuclear Weapons Custodian: LAURA Referring MD: Rk Shipman MD Customer Service Operator: Rk Shipman MD Symptoms: I42.9 - Cardiomyopathy, unspecified Study Quality: Fair ECG Rhythm: Atrial Fibrillation Conclusions: - 1. Mildly dilated left ventricle with low normal LV ejection fraction 50-55% 2. At least moderate biatrial enlargement 3. Trivial aortic and mild mitral regurgitation 4. Normal RV systolic pressure 5. No pericardial effusion Findings Left Ventricle Mildly increased left ventricular cavity size. There is normal left ventricular wall thickness. The left ventricular systolic function is low normal. The visually estimated ejection fraction is between 50-55%. Diastolic function is indeterminate on the basis of available data. Right Ventricle Normal right ventricular cavity size. There is normal right ventricular systolic function. Atria Moderate biatrial enlargement. There is no evidence of interatrial shunt. Aortic Valve The aortic valve structure and function is likely normal. There is no aortic valve stenosis. There is trace (trivial) aortic valve regurgitation. Mitral Valve There is mild anterior and posterior mitral leaflet thickening. There is mild mitral valve regurgitation. There is no mitral valve stenosis. Pulmonic Valve The pulmonic valve is likely normal. There is trace pulmonic valve regurgitation. Tricuspid Valve Normal tricuspid valve structure. There is trace tricuspid valve regurgitation. The right ventricular systolic pressure is normal. The right ventricular systolic pressure is 17 mmHg. Normal right atrial pressure. There is no evidence of pulmonary hypertension. Great Vessels The pulmonary artery was not well visualized. There is no dilatation of the ascending aorta measuring 3.70 cm. Venous The inferior vena cava is normal in size and collapses greater than 50% with inspiration. Pericardium/Pleural There is no evidence of pericardial effusion. Prior Study Comparison No significant change compared to prior study dated: 01/18/2022. Measurements 2D Linear Measurements IVSd: 0.93 0.6-0.9/0.6-1.0 cm LVIDd: 5.74 3.9-5.3/4.2-5.9 cm LVIDd Index: 2.59 2.4-3.2/2.2-3.1 cm/m2 LVIDs: 3.82 2.0-3.6 cm LVPWd: 1.06 0.7-1.1 cm LA Diam: 4.70 2.7-3.8/3.0-4.0 cm LAIDs Index: 2.12 1.5-2.3 cm/m2 LV Mass: 283.87 67-162/88-224 g LV Mass Index: 127.87 43-95/49-115 g/m2 LVOT Diam: 2.20 3.0+(-)1.3 cm 2D Systolic Function EF 4C: 48.10 >55% EF 2C: 53.30 >55% EF BiP: 51.50 >55% Mitral Valve MV Pk E: 0.65 MV PK A: 0.40 MV Decel Time: 245.00 E/A: 1.60 E'Lateral: 14.70 E'Medial: 9.57 E/E' Med: 6.80 E/E' Lat: 4.40 PHT: 72.00 MVA PHT: 3.06 Decel [place]: 2.66 Aortic Valve AoV Pk Fam: 0.98 AoV Mn Fam: 0.78 AoV VTI: 0.20 AoV Pk Grad: 4.00 Aov Mn Grad: 3.00 DIOGENES Cont.VTI: 2.92 LVOT LVOT Pk Fam: 0.86 LVOT Mn Fam: 0.59 LVOT VTI: 0.16 LVOT Pk Grad: 3.00 LVOT Mn Grad: 2.00 LVOT Diam: 2.20 LVOT Area: 3.80 Diastolic Function MV Pk E: 0.65 MV Pk A: 0.40 E/A: 1.60 E'Medial: 9.57 E/E' Med: 6.80 E' Laterial: 14.70 E/E' Lat: 4.40 Right Ventricle TAPSE (mm): 21.90 TVS' Fam: 11.00 Tricuspid Valve TR Pk Fam: 1.87 TR Pk Grad: 14.00 RA Press: 3.00 RVSP: 17.00 Great Vessels Aorta Sinus of Valsalva: 3.70 2.0-3.5 cm Ao Asc: 3.70 2.1-3.4 cm Pulmonary Valve PV Pk Fam: 0.75 Peak PV Grad: 2.00 Updated in Other Vendor System with Status of Final Rk Shipman MD electronically signed on 11/12/2022 1:46:41 PM with status of Final
== END ==
LOC: HO.CARD 14:59
PROVIDERS: PCP Physician Assistant; Visit Provider Internal Medicine Cardiovascular Disease
DX: I42.9 Cardiomyopathy, unspecified (principal)
CPT/HCPCS: 93306

== ENCOUNTER → 2023-01-07 08:40 | Outpatient (BNVA) | payer MEDICARE, MEDICAID, SELFPAY | PROVIDERS: PCP Physician Assistant; Referring Provider Physician Assistant; Visit Provider Internal Medicine Cardiovascular Disease | DX: I48.19 Other persistent atrial fibrillation (principal); I42.9 Cardiomyopathy, unspecified | CPT/HCPCS: 93005; 99212 ==

== ENCOUNTER 2023-01-25 07:52 | Outpatient (REF) | payer MEDICARE, MEDICAID, SELFPAY ==
[2023-01-25 08:33] LABS: Hematocrit 40.5 % (42.0-52.0); Hemoglobin 13.7 g/dl (14.0-18.0); Mean Corpuscular HGB Conc 33.8 g/dl (31.0-36.0); Mean Corpuscular Hemoglobin 31.2 pg (27.0-33.0); Mean Corpuscular Volume 92.3 fL (80.0-98.0); Mean Platelet Volume 9.7 fL (9.4-12.4); Platelet Count 172 X10*3/uL (160-400); Red Blood Count 4.39 X10*6/uL (4.60-5.80); Red Cell Distribution Width 12.7 % (11.0-16.0); White Blood Count 5.7 X10*3/uL (4.8-10.8)
[2023-01-25 09:07] LABS: Alanine Aminotransferase 19 U/L (0-40); Albumin Level 4.2 g/dL (3.5-5.0); Alkaline Phosphatase 61 U/L (39-117); Anion Gap 12 (12-20); Aspartate Amino Transferase 21 U/L (5-37); Bilirubin Total 3.6 mg/dL (0.0-1.0); Blood Urea Nitrogen 23 mg/dL (9-16); Calcium 8.9 mg/dL (8.4-10.2); Carbon Dioxide 25 mmol/L (22-29); Chloride 108 mmol/L (96-108); Cholesterol 156 mg/dL; Estimated Glomerular Filt Rate > 60; Glucose Fasting 90 mg/dL (60-99); HDL Cholesterol 45 mg/dL; LDL Cholesterol Calculated 100 mg/dl; Sodium 141 mmol/L (135-145); Total Protein 6.3 g/dL (6.5-8.0); Triglycerides 57 mg/dL
[2023-01-25 09:23] LABS: Prostate Specific Antigen Scr 7.54 ng/mL (<0.05-4.0); TSH reflex Free T4 2.31 uIU/mL (0.32-4.0)
== END 2023-01-25 07:53 | disposition home or self-care (01) ==
LOC: HO.LAB 07:52
PROVIDERS: PCP Physician Assistant; Visit Provider Physician Assistant
DX: Z12.5 Encounter for screening for malignant neoplasm of prostate (principal); I44.2 Atrioventricular block, complete; I42.9 Cardiomyopathy, unspecified; R97.20 Elevated prostate specific antigen [PSA]; I48.19 Other persistent atrial fibrillation; I25.2 Old myocardial infarction
CPT/HCPCS: 36415; 80053; 80061; 84153; 84443; 85027

== ENCOUNTER 2023-02-06 08:52 | Outpatient (REF) | payer MEDICARE, MEDICAID, SELFPAY ==
--- NOTE | ~2023-02-06 | US_ITS ---
EXAMINATION: US ABDOMEN LIMITED CLINICAL INFORMATION: Unspecified jaundice. Elevated total bilirubin. COMPARISON: Ultrasound abdomen limited 10/22/2020. TECHNIQUE: Real-time imaging of the right upper quadrant abdominal viscera. FINDINGS: PANCREAS: Normal. LIVER: Normal. The liver is normal in size. The liver contour is normal. Parenchymal echogenicity is normal. No focal hepatic lesion. There is no intrahepatic biliary duct dilatation seen. GALLBLADDER: Normal. The gallbladder is physiologically distended without evidence of stones, sludge, polyps, wall thickening or pericholecystic fluid. COMMON BILE DUCT: Normal in caliber measuring 0.5 cm in diameter. RIGHT KIDNEY: There are multiple simple cysts. No follow-up imaging is recommended. The largest measures 1.2 cm. No hydronephrosis or renal calculi. The kidney measures 12.0 cm in maximum dimension. FREE FLUID: No ascites. There is a right pleural effusion. US/US abdomen limited IMPRESSION: Right pleural effusion. Normal-appearing liver. No biliary ductal dilatation.
== END 2023-02-06 08:53 | disposition home or self-care (01) ==
LOC: HO.US 08:52
PROVIDERS: PCP Physician Assistant; Visit Provider Physician Assistant
DX: R17 Unspecified jaundice (principal)
CPT/HCPCS: 76705

== ENCOUNTER 2023-02-19 09:00 | Outpatient (REF) | payer MEDICARE, MEDICAID, SELFPAY ==
--- NOTE | ~2023-02-19 | XR_ITS ---
EXAMINATION: XR CHEST CLINICAL INFORMATION: Chronic pulmonary edema COMPARISON: Previous chest x-ray June 2007 TECHNIQUE: 2 views of the chest were obtained. FINDINGS: The cardiac and mediastinal contours are stable. The lungs are clear. No pleural effusion or pneumothorax. Degenerative changes of the spine. XR/XR chest 2V IMPRESSION: No evidence for acute disease in the chest.
== END 2023-02-19 09:01 | disposition home or self-care (01) ==
LOC: HO.XRAY 09:00
PROVIDERS: PCP Physician Assistant; Visit Provider Physician Assistant
DX: J81.1 Chronic pulmonary edema (principal)
CPT/HCPCS: 71046

== ENCOUNTER → 2023-12-29 08:57 | Outpatient (REF) | payer MEDICARE, MEDICAID, SELFPAY ==
--- NOTE | 2023-12-29 09:24 | CA_ITS ---
Transthoracic Echocardiogram Patient (Last, First, Middle): Huber Keys R Gender: Male Date of : 1955 Age: 67 Procedure Date: 12/29/2023 Procedure Type: Transthoracic Echocardiogram Location: OP Height: 187.96 cm Weight: 95.26 kg BSA: 2.22 m2 Heart Rate: bpm BP: 106 / 72 mmHg Electric Brain Wave Equipment Mechanic: YASMINE Referring MD: Rk Shipman MD Symptoms: I42.9 - Cardiomyopathy, unspecified Study Quality: Adequate ECG Rhythm: Atrial Fibrillation Conclusions: - The left ventricular systolic function is low normal. The visually estimated ejection fraction is between 50-55%. - Moderately increased right ventricular cavity size. - Severe biatrial enlargement. - No obvious valvular pathology seen on this study. Findings Left Ventricle Normal left ventricular cavity size. There is normal left ventricular wall thickness. The left ventricular systolic function is low normal. The visually estimated ejection fraction is between 50-55%. There is no evidence of regional wall motion abnormalities. Diastolic function is indeterminate on the basis of available data. Right Ventricle Moderately increased right ventricular cavity size. There is normal right ventricular systolic function. Atria Severe biatrial enlargement. Aortic Valve There is a normal trileaflet aortic valve. There is no aortic valve stenosis. There is trace (trivial) aortic valve regurgitation. Mitral Valve The mitral valve appears normal. There is mild mitral valve regurgitation. There is no mitral valve stenosis. Pulmonic Valve The pulmonic valve is likely normal. Tricuspid Valve There is mild tricuspid valve regurgitation. There is no evidence of pulmonary hypertension. Great Vessels The asc aorta is normal in size. Venous The inferior vena cava is dilated and collapses greater than 50% with inspiration. Pericardium/Pleural There is no evidence of pericardial effusion. Prior Study Comparison No significant change compared to prior study dated: 11/11/2022. Recommendations, Care & Conclusions No obvious valvular pathology seen on this study. Measurements 2D Linear Measurements IVSd: 0.95 0.6-0.9/0.6-1.0 cm LVIDd: 5.42 3.9-5.3/4.2-5.9 cm LVIDd Index: 2.44 2.4-3.2/2.2-3.1 cm/m2 LVIDs: 3.53 2.0-3.6 cm LVPWd: 0.78 0.7-1.1 cm LA Diam: 4.70 2.7-3.8/3.0-4.0 cm LAIDs Index: 2.12 1.5-2.3 cm/m2 LV Mass: 213.76 67-162/88-224 g LV Mass Index: 96.29 43-95/49-115 g/m2 LVOT Diam: 2.20 3.0+(-)1.3 cm 2D Systolic Function EF 4C: 51.30 >55% EF 2C: 51.20 >55% EF BiP: 50.70 >55% Mitral Valve MV Pk E: 0.57 MV Decel Time: 273.00 E'Lateral: 14.00 E'Medial: 9.31 E/E' Med: 6.10 E/E' Lat: 4.00 PHT: 80.00 MVA PHT: 2.75 Decel [place]: 2.12 MR Vol - PW Dopp: 6.48 MR VTI: 1.62 MR ERO: 4.00 MR Alias Fam: 0.35 MR RAD: 0.30 Aortic Valve AoV Pk Fam: 0.97 AoV Pk Grad: 4.00 LVOT LVOT Pk Fam: 0.68 LVOT Pk Grad: 2.00 LVOT Diam: 2.20 LVOT Area: 3.80 Diastolic Function MV Pk E: 0.57 E'Medial: 9.31 E/E' Med: 6.10 E' Laterial: 14.00 E/E' Lat: 4.00 Right Ventricle TAPSE (mm): 22.30 TVS' Fam: 10.40 Tricuspid Valve TR Pk Fam: 2.13 TR Pk Grad: 18.00 RA Press: 8.00 RVSP: 26.00 Great Vessels Aorta Sinus of Valsalva: 3.39 2.0-3.[address] [place]: 2.60 1.7-3.4 cm Ao Asc: 3.70 2.1-3.4 cm Updated in Other Vendor System with Status of Final Artem Abdalla MD electronically signed on 12/29/2023 12:30:13 PM with status of Final
== END ==
LOC: HO.CARD 08:57
PROVIDERS: PCP Physician Assistant; Visit Provider Internal Medicine Cardiovascular Disease
DX: I42.9 Cardiomyopathy, unspecified (principal)
CPT/HCPCS: 93306

== ENCOUNTER → 2023-12-29 09:24 | Outpatient (BNV) | payer MEDICARE, MEDICAID, SELFPAY | PROVIDERS: PCP Physician Assistant; Visit Provider Internal Medicine | DX: I42.9 Cardiomyopathy, unspecified (principal); I48.91 Unspecified atrial fibrillation | CPT/HCPCS: 93306 ==

== ENCOUNTER 2024-01-08 08:39 | Outpatient (AMB) | payer MEDICARE, MEDICAID, SELFPAY ==
[2024-01-08 08:45] VITALS: BP 120/82; PULSE 66; BMI 26.9
--- NOTE | 2024-01-08 08:45 | A.OFFVIS_ITS ---
Intake Vital Signs 01/08/24 08:45 Height 6 ft 2 in Weight 209 lb 7.026 oz BMI 26.9 BP 120/82 Blood Pressure Location Lt brachial Position Sitting Pulse 66 Intake Visit Reasons: 1 year follow up Intake Note: 1 year follow-up with ekg feeling good Water Conservationist Required: No Allergies amoxicillin [AMOXICILLIN] Adverse Reaction (Intermediate, Verified 01/20/23 15:31) STOMACH UPSET Medication List - Last Reconciled 01/08/24 by Rk Shipman MD acetaminophen ER 650 mg PO Q12H PRN 10 days apixaban (Eliquis) 5 mg PO BID 90 days metoprolol tartrate 50 mg PO BID 90 days sacubitril-valsartan 24-26 mg (Entresto) 1 tab PO BID HPI HPI Comments History of Present Illness Details Huber comes for follow-up. He has been doing well from cardiac perspective. [place] continues [place] walk in [place]4 miles. He says however this is reduced compared to in the past. He denies any worsening shortness of breath, orthopnea, PND, leg edema. Denies any prolonged palpitations irregular heartbeat. She denies any bleeding issues or neurologic events. Denies any lightheadedness, syncope. Recent echocardiogram shows low normal LVEF of 50-55% with severe biatrial enlargement without any significant valvular abnormalities. 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 Low back pain NSTEMI (non-ST elevated myocardial infarction) PAF (paroxysmal atrial fibrillation) Seasonal allergies Syncope Varicose veins of left lower extremity Surgical History H/O right inguinal hernia repair (08/26/22) History of cardioversion (~11/15/20) Hx of colonoscopy Hx of vein stripping S/P left inguinal herniorrhaphy Family History Father Lymphoma Mother Hemochromatosis Factor V Leiden Esophageal cancer Social History (Updated 01/20/23 @ 15:40 by Donnie Garcia PA-C) Household Members: Spouse Housing: House Are you a primary health care / medical job titles to a significant other at home: No Do you presently have visiting nurse or other home services: No Alcohol intake: current Alcohol intake frequency: a few times a month Alcohol type: beer Comment: pt refused bed alarm, educated on safety Patient Tobacco Use Status: Never used Tobacco Tobacco use type: Cigarette e-Cigarette/Vaping Use: Never Used Second Hand Smoke Exposure: No service: No Current occupational status: employed 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 Review of Systems Const Denies chills, Denies fatigue, Denies fever(s), Denies frequent falls, Denies weakness, Denies weight gain and Denies weight loss ENT Denies dizziness Card Denies chest pain, Denies leg edema, Denies lightheadedness, Denies palpitations , Denies dyspnea, Denies dyspnea on exertion, Denies orthopnea and Denies other (loss of consciousness) Resp Denies cough, Denies dyspnea and Denies dyspnea on exertion GI Denies hematochezia and Denies change in stool character Musc Denies abnormal gait, Denies muscle weakness, Denies numbness, Denies radiating pain into limb and Denies tingling Neuro Denies abnormal gait, Denies dizziness, Denies frequent falls, Denies numbness, Denies tingling and Denies weakness Endo Denies fatigue and Denies palpitations Physical Exam Vital Signs: Last Vital Signs Pulse 66 01/08/24 08:45 BP 120/82 01/08/24 08:45 BMI result Body Mass Index 26.9 Const General: cooperative, comfortable, alert and awake Nutritional Appearance: average body habitus Orientation/consciousness: patient oriented x3 Limitations: no limitations Neck Neck: Yes trachea midline, Yes supple and Yes no JVD Resp Effort & Inspection: normal respiratory effort Auscultation: clear to auscultation bilaterally Cardio Jugular venous distension: no JVD Rhythm: abnormal rhythm irregularly irregular Heart sounds: S1 normal heart sound present and S2 normal heart sound present GI Auscultation: normal bowel sounds Skin General skin exam: no rashes or lesions noted Neuro General: patient oriented x3 and no focal motor deficits Extrem General: Yes no clubbing, cyanosis or edema Psych Appearance: grossly normal Office Procedures EKG Details: EKG shows atrial fibrillation with incomplete right bundle branch block otherwise no significant changes [id number], Complete Assessment & Plan Assessment & Plan (1) Cardiomyopathy: Code(s): I42.9 - Cardiomyopathy, unspecified Qualifiers: Cardiomyopathy type: ischemic Qualified Code(s): I25.5 - Ischemic cardiomyopathy Plan: Prior history of cardiomyopathy severe LV systolic dysfunction heart failure syndrome which has now near normal LV systolic function without any heart failure. Continue to pursue neurohormonal modulation. Importance of this was discussed. Continue Entresto as well as metoprolol therapy. Signs and symptoms of heart failure were discussed advised to call me with any new symptoms. No indication for diuretic therapy. Follow-up echocardiogram in 1 year's time. Continue avoid cardiotoxic agent such as alcohol. Continue rate control for atrial fibrillation. Encouraged to continue to participate in physical activity as tolerated. (2) Persistent atrial fibrillation: Code(s): I48.19 - Other persistent atrial fibrillation Plan: Chronic persistent atrial fibrillation has failed rhythm control approach and unlikely to pursue rhythm control approach given his severe biatrial enlargement and chronicity of atrial fibrillation. This was discussed with him. Continue rate control approach with metoprolol. Continue full oral anticoagulation, currently on Eliquis 5 mg b.i.d.. Semi annual renal function test should be pursued. Annual CBC will be pursued. Will request some blood work today. Follow up in the clinic in 1 year's time after an echocardiogram. Thank you for allowing me to partake in his care Orders: Orders CA echo transthoracic complete 1 Year I25.5 - Ischemic cardiomyopathy Basic Metabolic Panel Today I25.5 - Ischemic cardiomyopathy Complete Blood Count no Diff Today I25.5 - Ischemic cardiomyopathy TSH reflex Free T4 Today I25.5 - Ischemic cardiomyopathy PSA, Ultra Sensitive Today I25.5 - Ischemic cardiomyopathy Coding Level of Care Code Est Pt Level 4 (80105) Diagnoses Ischemic cardiomyopathy I25.5 Cardiomyopathy type: ischemic Persistent atrial fibrillation I48.19 CPT Codes EKG - CPT: 60297-[id number], Complete ([id number])
== END 2024-01-08 09:02 | disposition home or self-care (01) ==
PROVIDERS: Visit Provider Internal Medicine Cardiovascular Disease
DX: I25.5 Ischemic cardiomyopathy (principal); I48.19 Other persistent atrial fibrillation
CPT/HCPCS: 93010; 99214

== ENCOUNTER 2024-01-08 08:39 | Outpatient (REF) | payer MEDICARE, MEDICAID, SELFPAY ==
[2024-01-08 09:31] LABS: Hematocrit 39.4 % (42.0-52.0); Hemoglobin 13.7 g/dl (14.0-18.0); Mean Corpuscular HGB Conc 34.8 g/dl (31.0-36.0); Mean Corpuscular Hemoglobin 32.2 pg (27.0-33.0); Mean Corpuscular Volume 92.5 fL (80.0-98.0); Platelet Count 186 X10*3/uL (160-400); Red Blood Count 4.26 X10*6/uL (4.60-5.80); Red Cell Distribution Width 12.6 % (11.0-16.0); White Blood Count 4.9 X10*3/uL (4.8-10.8)
[2024-01-08 10:00] LABS: Anion Gap 8 (12-20); Blood Urea Nitrogen 17 mg/dL (9-16); Carbon Dioxide 27 mmol/L (22-29); Chloride 106 mmol/L (96-108); Estimated Glomerular Filt Rate > 60; Glucose Random 87 mg/dL (60-115); Potassium 4.2 mmol/L (3.3-5.1); Sodium 137 mmol/L (135-145)
[2024-01-08 10:17] LABS: TSH reflex Free T4 2.78 uIU/mL (0.32-4.0)
[2024-01-14 23:57] LABS: PSA, Ultra Sensitive 6.76 ng/mL
== END 2024-01-08 08:40 | disposition home or self-care (01) ==
LOC: HO.LAB 08:39
PROVIDERS: PCP Physician Assistant; Visit Provider Internal Medicine Cardiovascular Disease
DX: I25.5 Ischemic cardiomyopathy (principal); I48.19 Other persistent atrial fibrillation; Z12.5 Encounter for screening for malignant neoplasm of prostate; Z79.899 Other long term (current) drug therapy
CPT/HCPCS: 36415; 80048; 84153; 84443; 85027; 93005; 99212

== ENCOUNTER 2024-01-27 08:53 | Outpatient (AMB) | payer MEDICARE, MEDICAID, SELFPAY ==
[2024-01-27 08:53] VITALS: BP 100/68; PULSE 77; O2SAT 97; BMI 27.5
--- NOTE | 2024-01-27 08:53 | A.OFFPC_ITS ---
Vital Signs 01/27/24 08:53 Height 6 ft 2 in Weight 214 lb 0.4 oz BMI 27.5 BP 100/68 Blood Pressure Location Lt brachial Position Sitting Pulse 77 Pulse Source Pulse Oximeter Pulse Oximetry (%) 97 Oxygen Delivery Method Room Air Intake Visit Reasons: PE Intake Note: Patient is here today for a physical. Hose Inspector Required: No Allergies amoxicillin [AMOXICILLIN] Adverse Reaction (Intermediate, Verified 01/27/24 09:04) STOMACH UPSET Medication List - Last Reconciled 01/27/24 by Donnie Garcia PA-C acetaminophen ER 650 mg PO Q12H PRN 10 days apixaban (Eliquis) 5 mg PO BID 90 days metoprolol tartrate 50 mg PO BID 90 days sacubitril-valsartan 24-26 mg (Entresto) 1 tab PO BID Tobacco use date assessed: 01/27/24 Fall risk assessment: No Falls in past year Last assessed Fall Risk: 01/27/24 Dental Screening Dental Screen Date: 01/27/24 Did you have a dental visit in the last 12 months?: Yes Did you have a dental problem in the last 6 months where you did not have access to dental care?: No Was dental information given to patient?: Patient has dentist HPI PE HPI Details Patient is a 68-year-old male here today for annual physical.? Patient has a past medical history significant for persistent AFib, NSTEMI, cardiomyopathy. 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 ?Persistent AFib :? Followed by Cardiology, most recent Holter monitor showing acceptable rate control with metoprolol. He? was previously cardioverted? x 2..? Has failed rhythm control. Will be followed with cardiac event monitor and echocardiograms.? Continues on Eliquis 5 mg b.i.d without any overt signs of bleeding. .. elevated PSA: Was seening urology in the past, still does have nocturia. Has gotten biopsy in the past with a low harvey score.? He continues to have his PSA followed every 6 months.? Otherwise denies any week urinary flow or urination or nocturia. We discussed trying tamsulosin for urinary symptoms and nocturia any still considering. . Colon cancer screening:? Dr. Rojas-->? Barium rectal done in 2007- sigmoid diverticulum. Still considering Cologuard vaccine: UTD with COVID Vaccine. Need to tetanus vaccine, Needs PCV-20, Need Shingrex -considering these vaccine Laboratory Tests 01/25/23 01/08/24 03:20 09:17 Hgb 13.7 L 13.7 L Creatinine 0.79 PSA Screen 7.54 H PSA Ultra-Sensitiv e 6.76 PFSH Medical History Seasonal allergies Low back pain Elevated TSH NSTEMI (non-ST elevated myocardial infarction) Syncope Atrial fibrillation Cardiomyopathy Hemochromatosis carrier PAF (paroxysmal atrial fibrillation) Basal cell carcinoma Varicose veins of left lower extremity Headaches due to old head injury Elevated PSA Surgical History H/O right inguinal hernia repair (08/26/22) Hx of colonoscopy History of cardioversion (~11/15/20) Hx of vein stripping S/P left inguinal herniorrhaphy Family History Father Lymphoma Mother Hemochromatosis Factor V Leiden Esophageal cancer Social History (Updated 01/27/24 @ 09:15 by Donnie Garcia PA-C) Household Members: Spouse Housing: House Are you a primary resident care technician to a significant other at home: No Do you presently have visiting nurse or other home services: No Alcohol intake: current Alcohol intake frequency: a few times a month Alcohol type: beer Patient Tobacco Use Status: Never used Tobacco Tobacco use type: Cigarette e-Cigarette/Vaping Use: Never Used Second Hand Smoke Exposure: No service: No Current occupational status: employed 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 Cognitive needs: No Hearing needs: No Vision needs: No Questionnaire PHQ-9 Over the last 2 weeks, how often have you been bothered by any of the following problems? 1. Little interest or pleasure in doing things: not at all 2. Feeling down, depressed, or hopeless: not at all 3. Trouble falling or staying asleep, or sleeping too much: not at all 4. Feeling tired or having little energy: not at all 5. Poor appetite or overeating: not at all 6. Feeling bad about yourself - or that you are a failure or have let yourself or your family down: not at all 7. Trouble concentrating on things, such as reading the newspaper or watching television: not at all 8. Moving or speaking so slowly that other people could have noticed. Or the opposite - being so fidgety or restless that you have been moving around a lot more than usual: not at all 9. Thoughts that you would be better off or of hurting yourself in some way: not at all Total score: 0 Depression Screening Interpretation: Negative Depression Screening Done: Yes 54551 - PHQ-9 Billing: Yes Source: Developed by Drs. John Malloy, Radha Cronin, Demetrio Sheehan and colleagues, with an educational max from [employer]. Thrive Questionnaire Date Thrive assessed: 01/27/24 I am a: Patient What is your living situation today?: I have a steady place to live Within the past 12 months, did the food you bought not last and you didn't have the money to get more?: Never true Within the past 12 months, did you worry whether your food would run out before you got money to buy more?: Never true Do you have trouble paying for medicines?: No Do you have trouble getting transportation to medical appointments?: No Do you have trouble paying your heating and electricity bill?: No Do you have trouble taking care of your child, family member or friend?: No Do you have trouble with day-to-day activities such as bathing, preparing meals, shopping, managing finances, etc.?: No Are you currently unemployed and looking for a job?: No Are you interested in more education?: No Please select the resources that you would like help with: None Currently or been in a relationship where the following occur: no concerns reported THRIVE Score: 0 AUDIT C Alcohol Use Questionnaire (AUDIT-C) 1. How often do you have a drink containing alcohol?: 2-3 times a week 2. How many drinks containing alcohol do you have on a typical day when you are drinking?: 1 or 2 3. How often do you have six or more drinks on one occasion?: Never Total Score: 3 INOCENCIO-7 AMB Questionnaire INOCENCIO-7 Date INOCENCIO - 7 assessed: 01/27/24 Feeling nervous, anxious, or on edge: 0 = Not at all Not being able to stop or control worryin = Not at all Worrying too much about different things: 0 = Not at all Trouble relaxin = Not at all Being so restless that it is hard to sit still: 0 = Not at all Becoming easily annoyed or irritable: 0 = Not at all Feeling afraid as if something awful might happen: 0 = Not at all Total INOCENCIO-7 score (0-4 normal; 5-9 mild; 10-14 moderate; 15-21 severe): 0 Source: Developed by Drs. John Malloy, Radha Cronin, Demetrio Sheehan and colleagues, with an educational max from [employer]. INOCENCIO-7 Assessment Billing INOCENCIO-7 Assessment Tool: INOCENCIO-7 Assessment 32255 Review of Systems Const Denies body aches, Denies chills, Denies excessive sweating, Denies fatigue, Denies fever(s) and Denies headache(s) Eyes Denies blurry vision ENT Denies dysphagia, Denies vertigo, Denies dizziness, Denies headache(s), Denies hearing loss and Denies tinnitus Card Denies chest pain, Denies chest pain with activity, Denies syncope, Denies irregular heart rhythm and Denies dyspnea Resp Denies chest congestion, Denies cough, Denies hemoptysis, Denies dyspnea and Denies wheezing GI Denies abdominal pain, Denies melena, Denies hematochezia, Denies coffee ground emesis, Denies dysphagia, Denies diarrhea, Denies nausea and Denies vomiting Denies difficulty urinating, Denies dysuria, Denies urinary frequency, Denies urinary hesitancy and Denies urinary urgency Musc Denies arthralgias, Denies limited range of motion, Denies muscle cramps and Denies muscle weakness Skin/Breast Denies rash and Denies skin ulcer Neuro Denies Abnormal speech present, Denies confusion, Denies vertigo, Denies dizziness, Denies syncope, Denies headache(s), Denies memory loss and Denies seizure-like activity Psych Denies anxiety, Denies confusion, Denies depression, Denies memory loss, Denies panic attacks and Denies paranoia Endo Denies excessive sweating, Denies fatigue, Denies flushing, Denies polydipsia and Denies polyuria Aller/Immun Denies wheezing Physical exam (Primary Care) Vital Signs: Last Vital Signs Pulse 77 01/27/24 08:53 BP 100/68 01/27/24 08:53 Pulse Ox 97 01/27/24 08:53 Oxygen Delivery Method Room Air 01/27/24 08:53 BMI result Body Mass Index 27.5 Tobacco/Smoking Status: Tobacco use Status Tobacco use date assessed 01/27/24 01/27/24 08:56 Patient Tobacco Use Status Never used Tobacco 01/27/24 09:15 Tobacco use type Cigarette 01/27/24 09:15 e-Cigarette/Vaping Use Never Used 01/27/24 09:15 PHQ-9: PHQ-9 Score PHQ-9: Total score 0 01/27/24 09:05 Depression Screening Interpretation: Negative Thrive Assessment: Date of Thrive Assessment Date Thrive assessed 01/27/24 01/27/24 09:01 Currently or been in a relationship where the following occur: no concerns reported Const General: cooperative, comfortable, no acute distress, alert and awake; No confusion Orientation/consciousness: oriented to person, oriented to place, patient oriented x3 and No confusion HENMT Head: Yes normocephalic Ears: external ears normal and TM's normal bilaterally Face and sinus: No sinus tenderness Mouth: Normal oral and palatal mucosa present and tongue normal Teeth and gingiva: dentition normal and gingiva normal Throat: Yes posterior oropharynx normal, Yes tonsils normal and Yes uvula midline Eyes Conjunctivae: conjunctivae normal Sclerae: sclerae normal Pupils: Equal, round and reactive pupils present EOM: EOMs intact bilaterally Direct Ophthalmoscopy: No no photophobia Neck Neck: Yes no lymphadenopathy, No tender and Yes no JVD Thyroid: Thyroid normal Carotids: no bruits Chest Chest palpation & inspection: no tenderness Resp Effort & Inspection: normal respiratory effort, no audible wheezes, not labored and no stridor Auscultation: no crackles, no rales, no rhonchi and no wheezes Cardio Jugular venous distension: no JVD Rate: regular rate, not bradycardic and not tachycardic Rhythm: regular rhythm Bruits: no carotid bruits Peripheral pulses: Peripheral pulses 2+ throughout GI Inspection: Yes normal to inspection, No abdominal wall ecchymosis and No visible herniation Palpation (GI): Soft to palpation, nontender, no guarding, not rigid and No hep atosplenomegaly present Auscultation: normoactive bowel sounds General: Yes no CVA tenderness Back/Spine/Pelvis Back: no CVA tenderness and No back tenderness Cervical Spine: cervical ROM normal Thoracic/Lumbar Spine: thoracic and lumbar spine normal to inspection, straight leg raise negative bilaterally, No thoraco-lumbar ROM limited and No lumbar spinal tenderness Skin Lesions: no lesions Rashes: no rashes Wounds: no wounds Neuro General: oriented to person, oriented to place, patient oriented x3, CN's II-XI intact bilaterally and No confusion Cranial nerves: Yes Equal, round and reactive pupils present and Yes Normal accommodation reflex present Cognition (Neuro): normal cognition Speech: No Abnormal speech present Gait exam (Neuro): Normal gait present Motor exam (neuro): 5/5 motor strength present throughout Extrem Right upper extremity: full ROM; no cyanosis Left upper extremity: full ROM; no cyanosis Right lower extremity: no edema Left lower extremity: no edema Psych Appearance: grossly normal Mental Status: mental status grossly normal Affect: normal affect Attitude: cooperative Thought process: Normal thought process present Assessment and Plan Assessment & Plan (1) Annual physical exam: Code(s): Z00.00 - Encounter for general adult medical examination without abnormal findings (2) Persistent atrial fibrillation: Code(s): I48.19 - Other persistent atrial fibrillation Plan: Continues to follow cardiology. Continues on Eliquis without any overt signs of bleeding. He continues with rate control medication with good effect on reducing his symptomatic AFib. As of HPI has had 2 cardioversions the past that were fairly unsuccessful. (3) Cardiomyopathy: Code(s): I42.9 - Cardiomyopathy, unspecified Qualifiers: Cardiomyopathy type: ischemic Qualified Code(s): I25.5 - Ischemic cardiomyopathy Plan: Continues on Entresto, no overt signs of Congestive heart failure today in exam. (4) Colon cancer screening: Code(s): Z12.11 - Encounter for screening for malignant neoplasm of colon Plan: Still considering Cologuard test (5) BPH associated with nocturia: Code(s): N40.1 - Benign prostatic hyperplasia with lower urinary tract symptoms; R35.1 - Nocturia Plan: Has stable PSA. Still does have nocturia. He is considering tamsulosin for his incomplete better emptying. (6) Tick bite: Code(s): W57.XXXA - Bitten or stung by nonvenomous insect and other nonvenomous arthropods, initial encounter Qualifiers: Encounter type: sequela Site of tick bite: unspecified site Qualified Code(s): W57.XXXS - Bitten or stung by nonvenomous insect and other nonvenomous arthropods, sequela Plan: Often working outside and often finds ticks on him.. Supply patient with prophylactic dose of doxycycline to use getting bit by a tick Orders: Orders TSH reflex Free T4 Today R79.89 - Other specified abnormal findings of blood chemistry Comprehensive Marine. Panel Fast Today I25.5 - Ischemic cardiomyopathy Complete Blood Count no Diff Today I25.5 - Ischemic cardiomyopathy Prostate Specific Antigen Scr Today R97.20 - Elevated prostate specific antigen [PSA], Z12.5 - Encounter for screening for malignant neoplasm of prostate Lipid Panel Today I25.5 - Ischemic cardiomyopathy Medications: New doxycycline monohydrate 200 mg (2 x 100 mg) PO DAILY 2 caps 0RF 1 day W57.XXXS - Bitten or stung by nonvenomous insect and other nonvenomous arthropods, sequela Patient Instructions: Goals: Continue good control over his AFib rhythm and rate Barriers: Busy lifestyle, staying compliant with medication Coding Level of Care Code Est Pt Prev Care >65y(93908) Diagnoses Annual physical exam Z00.00 Persistent atrial fibrillation I48.19 Ischemic cardiomyopathy I25.5 Cardiomyopathy type: ischemic Colon cancer screening Z12.11 BPH associated with nocturia N40.1; R35.1 Tick bite, unspecified site, sequela W57.XXXS Encounter type: sequela Site of tick bite: unspecified site Additional Codes INOCENCIO-7 Assessment Billing - INOCENCIO-7 Assessment Tool: INOCENCIO-7 Assessment 97471 ([id number])
== END 2024-01-27 09:41 | disposition home or self-care (01) ==
PROVIDERS: Visit Provider Physician Assistant
DX: Z00.00 Encounter for general adult medical examination without abnormal findings (principal); I48.19 Other persistent atrial fibrillation; I25.5 Ischemic cardiomyopathy; Z12.11 Encounter for screening for malignant neoplasm of colon; N40.1 Benign prostatic hyperplasia with lower urinary tract symptoms; R35.1 Nocturia; W57.XXXS Bitten or stung by nonvenomous insect and other nonvenomous arthropods, sequela
CPT/HCPCS: 99397

== ENCOUNTER 2024-08-26 08:00 | Outpatient (REF) | payer MEDICARE, MEDICAID, SELFPAY ==
[2024-08-26 09:07] LABS: Hemoglobin 14.3 g/dl (14.0-18.0); Mean Corpuscular Hemoglobin 31.4 pg (27.0-33.0); Mean Corpuscular Volume 92.1 fL (80.0-98.0); Mean Platelet Volume 9.4 fL (9.4-12.4); Platelet Count 172 X10*3/uL (160-400); Red Blood Count 4.56 X10*6/uL (4.60-5.80); Red Cell Distribution Width 12.6 % (11.0-16.0); White Blood Count 4.8 X10*3/uL (4.8-10.8)
[2024-08-26 09:56] LABS: Alanine Aminotransferase 39 U/L (0-40); Albumin Level 4.1 g/dL (3.5-5.0); Alkaline Phosphatase 63 U/L (39-117); Anion Gap 9 (12-20); Aspartate Amino Transferase 34 U/L (5-37); Bilirubin Total 1.7 mg/dL (0.0-1.0); Blood Urea Nitrogen 17 mg/dL (9-16); Calcium 8.6 mg/dL (8.4-10.2); Carbon Dioxide 26 mmol/L (22-29); Chloride 106 mmol/L (96-108); Cholesterol 162 mg/dL (<200); Estimated Glomerular Filt Rate > 60; Glucose Fasting 91 mg/dL (60-99); HDL Cholesterol 52 mg/dL (>40); LDL Cholesterol Calculated 100 mg/dL (<100); Potassium 4.3 mmol/L (3.3-5.1); Sodium 137 mmol/L (135-145); Total Protein 6.6 g/dL (6.5-8.0); Triglycerides 50 mg/dL (<150)
[2024-08-26 10:15] LABS: TSH reflex Free T4 4.37 uIU/mL (0.32-4.0)
== END 2024-08-26 08:01 | disposition home or self-care (01) ==
LOC: HO.LAB 08:00
PROVIDERS: PCP Physician Assistant; Visit Provider Physician Assistant
DX: I25.5 Ischemic cardiomyopathy (principal); R79.89 Other specified abnormal findings of blood chemistry; Z12.5 Encounter for screening for malignant neoplasm of prostate; R97.20 Elevated prostate specific antigen [PSA]
CPT/HCPCS: 36415; 80053; 80061; 84153; 84439; 84443; 85027

== ENCOUNTER → 2024-12-31 08:58 | Outpatient (REF) | payer MEDICARE, MEDICAID, SELFPAY ==
--- NOTE | 2024-12-31 09:00 | CA_ITS ---
Transthoracic Echocardiogram Patient (Last, First, Middle): Huber Keys R Gender: Male Date of : 1955 Age: 69 Procedure Date: 12/31/2024 Procedure Type: Transthoracic Echocardiogram Location: OP Height: 187.96 cm Weight: 95.26 kg BSA: 2.22 m2 Heart Rate: bpm BP: 110 / 68 mmHg [employer] Worker: TO Referring MD: Rk Shipman MD Symptoms: I25.5 - Ischemic cardiomyopathy Study Quality: Adequate Conclusions: - Normal left ventricular cavity size. There is normal left ventricular wall thickness. The left ventricular systolic function is mildly decreased. The visually estimated ejection fraction is between 40-45%. - Mildly increased right ventricular cavity size. There is low normal right ventricular systolic function. - The left atrium is severely dilated. The right atrium is severely dilated. - There is mild to moderate tricuspid valve regurgitation. Mildly elevated right atrial pressure. - There is mild dilatation of the ascending aorta measuring 3.80 cm. Findings Left Ventricle Normal left ventricular cavity size. There is normal left ventricular wall thickness. The left ventricular systolic function is mildly decreased. The visually estimated ejection fraction is between 40-45%. There is mild global hypokinesis. Diastolic function is indeterminate on the basis of available data. Right Ventricle Mildly increased right ventricular cavity size. There is low normal right ventricular systolic function. Atria The left atrium is severely dilated. The right atrium is severely dilated. Aortic Valve There is a normal trileaflet aortic valve. There is no aortic valve stenosis. There is trace (trivial) aortic valve regurgitation. Mitral Valve There is mild mitral valve regurgitation. There is no mitral valve stenosis. Pulmonic Valve The pulmonic valve is likely normal. There is trace pulmonic valve regurgitation. Tricuspid Valve Normal tricuspid valve structure. There is mild to moderate tricuspid valve regurgitation. Mildly elevated right atrial pressure. There is no evidence of pulmonary hypertension. Great Vessels There is mild dilatation of the ascending aorta measuring 3.80 cm. The visualized portions of the pulmonary artery and branches are normal. Venous The inferior vena cava is dilated and collapses greater than 50% with inspiration. Pericardium/Pleural There is no evidence of pericardial effusion. Prior Study Comparison Changes noted compared to prior study dated: 12/29/2023. EF 40-45% Measurements 2D Linear Measurements IVSd: 0.93 0.6-0.9/0.6-1.0 cm LVIDd: 5.43 3.9-5.3/4.2-5.9 cm LVIDd Index: 2.45 2.4-3.2/2.2-3.1 cm/m2 LVIDs: 4.26 2.0-3.6 cm LVPWd: 0.74 0.7-1.1 cm LA Diam: 5.00 2.7-3.8/3.0-4.0 cm LAIDs Index: 2.25 1.5-2.3 cm/m2 LV Mass: 206.35 67-162/88-224 g LV Mass Index: 92.95 43-95/49-115 g/m2 LVOT Diam: 2.30 3.0+(-)1.3 cm 2D Systolic Function EF 4C: 55.50 >55% EF 2C: 50.50 >55% EF BiP: 53.70 >55% Mitral Valve MV Pk E: 0.49 MV Decel Time: 188.00 E'Lateral: 13.40 E'Medial: 7.03 E/E' Med: 6.90 E/E' Lat: 3.60 PHT: 55.00 MVA PHT: 4.00 Decel Phelps: 2.71 MR Vol - PW Dopp: 19.92 MR VTI: 1.66 MR ERO: 12.00 MR Alias Fam: 0.36 MR RAD: 0.50 Aortic Valve AoV Pk Fam: 0.91 AoV Pk Grad: 3.00 LVOT LVOT Pk Fam: 0.79 LVOT Mn Fam: 0.53 LVOT VTI: 0.14 LVOT Pk Grad: 3.00 LVOT Mn Grad: 1.00 LVOT Diam: 2.30 LVOT Area: 4.15 Diastolic Function MV Pk E: 0.49 E'Medial: 7.03 E/E' Med: 6.90 E' Laterial: 13.40 E/E' Lat: 3.60 Right Ventricle TAPSE (mm): 19.70 TVS' Fam: 9.21 Tricuspid Valve TR Pk Fam: 1.67 TR Pk Grad: 11.00 RA Press: 8.00 RVSP: 19.00 Great Vessels Aorta Sinus of Valsalva: 3.64 2.0-3.5 cm Ao Asc: 3.80 2.1-3.4 cm Updated in Other Vendor System with Status of Final Kenny Isabel MD electronically signed on 01/02/2025 5:39:42 PM with status of Final
== END ==
LOC: HO.CARD 08:58
PROVIDERS: PCP Physician Assistant; Visit Provider Internal Medicine Cardiovascular Disease
DX: I25.5 Ischemic cardiomyopathy (principal)
CPT/HCPCS: 93306

== ENCOUNTER → 2024-12-31 09:00 | Outpatient (BNV) | payer MEDICARE, MEDICAID, SELFPAY | PROVIDERS: PCP Physician Assistant; Visit Provider Internal Medicine Cardiovascular Disease | DX: I25.5 Ischemic cardiomyopathy (principal); I51.7 Cardiomegaly; I34.0 Nonrheumatic mitral (valve) insufficiency; I36.1 Nonrheumatic tricuspid (valve) insufficiency | CPT/HCPCS: 93306 ==

== ENCOUNTER 2025-01-10 08:46 | Outpatient (AMB) | payer MEDICARE, MEDICAID, SELFPAY ==
--- NOTE | 2025-01-10 08:49 | MHC.OFFVIS ---
Vital Signs 01/10/25 08:50 Height 6 ft 2 in Weight 218 lb 4.122 oz BMI 28.0 BP 120/70 Blood Pressure Location Lt brachial Position Sitting Pulse 88 Intake Visit Reasons: 1 yr/f/up after echo Intake Note: 1 year follow-up after echo with ekg ? 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 He does not report any clear new symptoms although he said he was curtailed his activity especially due to winter and because of his heart condition. However he was able to maintain activity level as tolerated. Denies any symptoms of worsening shortness of breath, orthopnea, PND. Denies any prolonged fast heart rate although sometimes he feels his heart to be faster, has watch says heart is within normal limits. He takes all his medications religiously. No alcohol use. However recent echocardiogram showed reduction LV ejection fraction. 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 Elevated PSA Surgical History H/O right inguinal hernia repair (08/26/22) Hx of colonoscopy History of cardioversion (~11/15/20) Hx of vein stripping S/P left inguinal herniorrhaphy Family History Father Lymphoma Mother Hemochromatosis Factor V Leiden Esophageal cancer Social History Household Members: Spouse Housing: House Are you a primary health care legal assistant to a significant other at home: No Do you presently have visiting nurse or other home services: No Alcohol intake: current Alcohol intake frequency: a few times a month Alcohol type: beer Patient Tobacco Use Status: Never used Tobacco Tobacco use type: Cigarette e-Cigarette/Vaping Use: Never Used Second Hand Smoke Exposure: No service: No Current occupational status: employed 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 Cognitive needs: No Hearing needs: No Vision needs: No Review of Systems Const Denies chills, Denies fatigue, Denies fever(s), Denies frequent falls, Denies weakness, Denies weight gain and Denies weight loss ENT Denies dizziness Card Denies chest pain, Denies leg edema, Denies lightheadedness, Denies palpitations, Denies dyspnea, Denies dyspnea on exertion, Denies orthopnea and Denies other (loss of consciousness) Resp Denies cough, Denies dyspnea and Denies dyspnea on exertion GI Denies hematochezia and Denies change in stool character Musc Denies abnormal gait, Denies muscle weakness, Denies numbness, Denies radiating pain into limb and Denies tingling Neuro Denies abnormal gait, Denies dizziness, Denies frequent falls, Denies numbness, Denies tingling and Denies weakness Endo Denies fatigue and Denies palpitations Physical Exam Vital Signs: Last Vital Signs Pulse 88 01/10/25 08:50 BP 120/70 01/10/25 08:50 BMI result Body Mass Index 28.0 Const General: cooperative, comfortable, alert and awake Nutritional Appearance: average body habitus Orientation/consciousness: patient oriented x3 Limitations: no limitations Neck Neck: Yes trachea midline, Yes supple and Yes no JVD Resp Effort & Inspection: normal respiratory effort Auscultation: clear to auscultation bilaterally Cardio Jugular venous distension: no JVD Rhythm: abnormal rhythm irregularly irregular Heart sounds: S1 normal heart sound present and S2 normal heart sound present GI Auscultation: normal bowel sounds Skin General skin exam: no rashes or lesions noted Neuro General: patient oriented x3 and no focal motor deficits Extrem General: Yes no clubbing, cyanosis or edema Psych Appearance: grossly normal Office Procedures EKG Details: EKG shows atrial fibrillation with incomplete right bundle-branch block and left axis deviation. 22571-[id number], Complete Assessment & Plan Assessment & Plan (1) Cardiomyopathy: Code(s): I42.9 - Cardiomyopathy, unspecified Category: Medical Qualifiers: Cardiomyopathy type: ischemic Qualified Code(s): I25.5 - Ischemic cardiomyopathy Plan: Patient was worsening LV ejection fraction without any signs or symptoms of heart failure. Query progressive cardiomyopathy syndrome. Versus inadequate rate control with atrial fibrillation. Will obtain a Holter monitor in near future to assess with the same. Meanwhile will increase Entresto to 49-51 mg b.i.d. for further neurohormonal modulation. Advised to monitor blood pressure at home and log it. Advised to call me with any side effects. BNP in 1 week's time. Continue metoprolol as well for neurohormonal modulation. Signs and symptoms of heart failure were discussed. I in fact encouraged him to pursue more cardio endurance exercises to improve his and aerobic threshold. He understands and agrees. (2) Persistent atrial fibrillation: Code(s): I48.19 - Other persistent atrial fibrillation Category: Medical Plan: Persistent atrial fibrillation with rate control which may be borderline. Will obtain a Holter monitor as above. Chronic atrial fibrillation significant biatrial enlargement unlikely to pursue rhythm control approach and has failed rhythm control approach in the past. Continue full oral anticoagulation, currently on Eliquis 5 mg b.i.d.. Semi annual renal function test to be pursued. Will follow up in the clinic in 6 months time, sooner p.r.n.. Thank you for allowing me to partake in his care Orders: Orders Basic Metabolic Panel 1 Week I48.19 - Other persistent atrial fibrillation ECG holter monitor 48 hour 1 Week I48.19 - Other persistent atrial fibrillation Medications: New sacubitril-valsartan 49-51 mg (Entresto) 1 tab PO BID 60 tabs 5RF Discontinued sacubitril-valsartan 24-26 mg (Entresto) Discontinued Reason: Duplicate 1 tab PO BID 90 tabs 3RF Coding Level of Care Code Est Pt Level 4 (03302) Complex EM visit Add On G2211 Diagnoses Ischemic cardiomyopathy I25.5 Cardiomyopathy type: ischemic Persistent atrial fibrillation I48.19 CPT Codes EKG - CPT: 16026-Vlvbixelvobvfmahx, Complete ([id number])
[2025-01-10 08:50] VITALS: BP 120/70; PULSE 88; BMI 28.0
== END 2025-01-10 09:19 | disposition home or self-care (01) ==
PROVIDERS: PCP Physician Assistant; Visit Provider Internal Medicine Cardiovascular Disease
DX: I25.5 Ischemic cardiomyopathy (principal); I48.19 Other persistent atrial fibrillation
CPT/HCPCS: 93010; 99214; G2211

== ENCOUNTER → 2025-01-10 08:46 | Outpatient (BNVA) | payer MEDICARE, MEDICAID, SELFPAY | PROVIDERS: PCP Physician Assistant; Visit Provider Internal Medicine Cardiovascular Disease | DX: I25.5 Ischemic cardiomyopathy (principal); I48.19 Other persistent atrial fibrillation | CPT/HCPCS: 93005; 99212 ==

== ENCOUNTER → 2025-01-18 08:27 | Outpatient (REF) | payer MEDICARE, MEDICAID, SELFPAY ==
[2025-01-18 10:00] LABS: Anion Gap 8 (12-20); Blood Urea Nitrogen 18 mg/dL (9-16); Carbon Dioxide 27 mmol/L (22-29); Chloride 108 mmol/L (96-108); Estimated Glomerular Filt Rate > 60; Glucose Random 87 mg/dL (60-115); Potassium 3.8 mmol/L (3.3-5.1); Sodium 139 mmol/L (135-145)
== END ==
LOC: HO.CARD 08:27
PROVIDERS: PCP Physician Assistant; Visit Provider Internal Medicine Cardiovascular Disease
DX: I48.19 Other persistent atrial fibrillation (principal)
CPT/HCPCS: 36415; 80048; 93225

== ENCOUNTER 2025-03-24 15:13 | Outpatient (AMB) | payer MEDICARE, MEDICAID, SELFPAY ==
--- NOTE | 2025-03-24 15:23 | AM.OFFVISMDC ---
Intake Vital Signs 03/24/25 15:33 Height 6 ft 2 in Weight 214 lb BMI 27.5 BP 88/60 L Blood Pressure Location Lt brachial Position Sitting Pulse 75 Pulse Source Pulse Oximeter Temp 97.1 F Temp Source Temporal Artery Scan Pulse Oximetry (%) 95 Oxygen Delivery Method Room Air Intake Visit Reasons: AWV Make Up Man Required: No Accompanied by: Self / Same As Patient Allergies amoxicillin [AMOXICILLIN] Adverse Reaction (Intermediate, Verified 03/24/25 15:34) STOMACH UPSET HPI AWV HPI Details Patient is a 69-year-old male here today for annual wellness visit.? Patient has a past medical history significant for persistent AFib, NSTEMI, cardiomyopathy. Today we discussed patient's end of life planning, [place] of care and comprehensive care plan which was scanned into patient's documents. Colon cancer screening:? Dr. Rojas-->? Barium rectal done in 2007- sigmoid diverticulum. Still considering Cologuard vaccine: UTD with COVID Vaccine. Need to tetanus vaccine, Needs PCV-20, Need Shingrex -considering these vaccine HPI Comments History of Present Illness Details reviewed past medical history- yes reviewed surgical / hospitalization history- yes reviewed current medications- yes reviewed family history- yes home safety throw rugs? grab bars? raised toilet seat? working smoke detectors? activities of daily living difficulty bathing or showering? difficulty dressing? difficulty using the toilet? difficulty getting in and out of bed? difficulty walking? receives help from other person's with any of the above tasks? instrumental activities of daily living uses telephone - gets to place out of walking distance- go shopping for groceries- repairs own meals- does own minor home maintenance- does own laundry- does own housework- manages own money- currently takes medication- end of life planning discussed advanced directives- yes advanced directives on file? discussed wishes expressed in advanced directives. fall risk have you had any falls with injuries in the past year? have you had 2 or more falls in the past year? 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 Elevated PSA Surgical History H/O right inguinal hernia repair (08/26/22) Hx of colonoscopy History of cardioversion (~11/15/20) Hx of vein stripping S/P left inguinal herniorrhaphy Family History Father Lymphoma Mother Hemochromatosis Factor V Leiden Esophageal cancer Social History Household Members: Spouse Housing: House Are you a primary spiritual care coordinator to a significant other at home: No Do you presently have visiting nurse or other home services: No Alcohol intake: current Alcohol intake frequency: a few times a month Alcohol type: beer Patient Tobacco Use Status: Never used Tobacco Tobacco use type: Cigarette e-Cigarette/Vaping Use: Never Used Second Hand Smoke Exposure: No service: No Current occupational status: employed 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 Cognitive needs: No Hearing needs: No Vision needs: No Questionnaire Medicare Wellness Checkup What [age] What gender do you identify with?: male During the past 4 weeks, how much have you been bothered by emotional problems such as feeling anxious, depressed, irritable, sad or downhearted, and blue?: not at all During the past 4 weeks, has your physical & emotional health limited your social activities with family, friends, neighbors, or groups?: not at all During the past 4 weeks, how much bodily pain have you generally had?: very mild pain During the past 4 weeks, was someone available to help you if you needed & wanted help?: yes, as much as I wanted During the past 4 weeks, what was the hardest physical activity you could do for at least 2 minutes?: heavy Can you get to places out of walking distance without help? (For eg., can you travel alone on buses, taxis or drive your car?): Yes Can you go shopping for groceries or clothes without someone's help?: Yes Can you prepare your own meals?: Yes Can you do your housework without help?: Yes Because of any health problems, do you need the help of another person with your personal care needs such as eating, bathing, dressing or getting around the house?: No Can you handle your own money without help?: Yes During the past 4 weeks, how would you rate your health in general?: very good During the past 4 weeks how have things been going for you?: pretty well Are you having difficulties driving your car?: no Do you always fasten your seat belt when you are in a car?: yes, usually During past 4 weeks, have you been bothered by the following: never: Falling or dizzy when standing up, Sexual problems?, Trouble eating well?, Teeth or denture problems? and Problems using the telephone? and sometimes: Tiredness or fatigue? Have you fallen 2 or more times in the past year?: No Are you afraid of falling?: No Are you a smoker?: no During the past 4 weeks, how many drinks of wine, beer, or other alcoholic beverages did you have?: 2-5 drinks per week Do you exercise for about 20 minutes 3 or more times a week?: yes, all the time Have you been given information to help with the following?: no: Hazards in your house that might hurt you? and no: Keeping track of your medications? How often do you have trouble taking medicines the way you have been told to take them?: I always take medicine as prescribed How confident are you that you can control & manage most of your health problems?: very confident What is your race?: White Mini Mental State Exam (MMSE) Orientation What is the (year) (season) (date) (day) (month)?: year Where are we (state) (county) (town or city) (hospital) (floor)?: town or city Attention & Calculation (CHOOSE ONE) Spell WORLD backwards (DLROW): 5 letters Score Score: 7 Activity of Daily Living Bathing - sponge bath, tub bath or shower: receives no assistance (gets in/out by self, if usual bathing means Dressing - getting clothes from closets & drawers, including inner/outer garments & fasteners.: gets clothes & gets completely dressed without help Toileting - going to the 'toilet room' for urine/bowel elimination & cleaning self/arranging clothes: goes to toilet room, cleans self, arranges clothes without help Transfer: moves in & out of bed and chair without help (may use support object) Continence: controls urination/bowel movements completely by self Feeding: feeds self without help Total Score: 0 Information obtained from: patient Using telephone: independent Traveling: independent Shopping: independent Preparing meals: independent Housework: independent Taking medicine: independent Managing money: independent PHQ-9 Over the last 2 weeks, how often have you been bothered by any of the following problems? 1. Little interest or pleasure in doing things: not at all 2. Feeling down, depressed, or hopeless: not at all 3. Trouble falling or staying asleep, or sleeping too much: not at all 4. Feeling tired or having little energy: not at all 5. Poor appetite or overeating: not at all 6. Feeling bad about yourself - or that you are a failure or have let yourself or your family down: not at all 7. Trouble concentrating on things, such as reading the newspaper or watching television: not at all 8. Moving or speaking so slowly that other people could have noticed. Or the opposite - being so fidgety or restless that you have been moving around a lot more than usual: not at all 9. Thoughts that you would be better off or of hurting yourself in some way: not at all Total score: 0 Depression Screening Interpretation: Negative Depression Screening Done: Yes 23579 - PHQ-9 Billing: Yes Source: Developed by Drs. John Malloy, Radha Cronin, Demetrio Sheehan and colleagues, with an educational max from [employer]. Physical Exam Vital Signs: Last Vital Signs Temp 97.1 F 03/24/25 15:33 Pulse 75 03/24/25 15:33 BP 88/60 L 03/24/25 15:33 Pulse Ox 95 03/24/25 15:33 Oxygen Delivery Method Room Air 03/24/25 15:33 BMI result Body Mass Index 27.5 HEENT Other: hearing screening whisper test- pass Eyes Other: vision screening- 20 20 OS OD OU Other: urinary incontinence? no Neuro Other: balance Romberg- normal tandem walk test- able walk-in turned test-able rise from sit to stand- within 2 seconds Assessment & Plan Assessment & Plan (1) Annual wellness visit: Code(s): Z00.00 - Encounter for general adult medical examination without abnormal findings Plan: As per [facility] Orders: Orders Comprehensive Oliver. Panel Fast 03/24/25 I48.19 - Other persistent atrial fibrillation TSH reflex Free T4 03/24/25 R79.89 - Other specified abnormal findings of blood chemistry Lipid Panel 03/24/25 I25.5 - Ischemic cardiomyopathy Prostate Specific Antigen Scr 03/24/25 R97.20 - Elevated prostate specific antigen [PSA], Z12.5 - Encounter for screening for malignant neoplasm of prostate Complete Blood Count no Diff 03/24/25 I48.19 - Other persistent atrial fibrillation Referrals Cologuard Test Z12.11 - Encounter for screening for malignant neoplasm of colon Quality Reporting (2019) Depression/Bipolar (159/160/161/177) PHQ-9: Total score: 0 Coding Level of Care Code Medicare First (G0438) Diagnoses Annual wellness visit Z00.00 CPT Codes Advance Care Planning - Time spent: 1-15 minutes, not on file ([id number]) Additional Codes PHQ-9 - 20989 - PHQ-9 Billing: Yes ([id number]) Advance Care Planning Advance Care Planning discussion: Exists, not on file Date of discussion: 03/24/25 Forms completed: MOLST Time spent: 1-15 minutes, not on file Actual minutes spent: 2
[2025-03-24 15:33] VITALS: BP 88/60; PULSE 75; TEMP 36.2; O2SAT 95; BMI 27.5
== END 2025-03-24 16:10 | disposition home or self-care (01) ==
LOC: HO.HMCH 15:14
PROVIDERS: PCP Physician Assistant; Visit Provider Physician Assistant
DX: Z00.00 Encounter for general adult medical examination without abnormal findings (principal)

== ENCOUNTER → 2025-03-24 15:13 | Outpatient (BNVA) | payer MEDICARE, MEDICAID, SELFPAY | PROVIDERS: PCP Physician Assistant; Visit Provider Physician Assistant | DX: Z00.00 Encounter for general adult medical examination without abnormal findings (principal); I48.19 Other persistent atrial fibrillation; R79.89 Other specified abnormal findings of blood chemistry; I25.5 Ischemic cardiomyopathy; R97.20 Elevated prostate specific antigen [PSA] | CPT/HCPCS: 96127 ==

== ENCOUNTER 2025-07-05 09:00 | Outpatient (REF) | payer MEDICARE, MEDICAID, SELFPAY ==
[2025-07-05 12:58] LABS: Anion Gap 10 (12-20)
[2025-07-05 13:03] LABS: Blood Urea Nitrogen 16 mg/dL (9-16); Calcium 8.9 mg/dL (8.4-10.2); Carbon Dioxide 26 mmol/L (22-29); Chloride 106 mmol/L (96-108); Cholesterol 151 mg/dL (<200); Estimated Glomerular Filt Rate > 60; HDL Cholesterol 49 mg/dL (>40); Potassium 4.2 mmol/L (3.3-5.1); Sodium 138 mmol/L (135-145); Triglycerides 62 mg/dL (<150)
== END 2025-07-05 09:01 | disposition home or self-care (01) ==
LOC: HO.LAB 09:00
PROVIDERS: PCP Physician Assistant; Visit Provider Internal Medicine Cardiovascular Disease
DX: I48.19 Other persistent atrial fibrillation (principal); R79.89 Other specified abnormal findings of blood chemistry; I25.5 Ischemic cardiomyopathy; R97.20 Elevated prostate specific antigen [PSA]; I25.9 Chronic ischemic heart disease, unspecified; Z12.5 Encounter for screening for malignant neoplasm of prostate; Z79.899 Other long term (current) drug therapy
CPT/HCPCS: 36415; 80048; 80061; 84153; 84443; 85027; 99212

== ENCOUNTER 2025-07-05 09:00 | Outpatient (AMB) | payer MEDICARE, MEDICAID, SELFPAY ==
--- NOTE | 2025-07-05 09:13 | MHC.OFFVIS ---
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 Continues to remain pretty active participate in lumbar check contacts. He said he gets enough cardio during that. Denies any worsening shortness of breath although he said that has limitation to his overall activity level. Denies any lightheadedness, syncope. Denies any orthopnea, PND, leg edema except for 1 time when he had glenn ankle sweating. Does not recall if he had high salt diet the day prior to that. Denies any exertional chest pain. No bleeding issues or neurologic events. No prolonged palpitation irregular heartbeat [facility] Medical History (Updated 07/05/25 @ 09:35 by Rk Shipman MD) Accelerated idioventricular rhythm NSTEMI (non-ST elevated myocardial infarction) Seasonal allergies Low back pain Elevated TSH Syncope Atrial fibrillation Cardiomyopathy Hemochromatosis carrier PAF (paroxysmal atrial fibrillation) Basal cell carcinoma Varicose veins of left lower extremity Headaches due to old head injury Elevated PSA Surgical History H/O right inguinal hernia repair (08/26/22) Hx of colonoscopy History of cardioversion (~11/15/20) Hx of vein stripping S/P left inguinal herniorrhaphy Family History Father Lymphoma Mother Hemochromatosis Factor V Leiden Esophageal cancer Social History Household Members: Spouse Housing: House Are you a primary patient care provider to a significant other at home: No Do you presently have visiting nurse or other home services: No Alcohol intake: current Alcohol intake frequency: a few times a month Alcohol type: beer Patient Tobacco Use Status: Never used Tobacco Tobacco use type: Cigarette e-Cigarette/Vaping Use: Never Used Second Hand Smoke Exposure: No service: No Current occupational status: employed 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 Cognitive needs: No Hearing needs: No Vision needs: No Review of Systems Const Denies chills, Denies fatigue, Denies fever(s), Denies frequent falls, Denies weakness, Denies weight gain and Denies weight loss ENT Denies dizziness Card Denies chest pain, Denies leg edema, Denies lightheadedness, Denies palpitations, Denies dyspnea, Denies dyspnea on exertion, Denies orthopnea and Denies other (loss of consciousness) Resp Denies cough, Denies dyspnea and Denies dyspnea on exertion GI Denies hematochezia and Denies change in stool character Musc Denies abnormal gait, Denies muscle weakness, Denies numbness, Denies radiating pain into limb and Denies tingling Neuro Denies abnormal gait, Denies dizziness, Denies frequent falls, Denies numbness, Denies tingling and Denies weakness Endo Denies fatigue and Denies palpitations Physical Exam Vital Signs: Last Vital Signs Pulse 75 07/05/25 09:14 BP 120/70 07/05/25 09:14 BMI result Body Mass Index 27.5 Const General: cooperative, comfortable, alert and awake Nutritional Appearance: average body habitus Orientation/consciousness: patient oriented x3 Limitations: no limitations Neck Neck: Yes trachea midline, Yes supple and Yes no JVD Resp Effort & Inspection: normal respiratory effort Auscultation: clear to auscultation bilaterally Cardio Jugular venous distension: no JVD Rhythm: abnormal rhythm irregularly irregular Heart sounds: S1 normal heart sound present and S2 normal heart sound present GI Auscultation: normal bowel sounds Skin General skin exam: no rashes or lesions noted Neuro General: patient oriented x3 and no focal motor deficits Extrem General: Yes no clubbing, cyanosis or edema Psych Appearance: grossly normal Assessment & Plan Assessment & Plan (1) Cardiomyopathy: Code(s): I42.9 - Cardiomyopathy, unspecified Category: Medical Qualifiers: Cardiomyopathy type: ischemic Qualified Code(s): I25.5 - Ischemic cardiomyopathy Plan: [id number] LV systolic dysfunction consistent with nonischemic cardiomyopathy. Most likely cardiomyopathy process, unexplained. Not probably related to atrial fibrillation in his rate is very well controlled. Continue neurohormonal modulation with Entresto as well as metoprolol. Can not maximize therapy due to lowish blood pressure. He has no signs or symptoms of heart failure today. Importance of avoiding salt loading was discussed. Advised to call me with worsening symptoms. Follow-up echocardiogram in 6 months time. (2) Persistent atrial fibrillation: Code(s): I48.19 - Other persistent atrial fibrillation Category: Medical Plan: Chronic persistent atrial fibrillation has failed rhythm control approach in the past and now has significant biatrial enlargement. Unlikely to pursue rhythm control approach will maintain normal sinus rhythm. Continue rate control with metoprolol which is adequately optimized. Continue full oral anticoagulation, currently on apixaban 5 mg b.i.d.. Semi annual renal function test should be pursued. Will follow up in the clinic in 6 months time after an echocardiogram. Thank you for allowing me to partake in his care Orders: Orders Basic Metabolic Panel Today I48.19 - Other persistent atrial fibrillation Complete Blood Count no Diff Today I48.19 - Other persistent atrial fibrillation CA echo transthoracic complete 6 Months I48.19 - Other persistent atrial fibrillation Coding Level of Care Code Est Pt Level 4 (19572) Complex EM visit Add On G2211 Diagnoses Ischemic cardiomyopathy I25.5 Cardiomyopathy type: ischemic Persistent atrial fibrillation I48.19
[2025-07-05 09:14] VITALS: BP 120/70; PULSE 75; BMI 27.5
--- OUTSIDE RECORDS SUMMARY | 2025-07-05 10:21 | XMS_ITS | Patient Health Record ---
Author Organization [facility] Address [address] [place] [address] Care Team Providers Care Instructional Technologist Name Role Phone Jesus Alberto Rojas Jr [phone] Reason For Referral No Information Plan Of Treatment No Information
== END 2025-07-05 09:35 | disposition home or self-care (01) ==
LOC: HO.HCS 09:01
PROVIDERS: PCP Physician Assistant; Visit Provider Internal Medicine Cardiovascular Disease
DX: I25.5 Ischemic cardiomyopathy (principal); I48.19 Other persistent atrial fibrillation
CPT/HCPCS: 99214; G2211

== ENCOUNTER 2025-09-17 07:50 | Outpatient (REF) | payer MEDICARE, MEDICAID, SELFPAY ==
[2025-09-17 10:03] LABS: Alanine Aminotransferase 20 U/L (0-40); Albumin Level 4.3 g/dL (3.5-5.0); Alkaline Phosphatase 57 U/L (39-117); Anion Gap 12 (12-20); Aspartate Amino Transferase 25 U/L (5-37); Blood Urea Nitrogen 18 mg/dL (9-16); Calcium 8.6 mg/dL (8.4-10.2); Carbon Dioxide 26 mmol/L (22-29); Chloride 108 mmol/L (96-108); Estimated Glomerular Filt Rate > 60; Potassium 4.5 mmol/L (3.3-5.1); Sodium 141 mmol/L (135-145); Total Protein 6.5 g/dL (6.5-8.0)
== END 2025-09-17 07:51 | disposition home or self-care (01) ==
LOC: HO.LAB 07:50
PROVIDERS: PCP Physician Assistant; Visit Provider Physician Assistant
DX: I48.19 Other persistent atrial fibrillation (principal)
CPT/HCPCS: 36415; 80053